=== PATIENT | male | born 1945 | race Caucasian/White ===

== ENCOUNTER 2016-07-27 19:24 | Inpatient (IN) ==
[2016-07-27] MEDS ORDERED: ACETAMINOPHEN 325 MG TABLET PO PRN (19:54)
[2016-07-27] MEDS ORDERED: ONDANSETRON 4 MG/2 ML VIAL IV PRN (19:54)
--- NOTE | 2016-07-27 19:54 | Emergency Department Note ---
Juan Oneil Brittany, am scribing for, and in the presence of, Yoanna Dejesus DO 19:51. IOleg Debra, DO, personally performed the services described in this documentation, ascribed by Tiffani Martinez in my presence, and it is both accurate and complete [id number] . Arrival - Arrival Chief Complaint: Non-Specific Stated Complaint: pnu ED Nursing Triage Note: transfer from [facility] for further oevalutaion of pnumonia. Mode of Arrival: Stretcher Limitations: No Limitations Source: Patient, RN Notes Reviewed - History of Present Illness HPI Narrative: Mr. Randhawa is a 71 y/o white male presenting to the ED by EMS from [facility] for further evaluation of Pneumonia. Patient reports that he presented to [facility] initially for complaints of shortness of breath which onset about 2 weeks ago. He had associated symptoms of cough, palpitations , vertigo, and lightheadedness, but denied any chest pain, diaphoresis, fever, or chills. He reports that he thought his symptoms were getting better until today when he became suddenly short of breath. Patient has a history of Pulmonary Hypertension and Sarcoidosis. Patient has no other complaint/pain. Onset (ago): week(s) (2) Consistency: constant Allergies/Adverse Reactions: Allergies Allergy/AdvReac Type Severity Reaction Status Date / Time Hydromorphone [From Dilaudid] Allergy ANAPHYLAXIS Verified 01/09/16 03:13 levofloxacin [From Levaquin] AdvReac Joint Pain Verified 01/09/16 03:13 Home Medications: Home Medications Medication Instructions Recorded Confirmed Type Azithromycin Tab [Zithromax Tab] 250 mg PO Q48H 11/16/15 01/09/16 History Cholecalciferol (Vitamin D3) 400 unit PO DAILY 11/16/15 01/09/16 History [Vitamin D3] Cyanocobalamin (Vitamin B-12) 1,000 mcg PO DAILY 11/16/15 01/09/16 History [Vitamin B-12] Dexlansoprazole [Dexilant] 60 mg PO DAILY 11/16/15 01/09/16 History Finasteride 5 mg PO DAILY 11/16/15 01/09/16 History Furosemide Tab [Lasix Tab] 20 mg PO BID DIURETIC PRN 11/16/15 01/09/16 History predniSONE TAB [PredniSONE] 10 mg PO Q48H 11/16/15 01/09/16 History Cyclobenzaprine [Flexeril] 10 mg PO TID #14 tablet 01/09/16 Rx HYDROcodone/ACETAMIN 7.5-325 1 tablet PO Q6H #14 tablet 01/09/16 Rx [[place] 7.5-325] Review of System - Review of System 12 point system: reviewed and no additional remarkable complaints except as stated - Review of System Constitutional: Absent: chills, fever Respiratory: Present: cough, respiratory distress Cardiovascular: Present: palpitations Neurological: Present: as per HPI, vertigo Medical,Surgical,& Family Hx - Medical History Neurology: No history of: Seizures Respiratory: History of: Pulmonary Hypertension Other: History of: Miscellaneous Medical Problems (sarcoidosis) - Social History Smoking Status: Never smoker Frequency of Alcohol Use: None Type of Drug Use: None Exam Vital Signs: Vital Signs Pulse Rate 122 H 07/27/16 19:37 Respiratory Rate 20 07/27/16 19:37 Blood Pressure 85/61 07/27/16 19:37 O2 Sat by Pulse Oximetry 98 07/27/16 19:37 - General General appearance: alert, in no apparent distress - Head Head exam: Present: atraumatic, normocephalic, normal inspection - Eye Eye exam: Present: normal appearance, PERRL, EOMI - ENT ENT exam: Present: normal exam, normal oropharynx - Neck Neck exam: Present: normal inspection, full ROM, trachea midline - Chest Chest inspection: Present: normal inspection, symmetric chest wall rise - Respiratory Respiratory exam: Present: rales (both lung saab bilaterally), wheezes (both lung saab bilaterally). Absent: normal lung sounds bilaterally - Cardiovascular Cardiovascular exam: Present: normal rhythm, tachycardia, normal heart sounds. Absent: regular rate - Abdominal Exam Abdominal exam: Present: soft, normal bowel sounds - Extremities Exam Extremities exam: Present: normal inspection - Back Exam Back exam: Present: normal inspection - Neurological Exam Neurological exam: Present: alert, oriented X3, CN II-XII intact. Absent: motor sensory deficit - Psychiatric Psychiatric exam: Present: normal affect, normal mood - Skin Skin exam: Present: warm, dry Course Course Narrative: spoke with Dr Martinez for Dr Farnsworth , who will admit pt. pt is stable at this time Results - Labs Lab Results: I have reviewed the patients labs Disposition Clinical Impression: Pneumonia Case discussed with: patient, patient's family Disposition: Still a Patient Condition: Stable Time of Disposition: 19:53
[2016-07-27] MEDS: ALBUTEROL/IPRATROPIUM 3 ML NEB RESP TX SCH ×2 (21:28→22:46)
[2016-07-27] MEDS: SODIUM CHLORIDE 0.9% 1,000 ML IV SCH (21:48)
[2016-07-27] MEDS: cefTRIAXone 1,000 MG in SODIUM CHLORIDE 0.9% 100 ML IV SCH (22:49)
[2016-07-27] MEDS: DOCUSATE SODIUM 100 MG CAPSULE PO SCH (22:52)
[2016-07-28 04:12] LABS: Basophils # 0.1 10*3/uL (0.0-0.2); Basophils % 0.2 % (0.0-0.8); Hematocrit 36.1 VOL% (42.0-52.0); Hemoglobin 12.5 GM/DL (14.0-18.0); Immature Granulocytes % 1.9 %; Immature Granulocytes Absolute 0.54 #; Lymphocytes # 0.5 10*3/uL (1.4-4.0); Lymphocytes % 1.7 % (21.2-54.2); Mean Corpuscular HGB Conc 34.6 GM/DL (32-36); Mean Corpuscular Hemoglobin 29 PG (27-34); Mean Corpuscular Volume 84.5 FL (87-102); Monocytes # 1.3 10*3/uL (0.11-0.8); Monocytes % 4.4 % (1.7-12.7); Neutrophils # 26.7 10*3/uL (1.4-7.4); Neutrophils % 91.8 % (38.7-73.9); Platelet Count 178 T/CUMM (130-400); Red Blood Count 4.27 MC/CUMM (3.8-5.5); Red Cell Distribution Width 13.8 % (9.3-17.3)
[2016-07-28 04:52] LABS: Anisocytosis Slight; Band Neutrophils 2 % (0-10); Lymphocytes 2 % (20-55); Microcytosis Slight; Platelet Estimate Normal; Segmented Neutrophils 93 % (50-85); Total Cells Counted 100
[2016-07-28] MEDS: SODIUM CHLORIDE 0.9% 1,000 ML IV SCH ×3 (05:50→20:58)
--- NOTE | 2016-07-28 07:26 | XRay Report ---
XR chest 2V Indication: Shortness of breath. Comparison: Chest x-ray 07/27/2016 Technique: PA and lateral chest x-ray was performed. Findings: Airspace opacities previously within the mid left lung have partially cleared. Diffuse parenchymal scarring is again demonstrated and a pleural-based density along the upper lateral left pleural surface remains present. Blunting the costophrenic angles is stable. Bilateral perihilar airspace opacification and interstitial stranding is again demonstrated. Partially calcified mediastinal and hilar lymph nodes appear stable. Heart size appears normal. Bones and soft tissues demonstrate no significant abnormalities. Impression: 1. Diffuse parenchymal scarring is again demonstrated with interval partial clearing of airspace opacities from the mid left lung parenchyma. Pleural-based density left upper chest is stable in size. 2. Partially calcified mediastinal and hilar lymph nodes are present suggesting prior granulomatous disease or sarcoid. 07/28/2016 7:21 AM PROCEDURE INTERPRETED AT [facility] DEPARTMENT OF RADIOLOGY Final Report Signed by: Dr. Yovani Rees
--- NOTE | 2016-07-28 07:39 | Family Practice History&Phys ---
Assessment and Plan (1) Sarcoidosis Status: Acute Assessment and plan: 07/28/2016: Patient receiving IV steroids at this time. Will defer to pulmonary as to whether to continue or a rapid taper Current Visit: Yes (2) Cervical spondylitis with radiculitis Status: Acute Assessment and plan: 08-12: Patient does see Dr. Oliveira for this and gets epidural injections. He is currently getting pain medicines Current Visit: Yes (3) Pneumonia Status: Acute Assessment and plan: 08-12: We do have him on antibiotics at this time. His white count was 29,000, unsure if this was related to steroids or current pulmonary infiltrate or combination Current Visit: Yes History of Present Illness Chief complaint: Pneumonia, severe bronchospasm, sarcoidosis history History of present illness: Mr. Randhawa is a 71 year old male A primary patient of Dr. Priscilla Farnsworth, was seen at [facility] in [place] after he he started having severe bronchospasms/coughing spells. 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 This is when the symptoms began and he could not stop coughing. At [place] it was noted that he had a infiltrate in his lungs and was sent down to [facility] for further evaluation and treatment for pneumonia. He states his oxygen sats were in the 70s and that his blood pressure was as low as 60-70. Was doing okay, prior to this episode. He denies any recent fever. As mentioned he does have a history of sarcoidosis which she has had for many years and has been seen in [place] [employer] for this by Dr. Teague (a cotton washer). Is scheduled to see Dr. Jose Manuel Farnsworth this month. At this time is stable. I did not see his chest x- ray from [place] but I did order one this morning here at [place]. His white count this morning was 29,000. He has been started on antibiotic and I am going to put him on steroids. We will get pulmonary to see him today and appreciate their consult and direction Home Medications Medication Instructions Recorded Confirmed Type Cholecalciferol (Vitamin D3) 400 unit PO DAILY 11/16/15 07/27/16 History [Vitamin D3] Cyanocobalamin (Vitamin B-12) 1,000 mcg PO DAILY 11/16/15 07/27/16 History [Vitamin B-12] Dexlansoprazole [Dexilant] 60 mg PO DAILY 11/16/15 07/27/16 History Finasteride 5 mg PO DAILY 11/16/15 07/27/16 History predniSONE TAB [PredniSONE] 10 mg PO Q48H 11/16/15 07/27/16 History Albuterol Neb [Proventil Neb] 2.5 mg RESP TX Q6H PRN 07/27/16 07/27/16 History Fluticasone/Salmeterol 500-50 1 puff INH BID 07/27/16 07/27/16 History [Advair 500-50] guaiFENesin [Mucinex] 600 mg PO BID 07/27/16 07/27/16 History Allergies Allergy/AdvReac Type Severity Reaction Status Date / Time Hydromorphone [From Dilaudid] Allergy ANAPHYLAXIS Verified 01/09/16 03:13 levofloxacin [From Levaquin] AdvReac Joint Pain Verified 01/09/16 03:13 12 point system: reviewed and no additional remarkable complaints except as stated (That mentioned in the history and physical, and he also has a history of chronic pain in the cervical spine and does receive epidural injections) Medical,Surgical,& Family Hx - Medical History Neurology: No history of: Seizures HEENT: History of: Ear Problem (gets stopped up) Endocrine: Comment Only: Thyroid Disorder (was told levels were low today and had ultrasound) Rheumatology: History of;: Rheumatoid Arthritis Respiratory: History of: Pulmonary Hypertension, Respiratory Problems ( sarcodosis, pseudomonas in bronchial washing, chest tubes from collapsed silvia) Genitourinary: History of: Prostate Problems (enlarged prostate) Gastrointestinal: History of: GERD, GI Problems (barrets disease) Musculoskeletal: History of: Back/Neck Problems, Musculoskeletal Problems ( takes epidurals for chronic neck pain) Other: History of: Cancer (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), Miscellaneous Medical Problems (sarcoidosis) - Surgical History Cardiac Surgeries: Sugical HX of: Cardiac Catheterization Abdominal Surgeries: Surgical HX of: Colonoscopy, EGD - Family History Family History: Reports;: Family Cancer (sister had breast and brain, mom had ovarian), Family Diabetes (father), Family Heart Disease (father) Denies;: Family Anesthesia Reaction, Family Hematology, Family Hypertension, Family Psychiatric Problems, Family Stroke - Social History Smoking Status: Never smoker Frequency of Alcohol Use: None Type of Drug Use: None Exam - Constitutional Vitals: Period Temp Pulse Resp BP Sys/De Paz Pulse Ox Last 24 Hr 97.3 F-98.2 F 92-122 18-26 85-115/56-69 93-100 Exam: Generally very pleasant gentleman. He has chronic issues as noted. Admits that he has a mild headache. Is very alert and oriented. Not having coughing spells at present. HEENT neck is supple, trachea is midline. He did have a thyroid ultrasound done yesterday. No respiratory stridor Cardiovascular rate is regular no gallop or rub is appreciated Lungs there are a few basilar rales and he also has some wheezing scattered but no respiratory distress Abdomen soft nondistended patient is somewhat small in stature in size and perhaps a little emaciated general Extremities no clubbing cyanosis or edema Neurologically fully intact. No cranial nerve deficits or lateralizing motor or sensory deficits Results - Labs CBC & BMP: 07/28/16 03:27
[2016-07-28] MEDS: ALBUTEROL/IPRATROPIUM 3 ML NEB RESP TX SCH ×3 (07:50→20:08)
--- NOTE | 2016-07-28 09:39 | Pulmonology Consult Note ---
Assessment and Plan (1) Pulmonary hypertension Status: Acute Assessment and plan: This is secondary to his sarcoid. It was treated with Adcirca but that was not helping him. That was discontinued. Cardiology at [facility] had him on that. Current Visit: Yes (2) Acute and chronic respiratory failure Status: Acute Assessment and plan: Severe hypoxemia which is improved with nasal oxygen. Need to check ABGs Current Visit: Yes (3) Pneumonia Status: Acute Assessment and plan: Has very thick yellow sputum. I suspect that this will be a gram-negative 1 so we will add Zosyn. Current Visit: Yes (4) Sarcoidosis Status: Acute Assessment and plan: Has had sarcoid over 30 years. Likely it is inactive at present but he is on low-dose prednisone 10 mg every other day. Agree with treating with higher dose of steroids during the exacerbation Current Visit: Yes (5) Cervical spondylitis with radiculitis Status: Acute Assessment and plan: He has had multiple injections and takes chronic pain medications. Current Visit: Yes History of Present Illness Chief complaint: Cough shortness of breath History of present illness: Mr. Randhawa is a 71 year old male who has a history of sarcoid for 30 years. He was followed by Dr. Farnsworth until about 3 years ago. He was having recurrent Pseudomonas infections. He was referred to [facility]. Found to have pulmonary hypertension secondary to his sarcoid. Was tried on some medication for that but it did not help so he was turned back over to the pulmonary doctors at [facility]. He is currently only on 10 mg every other day of prednisone. He is on Advair for COPD. He was a smoker until the mid 80s as well. He is on oxygen at home 2 L continuously. He developed increased cough congestion and apparently got a mucous plug yesterday went to the emergency room in [place]. Oxygen saturation was in the 70s and he was referred here. He has an elevated white count of 29,000. He is feeling better now that he has had medications and oxygen here. His oxygen saturation is come up into the 90s on 3 L nasal oxygen. Home Medications Medication Instructions Recorded Confirmed Type Cholecalciferol (Vitamin D3) 400 unit PO DAILY 11/16/15 07/27/16 History [Vitamin D3] Cyanocobalamin (Vitamin B-12) 1,000 mcg PO DAILY 11/16/15 07/27/16 History [Vitamin B-12] Dexlansoprazole [Dexilant] 60 mg PO DAILY 11/16/15 07/27/16 History Finasteride 5 mg PO DAILY 11/16/15 07/27/16 History predniSONE TAB [PredniSONE] 10 mg PO Q48H 11/16/15 07/27/16 History Albuterol Neb [Proventil Neb] 2.5 mg RESP TX Q6H PRN 07/27/16 07/27/16 History Fluticasone/Salmeterol 500-50 1 puff INH BID 07/27/16 07/27/16 History [Advair 500-50] guaiFENesin [Mucinex] 600 mg PO BID 07/27/16 07/27/16 History Allergies Allergy/AdvReac Type Severity Reaction Status Date / Time Hydromorphone [From Dilaudid] Allergy ANAPHYLAXIS Verified 01/09/16 03:13 levofloxacin [From Levaquin] AdvReac Joint Pain Verified 01/09/16 03:13 12 point system: reviewed and no additional remarkable complaints except as stated - Constitutional Constitutional: Present: malaise, weakness - Cardiovascular Cardiovascular: Present: dyspnea, dyspnea on exertion - Respiratory Respiratory: Present: cough, dyspnea, hemoptysis (He has had some blood- streaked sputum), dyspnea on exertion, wheezing, change in phlegm color - Gastrointestinal Gastrointestinal: Present: constipation - Musculoskeletal Musculoskeletal: Present: back pain (Has injections in his neck for cervical spondylosis) Exam (Pulmonay) H&P - Constitutional Vitals: Period Temp Pulse Resp BP Sys/De Paz Pulse Ox Last 24 Hr 97.3 F-98.2 F 92-122 18-26 85-115/56-69 93-100 Exam: Patient is alert and oriented. Vital signs are normal. Oxygen saturation 95% on 3 L. Pupils react to light. Throat is clear. Neck supple no bruits. Chest reveals some scattered musical rhonchi bilaterally. Heart normal rate rhythm no murmurs. Abdomen soft nontender no masses. Extremities no clubbing cyanosis edema. Calves nontender. Medical,Surgical,& Family Hx - Medical History Neurology: No history of: Seizures HEENT: History of: Ear Problem (gets stopped up) Endocrine: Comment Only: Thyroid Disorder (was told levels were low today and had ultrasound) Rheumatology: History of;: Rheumatoid Arthritis Respiratory: History of: Pulmonary Hypertension, Respiratory Problems ( sarcodosis, pseudomonas in bronchial washing, chest tubes from collapsed silvia) Genitourinary: History of: Prostate Problems (enlarged prostate) Gastrointestinal: History of: GERD, GI Problems (barrets disease) Musculoskeletal: History of: Back/Neck Problems, Musculoskeletal Problems ( takes epidurals for chronic neck pain) Other: History of: Cancer (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), Miscellaneous Medical Problems (sarcoidosis) - Surgical History Cardiac Surgeries: Sugical HX of: Cardiac Catheterization Abdominal Surgeries: Surgical HX of: Colonoscopy, EGD - Family History Family History: Reports;: Family Cancer (sister had breast and brain, mom had ovarian), Family Diabetes (father), Family Heart Disease (father) Denies;: Family Anesthesia Reaction, Family Hematology, Family Hypertension, Family Psychiatric Problems, Family Stroke - Social History Smoking Status: Never smoker Frequency of Alcohol Use: None Type of Drug Use: None Results - Labs CBC & BMP: 07/28/16 03:27 Lab Results: I have reviewed the past 24 hour labs - Diagnostic Findings Procedure: Chest x-ray: image reviewed by me (Chronic interstitial changes bilaterally with some hyperinflation. Really no significant change since x-ray of 2014 here.)
[2016-07-28] MEDS: ENOXAPARIN 30 MG/0.3 ML SYRINGE SUBCUT SCH (09:49)
[2016-07-28] MEDS: methylPREDNISolone SOD SUC 125 MG/2 ML VIAL IV SCH ×2 (09:49→18:46)
[2016-07-28] MEDS: DOCUSATE SODIUM 100 MG CAPSULE PO SCH ×2 (09:51→20:58)
[2016-07-28] MEDS: PANTOPRAZOLE 40 MG TABLET PO SCH (09:51)
[2016-07-28] MEDS: FINASTERIDE 5 MG TABLET PO SCH (09:54)
[2016-07-28] MEDS: ACETAMINOPHEN 500 MG TABLET PO SCH ×5 (10:18→20:57)
[2016-07-28] MEDS: FLUTICASONE/SALMETEROL 500-50 DISKUS 14 DOSE INH SCH ×2 (10:18→20:58)
[2016-07-28] MEDS: PIPERACILLIN/TAZOBACTAM 3,375 MG in SODIUM CHLORIDE 0.9% 100 ML IV SCH ×2 (13:29→18:45)
[2016-07-28] MEDS: DORNASE ALFA 2.5 MG/2.5 ML VIAL RESP TX SCH (20:08)
[2016-07-28] MEDS: cefTRIAXone 1,000 MG in SODIUM CHLORIDE 0.9% 100 ML IV SCH (20:57)
[2016-07-28] MEDS: METHOCARBAMOL 750 MG TABLET PO PRN (20:58)
[2016-07-29] MEDS ORDERED: METHOCARBAMOL 750 MG TABLET PO SCH
[2016-07-29] MEDS: ALBUTEROL/IPRATROPIUM 3 ML NEB RESP TX SCH ×4 (00:10→21:46)
[2016-07-29] MEDS: METHOCARBAMOL 750 MG TABLET PO PRN ×2 (06:17→09:37)
[2016-07-29] MEDS: PIPERACILLIN/TAZOBACTAM 3,375 MG in SODIUM CHLORIDE 0.9% 100 ML IV SCH ×2 (06:17→15:31)
[2016-07-29] MEDS: SODIUM CHLORIDE 0.9% 1,000 ML IV SCH (06:17)
[2016-07-29] MEDS: methylPREDNISolone SOD SUC 125 MG/2 ML VIAL IV SCH ×2 (06:17→18:10)
[2016-07-29] MEDS: ENOXAPARIN 30 MG/0.3 ML SYRINGE SUBCUT SCH (06:18)
[2016-07-29] MEDS: DORNASE ALFA 2.5 MG/2.5 ML VIAL RESP TX SCH ×2 (07:28→21:46)
[2016-07-29] MEDS ORDERED: ALBUTEROL/IPRATROPIUM 3 ML NEB RESP TX PRN (09:02)
[2016-07-29] MEDS: ACETAMINOPHEN 500 MG TABLET PO SCH ×4 (09:36→22:31)
[2016-07-29] MEDS: FINASTERIDE 5 MG TABLET PO SCH (09:37)
[2016-07-29] MEDS: DOCUSATE SODIUM 100 MG CAPSULE PO SCH ×2 (09:37→22:31)
[2016-07-29] MEDS: PANTOPRAZOLE 40 MG TABLET PO SCH (09:37)
[2016-07-29] MEDS: FLUTICASONE/SALMETEROL 500-50 DISKUS 14 DOSE INH SCH ×2 (09:37→21:43)
--- NOTE | 2016-07-29 10:26 | Pulmonology Progress Note ---
Pulmonary - PN: Subj Interval history: This is a 71-year-old white male patient who was seen along with his . I am seeing this patient for . This patient has sarcoidosis. He probably has pneumonia. He said thick tenacious sputum which is been hard to mobilize. He said some desaturation. In the past she was followed in the clinic but now is [facility] at [facility]. Dr. Jose Manuel Farnsworth will pick him up next week. This patient complains of pain in his lower anterior right chest. This is reproduced with pressure over the costochondral junctions in this area. Will treat this with topical Flector patches. On his old chest x-ray he has fluid in this area so it is possible this more to the pain in the musculoskeletal component. The patient is having trouble mobilizing his sputum. He is already on Pulmozyme and he is getting 9 duo nebs 4 times daily. I have increased this to 4 times daily and as needed and his is asked me to add Acapella which she calls "duck call Admit white blood cell count was 29,000. There are no positive cultures reported. Labs been reviewed. Medicines been reviewed Physical exam. Vital signs. See below. Psychiatric oriented 3 Face. Symmetrical. Lips and tongue are normal Neck. Symmetrical. No meningismus Lymphatics. No submandibular cervical supraclavicular or epitrochlear adenopathy Chest. Loose large airway congestion. Tender over the right lower anterior chest. Heart. No gallop Abdomen. Positive bowel sounds Lower extremities. No edema The remainder the physical exam is negative. Plan. 1. Continue present regimen 2. Add Flector patches 3. Add Acapella Exam (Progress Note) - Constitutional Vitals: Period Temp Pulse Resp BP Sys/De Paz Pulse Ox Last 24 Hr 96.6 F-98.3 F 97-115 18-24 116-139/69-77 90-99 Results - Labs CBC & BMP: 07/28/16 03:27
[2016-07-29 10:44] LABS: Hematocrit 35.1 VOL% (42.0-52.0); Hemoglobin 12.3 GM/DL (14.0-18.0); Immature Granulocytes % 1.1 %; Immature Granulocytes Absolute 0.26 #; Lymphocytes # 0.3 10*3/uL (1.4-4.0); Lymphocytes % 1.2 % (21.2-54.2); Mean Corpuscular Hemoglobin 29 PG (27-34); Mean Corpuscular Volume 83.2 FL (87-102); Mean Platelet Volume 9.8 FL (9.6-12.0); Monocytes # 0.9 10*3/uL (0.11-0.8); Neutrophils # 21.4 10*3/uL (1.4-7.4); Neutrophils % 93.7 % (38.7-73.9); Platelet Count 198 T/CUMM (130-400); Red Blood Count 4.22 MC/CUMM (3.8-5.5); Red Cell Distribution Width 13.7 % (9.3-17.3); White Blood Count 22.8 T/CUMM (4-12)
[2016-07-29] MEDS: DICLOFENAC 1.3% PATCH 5/PACK TRANSDERM SCH ×2 (10:47→22:32)
--- NOTE | 2016-07-29 11:19 | Internal Med Progress Note ---
Assessment and Plan (1) Pneumonia Status: Acute Assessment and plan: 71-year-old male admitted to acute care * Acute on chronic respiratory failure. He will be continued on oxygen. He is getting nebulizer treatment * Pneumonia. Patient is on antibiotics. Cultures are pending * Pulmonary hypertension. This is a major component of his shortness of breath * Abdominal pain. Patient is constipated. Will check KUB. Will also check liver functions and amylase and lipase * History of sarcoidosis. On chronic low-dose prednisone * Discussed with patient and his Current Visit: Yes (2) Abdominal pain Status: Acute Current Visit: Yes (3) Constipation Status: Acute Current Visit: Yes (4) Pulmonary hypertension Status: Acute Current Visit: Yes (5) Sarcoidosis Status: Acute Current Visit: Yes Internal Medicine - PN: Subj Interval history: Patient is not feeling better this morning. He feels more short of breath and is having abdominal pain. He has been constipated for at least 5 days. He is still coughing up phlegm. Exam (Progress Note) - Constitutional Vitals: Period Temp Pulse Resp BP Sys/De Paz Pulse Ox Last 24 Hr 96.6 F-98.3 F 97-115 18-24 116-139/69-77 90-99 Exam: Examination: GENERAL: NAD. HEENT: PERRLA. EOMI. oral candidiasis NECK: Neck is supple. CVS: Regular rate and rhythm. S1 and S2 are normal. RESPIRATORY: Decreased air entry overall with bilateral rhonchi. Tenderness in right lower chest wall ABDOMEN: Soft but tender. Bowel sounds are EXT: No edema. Peripheral pulses are present. J2EE CONSULTANT: Patient is awake, alert and oriented to time place and person. Cranial nerves II through XII are grossly intact. SKIN: Warm and dry. MSK: No obvious deformity. Results - Labs CBC & BMP: 07/29/16 10:39 Lab Results: I have reviewed the past 24 hour labs
[2016-07-29 11:23] LABS: Hypochromasia Slight; Osmolality,Calculated 274.5 MOS/KG (273-304); Ovalocytes Slight; Platelet Estimate Normal; Potassium 3.8 MMOL/L (3.5-5.1); Segmented Neutrophils 96 % (50-85); Total Cells Counted 100
[2016-07-29 11:24] LABS: Microcytosis Slight
[2016-07-29 11:33] LABS: Albumin 2.8 G/DL (3.4-5.0); Bilirubin,Direct 0.1 MG/DL (0.0-0.20); Bilirubin,Indirect 0.3 MG/DL (0.0-1.0); Bilirubin,Total 0.4 MG/DL (0.2-1.0); Total Protein 5.9 G/DL (6.4-8.3)
[2016-07-29] MEDS ORDERED: SODIUM CHLORIDE 0.9% 1,000 ML IV SCH (11:42)
[2016-07-29] MEDS: POLYETHYLENE GLYCOL POWDER 17 GM PACK PO SCH (13:30)
--- NOTE | 2016-07-29 14:30 | XRay Report ---
XR abdomen complete w decub Clinical Information: Abdominal Pain constipation 5 days Comparison: None Findings: Bowel gas pattern is nonspecific and within normal limits. No abnormally dilated small bowel loops are identified to suggest obstruction. There is no free air identified. Moderate fecal material is noted throughout colon, which is otherwise nondilated. No abnormal focal soft tissue masses or calcific densities are identified in the abdomen or pelvis. Lung bases demonstrate extensive interstitial thickening changes likely representing a degree of underlying pulmonary fibrosis. Blunting of the costophrenic angle small bilateral pleural effusions and basilar opacities are also suggested but not well imaged. Multiple calcified hilar nodes are also partially visualized. There is no acute osseous abnormality. No suspicious osseous lesions are identified. Impression: No acute radiographic abnormality in the abdomen. A moderate degree of fecal stasis/constipation is suspected. Probable extensive scarring and/or underlying interstitial fibrotic changes within the lungs with small-moderate pleural effusions and basilar atelectasis. PROCEDURE INTERPRETED AT [facility] DEPARTMENT OF RADIOLOGY Final Report Signed by: Jared Hyatt
[2016-07-29] MEDS ORDERED: FUROSEMIDE 20 MG/2 ML VIAL IV ONE (16:10)
[2016-07-29] MEDS ORDERED: SUCCINYLCHOLINE 200 MG/10 ML VIAL ONE (19:23)
[2016-07-29] MEDS ORDERED: ETOMIDATE 20 MG/10 ML VIAL IV ONE (19:23)
[2016-07-29] MEDS ORDERED: PROPOFOL 1,000 MG/100 ML BOTTLE IV ONE (19:42)
--- NOTE | 2016-07-29 19:46 | Internal Med Progress Note ---
Assessment and Plan (1) Pneumonia Status: Acute Assessment and plan: 71-year-old male admitted to acute care * Patient had acute respiratory failure. He was intubated and CPR was given. Patient regained pulse and is in the CCU. His blood pressure is stable. Will check EKG and cardiac enzymes * Patient with history of pulmonary hypertension secondary to sarcoid. He will be continued on steroid. * He will be continued on broad-spectrum antibiotics * Cardiology consulted to help with patient care * His venous Doppler studies are pending * Discussed with his . She understands that he is in critical condition. She wants everything to be done acutely but not to keep him on life support if there is no hope. Current Visit: Yes (2) Abdominal pain Status: Acute Current Visit: Yes (3) Constipation Status: Acute Current Visit: Yes (4) Pulmonary hypertension Status: Acute Current Visit: Yes (5) Sarcoidosis Status: Acute Current Visit: Yes Internal Medicine - PN: Subj Interval history: Patient had come back after her venous Doppler study and went to restroom. He quit breathing. DEON NOWAK was called and patient was intubated. He did receive CPR. Patient has been moved into CCU. Discussed with his who was present with him. She states that he was not comfortable and said that he could not breathe Exam (Progress Note) - Constitutional Vitals: Period Temp Pulse Resp BP Sys/De Paz Pulse Ox Last 24 Hr 96.6 F-98.2 F 102-116 20-32 126-142/66-81 88-99 Exam: Examination: GENERAL: Patient intubated HEENT: Pupils are reactive NECK: Neck is supple. CVS: S1 and S2 are normal. Tachycardic RESPIRATORY: Decreased air entry overall with bilateral rhonchi. ABDOMEN: Soft but tender. Bowel sounds are EXT: No edema. Peripheral pulses are present. WELDING OPERATOR: Patient intubated on the ventilator SKIN: Warm and dry. MSK: No obvious deformity. Results - Labs CBC & BMP: 07/29/16 10:39 07/29/16 10:39 Lab Results: I have reviewed the past 24 hour labs
[2016-07-29 20:14] LABS: Basophils % 0.1 % (0.0-0.8); Hematocrit 36.7 VOL% (42.0-52.0); Hemoglobin 12.4 GM/DL (14.0-18.0); Immature Granulocytes % 3.3 %; Immature Granulocytes Absolute 0.82 #; Lymphocytes # 0.8 10*3/uL (1.4-4.0); Mean Corpuscular HGB Conc 33.8 GM/DL (32-36); Mean Corpuscular Hemoglobin 29 PG (27-34); Mean Corpuscular Volume 86.2 FL (87-102); Mean Platelet Volume 9.7 FL (9.6-12.0); Monocytes # 2.1 10*3/uL (0.11-0.8); Monocytes % 8.2 % (1.7-12.7); Neutrophils # 21.3 10*3/uL (1.4-7.4); Neutrophils % 85.4 % (38.7-73.9); Platelet Count 247 T/CUMM (130-400); Red Blood Count 4.26 MC/CUMM (3.8-5.5); Red Cell Distribution Width 13.7 % (9.3-17.3)
[2016-07-29] MEDS: PROPOFOL 1,000 MG/100 ML BOTTLE IV SCH (20:27)
[2016-07-29 20:28] LABS: Calcium 7.8 MG/DL (8.5-10.1); Magnesium 2.3 MG/DL (1.8-2.4); Osmolality,Calculated 271.8 MOS/KG (273-304); Potassium 4.6 MMOL/L (3.5-5.1)
[2016-07-29 20:33] LABS: CKMB % 2.1 %
[2016-07-29 20:34] LABS: Troponin I Only 0.305 NG/ML (0.00-0.045)
[2016-07-29 20:38] LABS: Lymphocytes 1 % (20-55); Segmented Neutrophils 92 % (50-85); Total Cells Counted 100
[2016-07-29 20:39] LABS: Acanthocytes 1+; Ovalocytes Slight; Polychromasia Slight; Schistocytes Slight
[2016-07-29 21:24] LABS: ABG Base Excess -2.1 MMOL/L (-2.5-2.5); ABG HCO3 24.4 MMOL/L (20-26); ABG Oxygen Saturation 99.6 % (95-100); ABG PH 7.315 (7.35-7.45); ABG PO2 411.8 MM HG (80-95); ABG TCO2 25.9 MMOL/L (23-27)
--- NOTE | 2016-07-29 21:34 | XRay Report ---
Exam: XR chest 1V portable Indication: Respiratory failure, intubated Comparison study: 07/28/2016 chest radiograph Findings: Endotracheal tube is now noted in position with the tip terminating approximately 3 cm from the fannie. Extensive pulmonary interstitial prominence likely represent an underlying fibrotic changes and scarring appears similar to prior. There is no pneumothorax. Prominent basilar opacities and blunting of the costophrenic angles appear similar to prior likely representing pleural effusions and basilar infiltrates/atelectasis. Cardiac silhouette and mediastinal contours are partially obscured but appear grossly unchanged from prior. Multiple partially calcified mediastinal/hilar lymph nodes are noted. Impression: Endotracheal tube in position. Extensive pulmonary fibrotic changes and interstitial scarring changes appear essentially unchanged from prior. PROCEDURE INTERPRETED AT [facility] DEPARTMENT OF RADIOLOGY Final Report Signed by: Jared Hyatt
[2016-07-29 21:54] LABS: Apearance,Urine CLOUDY (Clear); Bilirubin,Urine Negative (Negative); Blood, Urine Large mg/dL (Negative); Glucose,Urine (UA) Negative (Negative); Granular Casts,Urine 41 /LPF (0-1); Ketones,Urine Negative (Negative); Nitrite,Urine Negative (Negative); Protein,Urine 100 MG/DL; RBC,Urine 455 /HPF (0-4); Squamous Epithelial Cell,Urine Occasional /HPF (0-10); Urine Color Yellow (Yellow); Urine Specific Gravity 1.016 (1.001-1.035); Urine Urobilinogen < 2.0 EU/DL (0.2-1.0); WBC,Urine 7 /HPF (0-6)
[2016-07-29] MEDS: NYSTATIN 500,000 UNIT/5 ML UDCUP SWISH/SWAL SCH (22:31)
[2016-07-29] MEDS: guaiFENesin 200 MG/10 ML UDCUP NG SCH (22:31)
[2016-07-29] MEDS: cefTRIAXone 1,000 MG in SODIUM CHLORIDE 0.9% 100 ML IV SCH (22:32)
[2016-07-30] MEDS: PIPERACILLIN/TAZOBACTAM 3,375 MG in SODIUM CHLORIDE 0.9% 100 ML IV SCH ×4 (00:05→23:04)
[2016-07-30] MEDS: ALBUTEROL/IPRATROPIUM 3 ML NEB RESP TX SCH ×4 (00:59→19:28)
[2016-07-30] MEDS: PROPOFOL 1,000 MG/100 ML BOTTLE IV SCH ×3 (02:52→20:44)
[2016-07-30 03:41] LABS: ABG Base Excess 2.4 MMOL/L (-2.5-2.5); ABG HCO3 26.5 MMOL/L (20-26); ABG Oxygen Saturation 99.7 % (95-100); ABG PCO2 35.8 MM HG (35-48); ABG PH 7.467 (7.35-7.45)
[2016-07-30 04:37] LABS: Basophils % 0.1 % (0.0-0.8); Hematocrit 32.3 VOL% (42.0-52.0); Hemoglobin 11.1 GM/DL (14.0-18.0); Immature Granulocytes % 0.9 %; Immature Granulocytes Absolute 0.13 #; Lymphocytes # 0.3 10*3/uL (1.4-4.0); Lymphocytes % 2.2 % (21.2-54.2); Mean Corpuscular HGB Conc 34.4 GM/DL (32-36); Mean Corpuscular Hemoglobin 29 PG (27-34); Mean Platelet Volume 10.5 FL (9.6-12.0); Monocytes # 1.3 10*3/uL (0.11-0.8); Monocytes % 8.8 % (1.7-12.7); Neutrophils # 12.6 10*3/uL (1.4-7.4); Platelet Count 174 T/CUMM (130-400); Red Blood Count 3.89 MC/CUMM (3.8-5.5); Red Cell Distribution Width 13.9 % (9.3-17.3); White Blood Count 14.3 T/CUMM (4-12)
[2016-07-30] MEDS: guaiFENesin 200 MG/10 ML UDCUP NG SCH ×4 (04:37→21:04)
[2016-07-30 05:05] LABS: Albumin 2.5 G/DL (3.4-5.0); Bilirubin,Total 0.8 MG/DL (0.2-1.0); Calcium 8.1 MG/DL (8.5-10.1); Osmolality,Calculated 272.5 MOS/KG (273-304); Total Protein 5.2 G/DL (6.4-8.3)
[2016-07-30 05:32] LABS: Lymphocytes 4 % (20-55); Platelet Estimate Normal; Segmented Neutrophils 89 % (50-85); Total Cells Counted 100
--- NOTE | 2016-07-30 05:48 | Ultrasound Report ---
Indication: Shortness of breath Duplex scan of the bilateral lower extremity veins Technique: Duplex scan of the bilateral lower extremity veins using B-mode/grayscale imaging and Doppler spectral analysis and color flow Findings: Major venous structures of the bilateral lower extremity demonstrate a normal course and caliber. There is no evidence of deep vein thrombosis. No abnormal intrinsic echogenic lesions are demonstrated in the scanned blood vessels. Veins demonstrate good compressibility with normal color flow study and spectral analysis. Impression: Unremarkable duplex imaging of the bilateral lower extremity veins. No evidence of DVT PROCEDURE INTERPRETED AT [facility] DEPARTMENT OF RADIOLOGY Final Report Signed by: Jared Hyatt
[2016-07-30] MEDS: methylPREDNISolone SOD SUC 125 MG/2 ML VIAL IV SCH ×2 (06:01→18:20)
[2016-07-30] MEDS: ENOXAPARIN 30 MG/0.3 ML SYRINGE SUBCUT SCH (06:05)
--- NOTE | 2016-07-30 07:24 | EKG Report ---
Please refer to the EKG image. Final interpretation is pending.
--- NOTE | 2016-07-30 08:25 | Internal Med Progress Note ---
Assessment and Plan (1) Pneumonia Status: Acute Assessment and plan: 71-year-old male admitted to acute care * Patient had acute respiratory failure. Probably secondary to under lying pulmonary fibrosis * Patient with history of pulmonary hypertension secondary to sarcoid. He will be continued on steroid. * He will be continued on broad-spectrum antibiotics * Cardiology consulted to help with patient care * His venous Doppler studies are pending * Discussed with his . Current Visit: Yes (2) Abdominal pain Status: Acute Current Visit: Yes (3) Constipation Status: Acute Current Visit: Yes (4) Pulmonary hypertension Status: Acute Current Visit: Yes (5) Sarcoidosis Status: Acute Current Visit: Yes Internal Medicine - PN: Subj Interval history: Patient appears to be comfortable on ventilator. No problems during the night. His is present bedside. Exam (Progress Note) - Constitutional Vitals: Period Temp Pulse Resp BP Sys/De Paz Pulse Ox Last 24 Hr 98.0 F-98.2 F 94-127 16-32 92-142/57-94 88-100 Exam: Examination: GENERAL: Patient intubated HEENT: Pupils are reactive NECK: Neck is supple. CVS: S1 and S2 are normal. Tachycardic RESPIRATORY: Decreased air entry overall with bilateral rhonchi. ABDOMEN: Soft but tender. Bowel sounds are EXT: No edema. Peripheral pulses are present. 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 Results - Labs CBC & BMP: 07/30/16 03:34 07/30/16 03:34 Lab Results: I have reviewed the past 24 hour labs
[2016-07-30] MEDS: DORNASE ALFA 2.5 MG/2.5 ML VIAL RESP TX SCH ×2 (08:48→19:28)
[2016-07-30] MEDS: NYSTATIN 500,000 UNIT/5 ML UDCUP SWISH/SWAL SCH ×4 (09:00→20:45)
[2016-07-30] MEDS: PANTOPRAZOLE 40 MG TABLET PO SCH (09:00)
[2016-07-30] MEDS: DOCUSATE SODIUM 100 MG CAPSULE PO SCH ×2 (09:01→20:43)
[2016-07-30] MEDS: ACETAMINOPHEN 500 MG TABLET PO SCH ×4 (09:01→20:18)
[2016-07-30] MEDS: FINASTERIDE 5 MG TABLET PO SCH (09:01)
[2016-07-30] MEDS: DICLOFENAC 1.3% PATCH 5/PACK TRANSDERM SCH ×2 (09:02→20:43)
[2016-07-30] MEDS: POLYETHYLENE GLYCOL POWDER 17 GM PACK PO SCH (09:02)
[2016-07-30] MEDS: FLUTICASONE/SALMETEROL 500-50 DISKUS 14 DOSE INH SCH ×2 (09:03→20:18)
[2016-07-30] MEDS: DESITIN 4OZ/NYSTATIN 15 GRAM MIXTURE PASTE TOP SCH ×2 (09:07→20:46)
--- NOTE | 2016-07-30 09:07 | Cardiology Consult Note ---
Assessment and Plan - Time spent with patient Time spent with patient: Greater than 30 minutes (Chart review, examination, and orders) (1) Acute and chronic respiratory failure Status: Acute Assessment and plan: Multifactorial supportive care. Current Visit: Yes (2) Pulmonary hypertension Status: Chronic Current Visit: Yes (3) Sarcoidosis Status: Chronic Current Visit: Yes (4) Sinus tachycardia Status: Acute Assessment and plan: This appears appropriate for his current clinical setting. No further recommendations to change that at this time. Current Visit: Yes History of Present Illness - Data of Consult Patient: new to practice Consult date: 07/30/16 Requesting Physician: Eder Sanabria Primary care physician: Priscilla Farnsworth - Consult Narrative Reason for consult: Tachycardia History of present illness: Mr. Randhawa is a 71 year old male with spondylosis and sarcoid who is admitted with a long process initially diagnosis pneumonia who developed respiratory distress on the floor yesterday was intubated received a dose of epinephrine had sinus tachycardia post procedure. I reviewed his ECGs I see no acute process he has a pulmonary disease type pattern with incomplete right bundle branch block and atrial abnormality. I saw the patient in the ICU earlier this morning intubated and sedated. He has had an echo performed but is not yet available or downloaded for me to interpret. His troponin is negligibly elevated most likely due to right ventricular strain and/or demand ischemia from the administration of epinephrine yesterday and acute decompensation from a respiratory status with respiratory acidosis with acidemia. I will continue to support the patient with medications as needed. Hopefully treating his underlying lung process with mechanical ventilation antibiotic steroids etc. as per pulmonary and Dr. Sanabria the patient's cardiac status will improve. Await the transthoracic echo in our reviewed as soon as available. I do not hear any significant valvular abnormality on his cardiac exam today. The patient is intubated and sedated. I reviewed his chart his chest x-ray his labs. He has no old studies in the PACS system and I do not see any documentation is ever seen a sprue knocker before. CC: Priscilla Farnsworth, DO - Home Medications and Allergies Home Medications: Home Medications Medication Instructions Recorded Confirmed Type Cholecalciferol (Vitamin D3) 400 unit PO DAILY 11/16/15 07/27/16 History [Vitamin D3] Cyanocobalamin (Vitamin B-12) 1,000 mcg PO DAILY 11/16/15 07/27/16 History [Vitamin B-12] Dexlansoprazole [Dexilant] 60 mg PO DAILY 11/16/15 07/27/16 History Finasteride 5 mg PO DAILY 11/16/15 07/27/16 History predniSONE TAB [PredniSONE] 10 mg PO Q48H 11/16/15 07/27/16 History Albuterol Neb [Proventil Neb] 2.5 mg RESP TX Q6H PRN 07/27/16 07/27/16 History Fluticasone/Salmeterol 500-50 1 puff INH BID 07/27/16 07/27/16 History [Advair 500-50] guaiFENesin [Mucinex] 600 mg PO BID 07/27/16 07/27/16 History Allergies/Adverse Reactions: Allergies Allergy/AdvReac Type Severity Reaction Status Date / Time Hydromorphone [From Dilaudid] Allergy ANAPHYLAXIS Verified 01/09/16 03:13 levofloxacin [From Levaquin] AdvReac Joint Pain Verified 01/09/16 03:13 ROS unobtainable: due to endotracheal tube Medical,Surgical,& Family Hx - Medical History Neurology: No history of: Seizures HEENT: History of: Ear Problem (gets stopped up) Endocrine: Comment Only: Thyroid Disorder (was told levels were low today and had ultrasound) Rheumatology: History of;: Rheumatoid Arthritis Respiratory: History of: Pulmonary Hypertension, Respiratory Problems ( sarcodosis, pseudomonas in bronchial washing, chest tubes from collapsed silvia) Genitourinary: History of: Prostate Problems (enlarged prostate) Gastrointestinal: History of: GERD, GI Problems (barrets disease) Musculoskeletal: History of: Back/Neck Problems, Musculoskeletal Problems ( takes epidurals for chronic neck pain) Other: History of: Cancer (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), Miscellaneous Medical Problems (sarcoidosis) - Surgical History Cardiac Surgeries: Sugical HX of: Cardiac Catheterization Abdominal Surgeries: Surgical HX of: Colonoscopy, EGD - Family History Family History: Reports;: Family Cancer (sister had breast and brain, mom had ovarian), Family Diabetes (father), Family Heart Disease (father) Denies;: Family Anesthesia Reaction, Family Hematology, Family Hypertension, Family Psychiatric Problems, Family Stroke - Social History Smoking Status: Never smoker Frequency of Alcohol Use: None Type of Drug Use: None Marital Status: Lives With:: Spouse Functional capacity: independent ambulation Physical Examination Vital Signs Pulse Resp BP Pulse Ox 122 H 20 85/61 98 07/27/16 19:37 07/27/16 19:37 07/27/16 19:37 07/27/16 19:37 General: Present: Other (He appears chronically ill. He is thin) Neck: Present: Other (I did not move his neck he has a history of significant cervical spondylosis and RA) Cardiac: Present: Reg Rate and Rhythm, S1/S2 (I hear tricuspid regurgitation with no left-sided murmurs are audible) Lungs: Present: Scattered Rhonchi Neuro: Present: Other (Sedated) Abdomen: Present: Active Bowel Sounds Skin: Present: Other (No surgical scars on his abdomen or chest are appreciated) Extremities: Present: No Edema Result/EKG - Labs CBC & BMP: 07/30/16 03:34 07/30/16 03:34 Labs: Laboratory Results - last 24 hr 07/29/16 07/29/16 07/29/16 10:39 10:39 10:39 WBC 22.8 H RBC 4.22 Hgb 12.3 L Hct 35.1 L MCV 83.2 L MCH 29 MCHC 35.0 RDW 13.7 Plt Count 198 MPV 9.8 Neut % (Auto) 93.7 H Lymph % (Auto) 1.2 L [place] % (Auto) 4.0 Eos % (Auto) 0.0 Baso % (Auto) 0.0 Neut # (Auto) 21.4 H Lymph # (Auto) 0.3 L [place] # (Auto) 0.9 H Eos # (Auto) 0.0 Baso # (Auto) 0.0 Total Counted 100 Immature Gran % 1.1 Nucleated RBC % 0.0 Immature Gran # 0.26 Segmented Neutrophils 96 H Lymphocytes Monocytes 4 Nucleated RBCs # 0.00 Platelet Estimate Normal Polychromasia Hypochromasia Slight Microcytosis Slight Ovalocytes Slight Acanthocytes (Spur) Schistocytes Morphology Comment ABG pH ABG pCO2 ABG pO2 ABG HCO3 ABG Total CO2 ABG O2 Saturation ABG Base Excess FiO2 Sodium 132 L Potassium 3.8 Chloride 99 Carbon Dioxide 25 Anion Gap 11.8 BUN 32 H Creatinine 0.70 GFR Calculation 88 BUN/Creatinine Ratio 45.00 H Glucose 166 H Calculated Osmolality 274.5 Calcium 8.0 L Magnesium Total Bilirubin 0.40 Direct Bilirubin 0.10 Indirect Bilirubin 0.3 AST 21 ALT 15 L Alkaline Phosphatase 60 Total Creatine Kinase CK-MB (CK-2) CK and CKMB Interp Troponin I B-Natriuretic Peptide Total Protein 5.9 L Albumin 2.8 L Globulin Albumin/Globulin Ratio Amylase 41 Lipase 104.0 Urine Color Urine Appearance Urine pH Ur Specific [place] Urine Protein Urine Glucose (UA) Urine Ketones Urine Blood Urine Nitrate Urine Bilirubin Urine Urobilinogen Urine Leukocytes Urine RBC Urine WBC Ur Squamous Epith Cells Granular Casts Ur Culture Indicated? 07/29/16 07/29/16 07/29/16 16:27 19:59 19:59 WBC RBC Hgb Hct MCV MCH MCHC RDW Plt Count MPV Neut % (Auto) Lymph % (Auto) [place] % (Auto) Eos % (Auto) Baso % (Auto) Neut # (Auto) Lymph # (Auto) [place] # (Auto) Eos # (Auto) Baso # (Auto) Total Counted Immature Gran % Nucleated RBC % Immature Gran # Segmented Neutrophils Lymphocytes Monocytes Nucleated RBCs # Platelet Estimate Polychromasia Hypochromasia Microcytosis Ovalocytes Acanthocytes (Spur) Schistocytes Morphology Comment ABG pH ABG pCO2 ABG pO2 ABG HCO3 ABG Total CO2 ABG O2 Saturation ABG Base Excess FiO2 Sodium 130 L Potassium 4.6 Chloride 96 L Carbon Dioxide 22 Anion Gap 16.6 H BUN 36 H Creatinine 0.90 GFR Calculation 79 BUN/Creatinine Ratio 40.00 H Glucose 167 H Calculated Osmolality 271.8 L Calcium 7.8 L Magnesium 2.3 Total Bilirubin Direct Bilirubin Indirect Bilirubin AST ALT Alkaline Phosphatase Total Creatine Kinase 318 H CK-MB (CK-2) 6.8 H CK and CKMB Interp 2.1 Troponin I 0.305 H B-Natriuretic Peptide 194 H Total Protein Albumin Globulin Albumin/Globulin Ratio Amylase Lipase Urine Color Urine Appearance Urine pH Ur Specific [place] Urine Protein Urine Glucose (UA) Urine Ketones Urine Blood Urine Nitrate Urine Bilirubin Urine Urobilinogen Urine Leukocytes Urine RBC Urine WBC Ur Squamous Epith Cells Granular Casts Ur Culture Indicated? 07/29/16 07/29/16 07/29/16 20:10 21:07 21:30 WBC 25.0 H RBC 4.26 Hgb 12.4 L Hct 36.7 L MCV 86.2 L MCH 29 MCHC 33.8 RDW 13.7 Plt Count 247 D MPV 9.7 Neut % (Auto) 85.4 H Lymph % (Auto) 3.0 L [place] % (Auto) 8.2 Eos % (Auto) 0.0 Baso % (Auto) 0.1 Neut # (Auto) 21.3 H Lymph # (Auto) 0.8 L [place] # (Auto) 2.1 H Eos # (Auto) 0.0 Baso # (Auto) 0.0 Total Counted 100 Immature Gran % 3.3 Nucleated RBC % 0.0 Immature Gran # 0.82 Segmented Neutrophils 92 H Lymphocytes 1 L Monocytes 7 Nucleated RBCs # 0.00 Platelet Estimate Polychromasia Slight Hypochromasia Microcytosis Ovalocytes Slight Acanthocytes (Spur) 1+ Schistocytes Slight Morphology Comment ABG pH 7.315 L ABG pCO2 49.0 H ABG pO2 411.8 H ABG HCO3 24.4 ABG Total CO2 25.9 ABG O2 Saturation 99.6 ABG Base Excess -2.1 FiO2 100.00 Sodium Potassium Chloride Carbon Dioxide Anion Gap BUN Creatinine GFR Calculation BUN/Creatinine Ratio Glucose Calculated Osmolality Calcium Magnesium Total Bilirubin Direct Bilirubin Indirect Bilirubin AST ALT Alkaline Phosphatase Total Creatine Kinase CK-MB (CK-2) CK and CKMB Interp Troponin I B-Natriuretic Peptide Total Protein Albumin Globulin Albumin/Globulin Ratio Amylase Lipase Urine Color Yellow Urine Appearance Cloudy Urine pH 5.0 Ur Specific [place] 1.016 Urine Protein 100 Urine Glucose (UA) Negative Urine Ketones Negative Urine Blood Large Urine Nitrate Negative Urine Bilirubin Negative Urine Urobilinogen < 2.0 H Urine Leukocytes Negative Urine RBC 455 Urine WBC 7 Ur Squamous Epith Cells Occasional Granular Casts 41 Ur Culture Indicated? Results to follow 07/30/16 07/30/16 07/30/16 03:34 03:34 03:35 WBC 14.3 H D RBC 3.89 Hgb 11.1 L Hct 32.3 L MCV 83.0 L MCH 29 MCHC 34.4 RDW 13.9 Plt Count 174 D MPV 10.5 Neut % (Auto) 88.0 H Lymph % (Auto) 2.2 L [place] % (Auto) 8.8 Eos % (Auto) 0.0 Baso % (Auto) 0.1 Neut # (Auto) 12.6 H Lymph # (Auto) 0.3 L [place] # (Auto) 1.3 H Eos # (Auto) 0.0 Baso # (Auto) 0.0 Total Counted 100 Immature Gran % 0.9 Nucleated RBC % 0.0 Immature Gran # 0.13 Segmented Neutrophils 89 H Lymphocytes 4 L Monocytes 7 Nucleated RBCs # 0.00 Platelet Estimate Normal Polychromasia Hypochromasia Microcytosis Ovalocytes Acanthocytes (Spur) Schistocytes Morphology Comment ABG pH 7.467 H ABG pCO2 35.8 ABG pO2 212.0 H ABG HCO3 26.5 H ABG Total CO2 23.0 ABG O2 Saturation 99.7 ABG Base Excess 2.4 FiO2 Sodium 132 L Potassium 4.0 Chloride 95 L Carbon Dioxide 27 Anion Gap 14.0 BUN 31 H Creatinine 0.70 GFR Calculation 88 BUN/Creatinine Ratio 44.00 H Glucose 129 H Calculated Osmolality 272.5 L Calcium 8.1 L Magnesium Total Bilirubin 0.80 Direct Bilirubin Indirect Bilirubin AST 105 H ALT 141 H Alkaline Phosphatase 77 Total Creatine Kinase CK-MB (CK-2) CK and CKMB Interp Troponin I B-Natriuretic Peptide Total Protein 5.2 L Albumin 2.5 L Globulin 2.7 Albumin/Globulin Ratio 0.9 L Amylase Lipase Urine Color Urine Appearance Urine pH Ur Specific [place] Urine Protein Urine Glucose (UA) Urine Ketones Urine Blood Urine Nitrate Urine Bilirubin Urine Urobilinogen Urine Leukocytes Urine RBC Urine WBC Ur Squamous Epith Cells Granular Casts Ur Culture Indicated? - EKG EKG results: interpreted by me (Pulmonary disease pattern as described in HPI)
--- NOTE | 2016-07-30 09:26 | XRay Report ---
Exam: XR chest 1V portable Indication: Intubated, respiratory failure Comparison study: 07/29/2016 radiograph Findings: Endotracheal tube is in similar positions. Of note, the retention balloon on the endotracheal tube appears potentially overinflated measuring up to 3.7 cm transaxial dimension, which is similar to prior. Esophagogastric tube is noted in place which travels below the [id number]. Cardiac silhouette appears somewhat comminuted and appears stable from prior. Multiple calcified hilar/basal lymph nodes appear unchanged. Extensive fibrotic/interstitial scarring changes throughout both lungs appear unchanged. Slight improved aeration is noted within the upper lungs bilaterally. There is no pneumothorax. Basilar opacities and blunting of costophrenic angles is also similar to prior. Impression: Overall, slight improved aeration with partial clearing of interstitial opacities in the upper lobes. Endotracheal tube retention balloon may be overinflated. Consider clinical assessment. PROCEDURE INTERPRETED AT [facility] DEPARTMENT OF RADIOLOGY Final Report Signed by: Jared Hyatt
--- NOTE | 2016-07-30 14:25 | Pulmonology Progress Note ---
Pulmonary - PN: Subj Interval history: This is a 71-year-old white male patient who was seen along with his . I am seeing this patient for . This patient has sarcoidosis. He probably has pneumonia. He said thick tenacious sputum which is been hard to mobilize. He said some desaturation. In the past she was followed in the clinic but now is followed at [facility]. Dr. Jose Manuel Farnsworth will pick him up next week. This patient complains of pain in his lower anterior right chest. This is reproduced with pressure over the costochondral junctions in this area. Will treat this with topical Flector patches. On his old chest x-ray he has fluid in this area so it is possible this more to the pain in the musculoskeletal component. The patient is having trouble mobilizing his sputum. He is already on Pulmozyme and he is getting duo nebs 4 times daily. I have increased this to 4 times daily and as needed and his is asked me to add Acapella which she calls "duck call" Admit white blood cell count was 29,000. There are no positive cultures reported. Labs been reviewed. Medicines been reviewed 07/30/2016. After saw the patient on 07/29/2016 a few hours later he experienced some shortness of breath he was given Lasix. He was sent downstairs for Doppler venograms of lower extremities when he came back there was a delay getting his oxygen on. His said he got up and went to the bathroom and then fell back on the bed and was not breathing any longer. He was resuscitated. He required intubation mechanical ventilation. His chest x-ray shows the heart to be top normal in size. He has dense scarring in the hilar areas did radiate superiorly at the involve both upper lungs. There is a cavity with no air-fluid level in the left upper lung and in the right upper lung. There are increased interstitial markings with scarring and retraction of mid lung saab. There is dense pleural scarring over the right lower lung field and this extends across the diaphragm. There is diaphragmatic scarring over the left diaphragm and there appeared to be traction bullae in the left lower lung. This all has the appearance of dense sarcoidosis. Endotracheal tube is in good position. ABGs on mechanical ventilation showed pH 7.467, PCO2 35.8, PO2 of 212 and a bicarb of 26.5. Sodium is 132, potassium is 4.0, creatinine is 0.7 with a BUN of 31. There is a mild level elevation of transaminases. Total protein and albumin albumin are low at 5.2 and 2.5 respectively. White count is dropped from 29,000 14,300 with 88 segs. H&H is 11.1/32.3 and platelet count is 174,000. There are no cultures reported. Patient is stable on mechanical ventilation will begin weaning protocol. This patient followed by Dr. Jose Manuel Farnsworth in the past. Several years ago he was began to be followed at [facility]. His says she recently made an appointment for him to see Dr. Farnsworth back in follow-up. was present today and I discussed the case with her. Doppler venograms of the lower extremities are negative for deep venous thrombophlebitis. Natruretic peptide is 194 Physical exam. Vital signs. See below. Psychiatric. Sedated Face. Symmetrical. Lips and tongue are normal Neck. Symmetrical. No meningismus Lymphatics. No submandibular cervical supraclavicular or epitrochlear adenopathy Chest. Loose large airway congestion. Heart. No gallop Abdomen. Positive bowel sounds Lower extremities. No edema The remainder the physical exam is negative. Plan. 07/29/2016. 1. Continue present regimen 2. Add Flector patches 3. Add Acapella 07/30/2016. 1. Dr. Jose Manuel Farnsworth will metal pickling equipment operator the case in the morning 2. Weaning protocol 3. Physical therapy protocol 4. Continue present medicines including steroids. Consider a larger dose of steroids. 5. Deep venous thrombophlebitis prevention prophylaxis. 6. Proton pump inhibitors as per protocol Exam (Progress Note) - Constitutional Vitals: Period Temp Pulse Resp BP Sys/De Paz Pulse Ox Last 24 Hr 97.7 F-98.2 F 84-127 16-32 92-142/57-94 88-100 Results - Labs CBC & BMP: 07/30/16 03:34 07/30/16 03:34
[2016-07-30] MEDS: cefTRIAXone 1,000 MG in SODIUM CHLORIDE 0.9% 100 ML IV SCH (21:03)
[2016-07-31] MEDS: ALBUTEROL/IPRATROPIUM 3 ML NEB RESP TX SCH ×4 (00:47→19:16)
[2016-07-31] MEDS: PROPOFOL 1,000 MG/100 ML BOTTLE IV SCH ×4 (02:47→20:36)
[2016-07-31 03:33] LABS: Allen Test Positive; Pt O2 Delivery Device Ventilator
[2016-07-31 03:35] LABS: ABG Base Excess 6.7 MMOL/L (-2.5-2.5); ABG HCO3 30.7 MMOL/L (20-26); ABG PCO2 41.7 MM HG (35-48); ABG PH 7.485 (7.35-7.45); ABG PO2 232.5 MM HG (80-95)
[2016-07-31] MEDS: guaiFENesin 200 MG/10 ML UDCUP NG SCH ×4 (05:01→21:53)
[2016-07-31 05:20] LABS: Hematocrit 36.5 VOL% (42.0-52.0); Hemoglobin 12.6 GM/DL (14.0-18.0); Immature Granulocytes % 0.8 %; Immature Granulocytes Absolute 0.06 #; Lymphocytes # 0.3 10*3/uL (1.4-4.0); Lymphocytes % 3.4 % (21.2-54.2); Mean Corpuscular HGB Conc 34.5 GM/DL (32-36); Mean Corpuscular Hemoglobin 29 PG (27-34); Mean Corpuscular Volume 83.3 FL (87-102); Mean Platelet Volume 9.8 FL (9.6-12.0); Monocytes # 0.6 10*3/uL (0.11-0.8); Monocytes % 7.1 % (1.7-12.7); Neutrophils % 88.7 % (38.7-73.9); Platelet Count 163 T/CUMM (130-400); Red Blood Count 4.38 MC/CUMM (3.8-5.5); Red Cell Distribution Width 13.6 % (9.3-17.3); White Blood Count 7.9 T/CUMM (4-12)
[2016-07-31 05:54] LABS: Band Neutrophils 1 % (0-10); Lymphocytes 1 % (20-55); Segmented Neutrophils 96 % (50-85); Total Cells Counted 100
[2016-07-31 05:58] LABS: Hypochromasia 1+
[2016-07-31 05:59] LABS: Microcytosis Slight
[2016-07-31 06:01] LABS: Calcium 8.2 MG/DL (8.5-10.1); Osmolality,Calculated 280.7 MOS/KG (273-304)
[2016-07-31] MEDS: PIPERACILLIN/TAZOBACTAM 3,375 MG in SODIUM CHLORIDE 0.9% 100 ML IV SCH ×3 (06:11→22:49)
[2016-07-31] MEDS: methylPREDNISolone SOD SUC 125 MG/2 ML VIAL IV SCH ×2 (06:11→18:30)
--- NOTE | 2016-07-31 06:35 | ECHO Report ---
Blake Randhawa Exam Date: 07/30/2016 14:08 Referring Physician: Technologist: Mabel Huffman RDCS Age: 71 Ht (in): 66 Wt (lb): 131 Gender: M Exam Location: [facility] Echo Indications: Acute and chronic respiratory failure, unspecified whether with hypoxia or hypercapnia, Primary pulmonary hypertension, Tachycardia, unspecified, Sarcoidosis BP: 122 / 77 HR: 85 Rhythm: Sinus Technical Quality: IMPRESSIONS Left ventricular ejection fraction is estimated at 55 %. There is grade I diastolic dysfunction. Normal left ventricular wall thickness. Tricuspid regurgitation velocities suggest a RVSP of 51 mmHg plus the right atrial pressure. MEASUREMENTS (Male / Female) Normal Values 2D ECHO LV Diastolic Diameter PLAX 2.8 cm 4.2 - 5.9 / 3.9 - 5.3 cm LV Systolic Diameter PLAX 2.2 cm LV Fractional Shortening PLAX 22.1 % IVS Diastolic Thickness 1.0 cm 0.6 - 1.0 / 0.6 - 0.9 cm LVPW Diastolic Thickness 1.0 cm 0.6 - 1.0 / 0.6 - 0.9 cm RV Internal Dim ED PLAX 2.1 cm Aortic Root Diameter 2.8 cm LA Systolic Diameter LX 1.9 cm 3.0 - 4.0 / 2.7 - 3.8 cm DOPPLER TR Peak Velocity 357.0 cm/s TR Peak Gradient 51.0 mmHg FINDINGS Left Ventricle Normal left ventricular cavity size. Normal left ventricular wall thickness. Left ventricular ejection fraction is estimated at 55 %. There is grade I diastolic dysfunction. Right Ventricle Mildly increased right ventricular size. Right Atrium The right atrium is mildly enlarged. Left Atrium The left atrium is normal in size. Mitral Valve Mildly thickened mitral valve. No mitral valve stenosis. No mitral valve regurgitation. Aortic Valve Mild aortic valve sclerosis without stenosis. No aortic valve regurgitation. Tricuspid Valve Morphologically normal tricuspid valve. Trace to mild tricuspid valve regurgitation. Tricuspid regurgitation velocities suggest a RVSP of 51 mmHg plus the right atrial pressure. Pulmonic Valve Morphologically normal pulmonic valve without significant stenosis. There is no pulmonic regurgitation. Pericardium Normal pericardium without effusion. Aorta Normal ascending aorta dimension. Yolande Freeman (Electronically Signed) Final Date: 31 July 2016 06:34
[2016-07-31] MEDS: DORNASE ALFA 2.5 MG/2.5 ML VIAL RESP TX SCH ×2 (07:16→19:21)
--- NOTE | 2016-07-31 07:48 | Pulmonology Progress Note ---
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 He also has secondary pulmonary hypertension. He has been on low-dose prednisone. Last week he had chest congestion and coughing and came in with some respiratory distress. Over the weekend he had to be intubated. He did have a very elevated white count and is being treated for pneumonia. He had more distress and had to be intubated. He is now stable on the ventilator. He is responding okay and his oxygenation has improved. His white count has come down nicely and there is nothing so far on culture. He has not been doing any weaning trials so far. Exam (Progress Note) - Constitutional Vitals: Period Temp Pulse Resp BP Sys/De Paz Pulse Ox Last 24 Hr 97.2 F-98 F 75-98 15-22 104-159/64-98 93-100 General appearance: no acute distress (The patient was comfortable on the ventilator.), under weight - Head Head exam: Present: normal inspection, normocephalic - Eye Eye exam: Present: EOMI. Absent: scleral icterus Pupils: Present: JUAN - ENT ENT exam: Present: other (ET tube is in good position) - Neck Neck exam: Present: normal inspection. Absent: lymphadenopathy, thyromegaly - Respiratory Respiratory exam: Present: decreased breath sounds, rhonchi (The patient has coarse breath sounds and minimal rhonchi.) - Cardiovascular Cardiovascular exam: Present: regular rate and rhythm. Absent: gallop, systolic murmur - GI/Abdominal GI/Abdominal exam: Present: normal bowel sounds, soft. Absent: organomegaly, tenderness - Extremities Exam Extremities exam: Absent: calf tenderness, edema - Neurological Exam Neurological exam: Present: other (The patient is sedated now but will respond okay.) - Skin Skin exam: Present: warm, dry Results - Labs CBC & BMP: 07/31/16 05:13 07/31/16 05:13 Labs: His PO2 is 232 with a PCO2 of 41 and pH of 7.48 - Diagnostic Findings Procedure: Chest x-ray: image reviewed by me, report reviewed by me (Chest x- ray shows extensive bilateral upper lobe scarring.) Assessment and Plan (1) Pneumonia Status: Acute Assessment and plan: The patient came in with some chest congestion and elevated white count is being treated for pneumonia. Clinically he is doing a little better. Current Visit: Yes (2) Sarcoidosis Status: Chronic Assessment and plan: Patient has a long history of sarcoidosis with pulmonary fibrosis. Current Visit: Yes (3) Pulmonary hypertension Status: Chronic Assessment and plan: The patient has secondary pulmonary hypertension related to his lung fibrosis. Current Visit: Yes (4) Acute and chronic respiratory failure Status: Acute Assessment and plan: The patient developed acute respiratory distress on top of his chronic lung problems. He was intubated over the weekend. His oxygenation is much better will try to wean quickly. Current Visit: Yes
--- NOTE | 2016-07-31 08:10 | XRay Report ---
History: Patient on ventilator Date: 07/31/2016 Study: Chest x-ray AP portable Comparison exam: 07/30/2016 The endotracheal and nasogastric tubes remain in place. The cardiomediastinal silhouette is unchanged. There is patchy and strandy parenchymal disease throughout both lungs, more so in the upper lung zones. There is pleural disease in the lower hemithoraces as before. Changes of bullous emphysema are present as before. Osseous structures are unchanged. Impression: No gross change from the previous study PROCEDURE INTERPRETED AT [facility] DEPARTMENT OF RADIOLOGY Final Report Signed by: Dr. Rissa Rubio
[2016-07-31] MEDS: NYSTATIN 500,000 UNIT/5 ML UDCUP SWISH/SWAL SCH ×4 (08:29→20:36)
[2016-07-31] MEDS: POLYETHYLENE GLYCOL POWDER 17 GM PACK PO SCH (08:29)
[2016-07-31] MEDS: FINASTERIDE 5 MG TABLET PO SCH (08:30)
[2016-07-31] MEDS: ENOXAPARIN 40 MG/0.4 ML SYRINGE SUBCUT SCH (08:30)
[2016-07-31] MEDS: DOCUSATE SODIUM 100 MG CAPSULE PO SCH ×2 (08:31→20:36)
[2016-07-31] MEDS: FLUTICASONE/SALMETEROL 500-50 DISKUS 14 DOSE INH SCH ×2 (08:31→20:35)
[2016-07-31] MEDS: PANTOPRAZOLE 40 MG TABLET PO SCH (08:31)
[2016-07-31] MEDS: DESITIN 4OZ/NYSTATIN 15 GRAM MIXTURE PASTE TOP SCH ×2 (08:31→20:37)
[2016-07-31] MEDS: DICLOFENAC 1.3% PATCH 5/PACK TRANSDERM SCH ×2 (08:32→21:17)
[2016-07-31] MEDS: ACETAMINOPHEN 500 MG TABLET PO SCH ×4 (08:45→20:38)
--- NOTE | 2016-07-31 09:54 | Cardiology Progress Note ---
Assessment and Plan (1) Acute and chronic respiratory failure Status: Acute Assessment and plan: See plan of care listed below. Current Visit: Yes (2) Pneumonia Status: Acute Assessment and plan: See plan of care listed below. Current Visit: Yes (3) Sinus tachycardia Status: Resolved Assessment and plan: See plan of care listed below. Current Visit: Yes (4) Pulmonary hypertension Status: Chronic Assessment and plan: See plan of care listed below. Current Visit: Yes (5) Sarcoidosis Status: Chronic Assessment and plan: See plan of care listed below. Current Visit: Yes (6) Hypertension Status: Acute Assessment and plan: See plan of care listed below. Current Visit: Yes Cardiology - PN: Subj Interval history: Staffing Account Manager: Dr. Freeman (new) SUMMARY: Mr. Randhawa is a 71 year old male with spondylosis and sarcoid who is admitted with a long process initially diagnosis pneumonia who developed respiratory distress on the floor and was intubated received a dose of epinephrine had sinus tachycardia post procedure. I reviewed his ECGs which was without acute process. He has a pulmonary disease type pattern with incomplete right bundle branch block and atrial abnormality. Cardiology was consulted to see patient for sinus tachycardia. Echocardiogram was performed which revealed left ventricular ejection fraction of 55%. Grade 1 diastolic dysfunction. Normal left ventricular wall thickness. Tricuspid regurgitation velocities suggest a RVSP of 51 mmHg. Patient remains sedated and ventilated in the cardiac care unit. Patient has never seen a setter off previously prior to this admission. July UPDATE - Patient was seen and examined in the cardiac care unit. Currently intubated and sedated. Currently, patient is in sinus rhythm with heart rates in the 80s and 90s. No overt arrhythmias or ectopy noted. Blood pressure is suboptimally controlled we will adjust his medications today. Labs have been reviewed. Assessment/plan: 1. SINUS TACHYCARDIA -resolved. Patient is currently in normal sinus rhythm heart rates in the 80s and 90s. Have added a beta-neli today as patient's blood pressure is suboptimally controlled. 2. ACUTE RESPIRATORY FAILURE - Management per pulmonary. Wean as tolerated. 3. PULMONARY HYPERTENSION - Continue current plan of care. 4. SARCOIDOSIS - Management per attending. 5. PNEUMONIA - Continue current plan of care with IV antibiotics and steroids. Management per attending. 6. HYPERTENSION - Blood pressure is suboptimally controlled. Will add beta- neli at this time and further adjust as needed throughout his hospital stay. Further plan and addendum to follow per Dr. Lea. Exam (Progress Note) - Constitutional Vitals: Period Temp Pulse Resp BP Sys/De Paz Pulse Ox Last 24 Hr 97.2 F-98 F 75-98 12-22 104-159/64-98 93-100 Exam: General: Appears comfortable on the ventilator. Sedated. HEENT: PERRL, normocephalic, atraumatic. Mucous membranes moist. No jaundice noted. Conjunctiva moist and clear, sclerae anicteric Neck: No JVD/HJR, no thyromegaly or lymphadenopathy noted. Cardiac: Regular rate and rhythm. Murmur auscultated consistent with tricuspid regurgitation. Lungs: Scattered rhonchi auscultated. Currently intubated on the ventilator. Abdomen: Soft, bowel sounds normoactive. Nontender and nondistended. Extremities: No clubbing, cyanosis noted. No edema noted. Upper extremity pulses 2+. Lower extremity pulses 2+. Capillary refill less than 3 seconds. Skin: No unusual lesions or rashes. No skin breakdown appreciated. Neuro: Unable to fully assess as patient is sedated on the ventilator. Result/EKG - Labs CBC & BMP: 07/31/16 05:13 07/31/16 05:13 Lab Results: I have reviewed the past 24 hour labs Labs: Laboratory Results - last 24 hr 07/31/16 07/31/16 07/31/16 03:13 05:13 05:13 WBC 7.9 D RBC 4.38 Hgb 12.6 L Hct 36.5 L MCV 83.3 L MCH 29 MCHC 34.5 RDW 13.6 Plt Count 163 MPV 9.8 Neut % (Auto) 88.7 H Lymph % (Auto) 3.4 L [place] % (Auto) 7.1 Eos % (Auto) 0.0 Baso % (Auto) 0.0 Neut # (Auto) 7.0 Lymph # (Auto) 0.3 L [place] # (Auto) 0.6 Eos # (Auto) 0.0 Baso # (Auto) 0.0 Total Counted 100 Immature Gran % 0.8 Nucleated RBC % 0.0 Immature Gran # 0.06 Segmented Neutrophils 96 H Band Neutrophils 1 Lymphocytes 1 L Monocytes 2 Nucleated RBCs # 0.00 Hypochromasia 1+ Microcytosis Slight Morphology Comment ABG pH 7.485 H ABG pCO2 41.7 ABG pO2 232.5 H ABG HCO3 30.7 H ABG Total CO2 32.0 H ABG O2 Saturation 99.0 ABG Base Excess 6.7 H FiO2 60.00 Sodium 138 Potassium 4.0 Chloride 101 Carbon Dioxide 29 Anion Gap 12.0 BUN 22 H Creatinine 0.60 L GFR Calculation 95 BUN/Creatinine Ratio 36.00 H Glucose 148 H Calculated Osmolality 280.7 Calcium 8.2 L
[2016-07-31] MEDS: CARVEDILOL 3.125 MG TABLET PO SCH ×2 (10:10→20:36)
--- NOTE | 2016-07-31 20:44 | Internal Med Progress Note ---
Assessment and Plan (1) Acute and chronic respiratory failure Status: Acute Current Visit: Yes Qualifiers: Respiratory failure complication: hypoxia Qualified Code(s): J96.21 - Acute and chronic respiratory failure with hypoxia (2) Pulmonary hypertension Status: Chronic Current Visit: Yes (3) Sarcoidosis Status: Chronic Current Visit: Yes Internal Medicine - PN: Subj Interval history: This is a 71 year old male with history of sarcoid lung disease, pulmonary fibrosis, severe pulmonary hypertension, home oxygen for hypoxia, hypotension, who presented to ER with acute coughing/bronchospasm and mucus plug. He has since gone into respiratory failure and had to be intubated. He had CPAP trial today for three hours. Likely will be difficult to wean him off ventilator. His lung disease has been treated in [place] over last few years. Exam (Progress Note) - Constitutional Vitals: Period Temp Pulse Resp BP Sys/De Paz Pulse Ox Last 24 Hr 97 F-98 F 68-94 10-21 101-160/64-93 93-100 General appearance: other (intubated and on light sedation) - Head Head exam: Present: normocephalic - Respiratory Respiratory exam: Present: clear to auscultation bilaterally - Cardiovascular Cardiovascular exam: Present: regular rate and rhythm - GI/Abdominal GI/Abdominal exam: Present: soft - Extremities Exam Extremities exam: Absent: edema - Skin Skin exam: Present: warm, dry Results - Labs CBC & BMP: 07/31/16 05:13 07/31/16 05:13 - EKG EKG shows: sinus rhythm - Diagnostic Findings Procedure: Chest x-ray: report reviewed by me
[2016-07-31] MEDS: cefTRIAXone 1,000 MG in SODIUM CHLORIDE 0.9% 100 ML IV SCH (21:53)
[2016-07-31] MEDS: INSULIN REGULAR 100 UNIT/ML SUBCUT SCH (23:47)
[2016-08-01] MEDS: ALBUTEROL/IPRATROPIUM 3 ML NEB RESP TX SCH ×5 (00:27→22:57)
[2016-08-01] MEDS: PROPOFOL 1,000 MG/100 ML BOTTLE IV SCH ×2 (01:58→19:23)
[2016-08-01 03:48] LABS: ABG Base Excess 6.9 MMOL/L (-2.5-2.5); ABG HCO3 30.7 MMOL/L (20-26); ABG Oxygen Saturation 98.6 % (95-100); ABG PCO2 40.5 MM HG (35-48); ABG PH 7.497 (7.35-7.45); ABG PO2 146.7 MM HG (80-95); ABG TCO2 31.9 MMOL/L (23-27); Allen Test Positive; Pt O2 Delivery Device Ventilator
[2016-08-01] MEDS: guaiFENesin 200 MG/10 ML UDCUP NG SCH ×4 (04:41→22:30)
[2016-08-01 05:12] LABS: Basophils % 0.1 % (0.0-0.8); Hematocrit 36.5 VOL% (42.0-52.0); Hemoglobin 12.6 GM/DL (14.0-18.0); Immature Granulocytes % 0.4 %; Immature Granulocytes Absolute 0.04 #; Lymphocytes # 0.3 10*3/uL (1.4-4.0); Lymphocytes % 2.6 % (21.2-54.2); Mean Corpuscular HGB Conc 34.5 GM/DL (32-36); Mean Corpuscular Hemoglobin 29 PG (27-34); Mean Corpuscular Volume 84.1 FL (87-102); Mean Platelet Volume 10.2 FL (9.6-12.0); Monocytes # 0.8 10*3/uL (0.11-0.8); Monocytes % 7.3 % (1.7-12.7); Neutrophils % 89.6 % (38.7-73.9); Platelet Count 188 T/CUMM (130-400); Red Blood Count 4.34 MC/CUMM (3.8-5.5); Red Cell Distribution Width 13.5 % (9.3-17.3); White Blood Count 11.2 T/CUMM (4-12)
[2016-08-01 05:39] LABS: Lymphocytes 2 % (20-55); Segmented Neutrophils 87 % (50-85); Total Cells Counted 100
[2016-08-01 05:40] LABS: Hypochromasia Slight; Microcytosis Slight; Platelet Estimate Adequate
[2016-08-01 05:48] LABS: Calcium 8.4 MG/DL (8.5-10.1); Magnesium 2.4 MG/DL (1.8-2.4); Osmolality,Calculated 287.3 MOS/KG (273-304); Potassium 4.1 MMOL/L (3.5-5.1)
[2016-08-01 05:51] LABS: Phosphorous 2.4 MG/DL (2.5-4.9); Prealbumin 22.7 MG/DL (20-40)
[2016-08-01] MEDS: INSULIN REGULAR 100 UNIT/ML SUBCUT SCH ×3 (06:15→18:29)
[2016-08-01] MEDS: methylPREDNISolone SOD SUC 125 MG/2 ML VIAL IV SCH ×2 (06:15→18:35)
[2016-08-01] MEDS: PIPERACILLIN/TAZOBACTAM 3,375 MG in SODIUM CHLORIDE 0.9% 100 ML IV SCH ×3 (06:16→22:28)
[2016-08-01] MEDS: ENOXAPARIN 40 MG/0.4 ML SYRINGE SUBCUT SCH (06:30)
--- NOTE | 2016-08-01 07:29 | XRay Report ---
XR chest 1V portable Indication: Ventilator Comparison: Chest x-ray dated July 31, 2016 Technique: Frontal views of the chest Findings: Endotracheal tube approximately 1.3 cm above the fannie. Cardiomediastinal silhouette appears grossly unchanged. Bilateral pleural-parenchymal abnormality appears similar to prior examination with opacification predominantly within the bilateral upper lobes and bilateral pleural scarlike opacities. Visualized osseous and surrounding soft tissue structures appear grossly unchanged. IMPRESSION: No significant interval change. Consider CT chest for further evaluation of significant pleural-parenchymal abnormality. PROCEDURE INTERPRETED AT [facility] DEPARTMENT OF RADIOLOGY Final Report Signed by: Dr Naren Hidalgo
--- NOTE | 2016-08-01 07:47 | Pulmonology Progress Note ---
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 He also has secondary pulmonary hypertension. He has been on low-dose prednisone. Last week he had chest congestion and coughing and came in with some respiratory distress. Over the weekend he had to be intubated. He did have a very elevated white count and is being treated for pneumonia. He had more distress and had to be intubated. He is now stable on the ventilator. He is responding okay and his oxygenation has improved. His white count has come down nicely and there is nothing so far on culture. He had a good day yesterday and did CPAP fairly well. His chest x-ray looks better and his oxygenation has improved. We will try to get him off the ventilator fairly quickly. Exam (Progress Note) - Constitutional Vitals: Period Temp Pulse Resp BP Sys/De Paz Pulse Ox Last 24 Hr 97 F-97.6 F 68-91 10-22 101-160/64-93 94-98 Exam: General appearance: no acute distress (The patient is responsive and looks comfortable.) - Head Head exam: Present: normal inspection, normocephalic - Eye Eye exam: Present: EOMI. Absent: scleral icterus Pupils: Present: JUAN - ENT ENT exam: Present: other (ET tube is in good position) - Neck Neck exam: Present: normal inspection. Absent: lymphadenopathy, thyromegaly - Respiratory Respiratory exam: Present: He has fair breath sounds bilaterally although there are little coarse. He has some minimal rhonchi. - Cardiovascular Cardiovascular exam: Present: regular rate and rhythm. Absent: gallop, systolic murmur - GI/Abdominal GI/Abdominal exam: Present: normal bowel sounds, soft. Absent: organomegaly, tenderness - Extremities Exam Extremities exam: Absent: calf tenderness, edema - Neurological Exam Neurological exam: Present: other (The patient is sedated now but will respond okay.) - Skin Skin exam: Present: warm, dry Results - Labs CBC & BMP: 08/01/16 04:36 08/01/16 04:36 Labs: The PO2 is 146 with a PCO2 of 40 and a pH of 7.49 - Diagnostic Findings Procedure: Chest x-ray: image reviewed by me, report reviewed by me (Chest x- ray shows bilateral upper lobe scarring. The infiltrates are better however) Assessment and Plan (1) Pneumonia Status: Acute Assessment and plan: The patient came in with some chest congestion and elevated white count is being treated for pneumonia. Clinically he is doing a little better. His chest x-ray looks much better than last week. His oxygenation has improved. Nothing is growing on culture so far. Current Visit: Yes (2) Sarcoidosis Status: Chronic Assessment and plan: Patient has a long history of sarcoidosis with pulmonary fibrosis. He is stable on steroids and antibiotics. Current Visit: Yes (3) Pulmonary hypertension Status: Chronic Assessment and plan: The patient has secondary pulmonary hypertension related to his lung fibrosis. Current Visit: Yes (4) Acute and chronic respiratory failure Status: Acute Assessment and plan: The patient developed acute respiratory distress on top of his chronic lung problems. He was intubated over the weekend. His oxygenation is much better and his chest x-ray looks better. We will try to extubate him today. Current Visit: Yes Qualifiers: Respiratory failure complication: hypoxia Qualified Code(s): J96.21 - Acute and chronic respiratory failure with hypoxia
--- NOTE | 2016-08-01 08:11 | Cardiology Progress Note ---
Addendum entered and electronically signed by Analia Hall NP 08/01/16 17:28 : After discussing with Dr. Lea, we will change patient's beta-neli from Coreg to atenolol as patient had minimal wheezing noted on exam. Original Note: Assessment and Plan (1) Acute and chronic respiratory failure Status: Acute Assessment and plan: See plan of care listed below. Current Visit: Yes Qualifiers: Respiratory failure complication: hypoxia Qualified Code(s): J96.21 - Acute and chronic respiratory failure with hypoxia (2) Pneumonia Status: Acute Assessment and plan: See plan of care listed below. Current Visit: Yes (3) Sinus tachycardia Status: Resolved Assessment and plan: See plan of care listed below. Current Visit: Yes (4) Pulmonary hypertension Status: Chronic Assessment and plan: See plan of care listed below. Current Visit: Yes (5) Sarcoidosis Status: Chronic Assessment and plan: See plan of care listed below. Current Visit: Yes (6) Hypertension Status: Acute Assessment and plan: See plan of care listed below. Current Visit: Yes Cardiology - PN: Subj Interval history: Unit Aide: Zamzam to cardiology Dr. Freeman (new) SUMMARY: Mr. Randhawa is a 71 year old male with spondylosis and sarcoid who is admitted with a long process initially diagnosis pneumonia who developed respiratory distress on the floor and was intubated received a dose of epinephrine had sinus tachycardia post procedure. I reviewed his ECGs which was without acute process. He has a pulmonary disease type pattern with incomplete right bundle branch block and atrial abnormality. Cardiology was consulted to see patient for sinus tachycardia. Echocardiogram was performed which revealed left ventricular ejection fraction of 55%. Grade 1 diastolic dysfunction. Normal left ventricular wall thickness. Tricuspid regurgitation velocities suggest a RVSP of 51 mmHg. Patient remains sedated and ventilated in the cardiac care unit. Patient has never seen a airport driver previously prior to this admission. July UPDATE - Patient was seen and examined in the cardiac care unit. Currently intubated and sedated. Nurse is at bedside and she reports that patient will wake up appropriately when sedation is held and is able to follow all commands. Currently, patient is in sinus rhythm with heart rates in the 70's and 80's. No overt arrhythmias or ectopy noted. Blood pressure is better controlled today after initiation of beta-neli yesterday. Labs have been reviewed. At this point, patient is stable from a cardiac standpoint. We will continue current plan of care. Assessment/plan: 1. SINUS TACHYCARDIA - Resolved. Patient is currently in normal sinus rhythm heart rates in the 70's and 80's. 2. ACUTE RESPIRATORY FAILURE - Management per pulmonary. Wean as tolerated. 3. PULMONARY HYPERTENSION - Continue current plan of care. 4. SARCOIDOSIS - Management per attending. 5. PNEUMONIA - Continue current plan of care with IV antibiotics and steroids. Management per attending. 6. HYPERTENSION - Blood pressure is better controlled today after initiation of beta-neli yesterday. Will continue current plan of care at this point and further adjust as needed throughout his hospital stay. Further plan and addendum to follow per Dr. Lea. Exam (Progress Note) - Constitutional Vitals: Period Temp Pulse Resp BP Sys/De Paz Pulse Ox Last 24 Hr 97 F-97.6 F 68-89 10-22 101-160/64-93 96-98 Exam: General: Appears comfortable on the ventilator. Sedated. HEENT: PERRL, normocephalic, atraumatic. Mucous membranes moist. No jaundice noted. Conjunctiva moist and clear, sclerae anicteric Neck: No JVD/HJR, no thyromegaly or lymphadenopathy noted. Cardiac: Regular rate and rhythm. Murmur auscultated consistent with tricuspid regurgitation. Lungs: Breath sounds better today. Only minimal rhonchi heard today. Currently intubated on the ventilator. Abdomen: Soft, bowel sounds normoactive. Nontender and nondistended. Extremities: No clubbing, cyanosis noted. No edema noted. Upper extremity pulses 2+. Lower extremity pulses 2+. Capillary refill less than 3 seconds. Skin: No unusual lesions or rashes. No skin breakdown appreciated. Neuro: Unable to fully assess as patient is sedated on the ventilator. Result/EKG - Labs CBC & BMP: 08/01/16 04:36 08/01/16 04:36 Lab Results: I have reviewed the past 24 hour labs Labs: Laboratory Results - last 24 hr 07/31/16 07/31/16 07/31/16 11:24 17:43 23:39 WBC RBC Hgb Hct MCV MCH MCHC RDW Plt Count MPV Neut % (Auto) Lymph % (Auto) [place] % (Auto) Eos % (Auto) Baso % (Auto) Neut # (Auto) Lymph # (Auto) [place] # (Auto) Eos # (Auto) Baso # (Auto) Total Counted Immature Gran % Nucleated RBC % Immature Gran # Segmented Neutrophils Lymphocytes Monocytes Nucleated RBCs # Platelet Estimate Hypochromasia Microcytosis ABG pH ABG pCO2 ABG pO2 ABG HCO3 ABG Total CO2 ABG O2 Saturation ABG Base Excess FiO2 Sodium Potassium Chloride Carbon Dioxide Anion Gap BUN Creatinine GFR Calculation BUN/Creatinine Ratio Glucose POC Glucose 142 H 166 H 162 H Calculated Osmolality Calcium Phosphorus Magnesium Prealbumin 08/01/16 08/01/16 08/01/16 03:40 04:36 04:36 WBC 11.2 D RBC 4.34 Hgb 12.6 L Hct 36.5 L MCV 84.1 L MCH 29 MCHC 34.5 RDW 13.5 Plt Count 188 MPV 10.2 Neut % (Auto) 89.6 H Lymph % (Auto) 2.6 L [place] % (Auto) 7.3 Eos % (Auto) 0.0 Baso % (Auto) 0.1 Neut # (Auto) 10.0 H Lymph # (Auto) 0.3 L [place] # (Auto) 0.8 Eos # (Auto) 0.0 Baso # (Auto) 0.0 Total Counted 100 Immature Gran % 0.4 Nucleated RBC % 0.0 Immature Gran # 0.04 Segmented Neutrophils 87 H Lymphocytes 2 L Monocytes 11 Nucleated RBCs # 0.00 Platelet Estimate Adequate Hypochromasia Slight Microcytosis Slight ABG pH 7.497 H ABG pCO2 40.5 ABG pO2 146.7 H ABG HCO3 30.7 H ABG Total CO2 31.9 H ABG O2 Saturation 98.6 ABG Base Excess 6.9 H FiO2 40.00 Sodium 141 Potassium 4.1 Chloride 103 Carbon Dioxide 29 Anion Gap 13.1 BUN 26 H Creatinine 0.50 L GFR Calculation 102 BUN/Creatinine Ratio 52.00 H Glucose 142 H POC Glucose Calculated Osmolality 287.3 Calcium 8.4 L Phosphorus Magnesium 2.4 Prealbumin 08/01/16 08/01/16 04:36 06:03 WBC RBC Hgb Hct MCV MCH MCHC RDW Plt Count MPV Neut % (Auto) Lymph % (Auto) [place] % (Auto) Eos % (Auto) Baso % (Auto) Neut # (Auto) Lymph # (Auto) [place] # (Auto) Eos # (Auto) Baso # (Auto) Total Counted Immature Gran % Nucleated RBC % Immature Gran # Segmented Neutrophils Lymphocytes Monocytes Nucleated RBCs # Platelet Estimate Hypochromasia Microcytosis ABG pH ABG pCO2 ABG pO2 ABG HCO3 ABG Total CO2 ABG O2 Saturation ABG Base Excess FiO2 Sodium Potassium Chloride Carbon Dioxide Anion Gap BUN Creatinine GFR Calculation BUN/Creatinine Ratio Glucose POC Glucose 187 H Calculated Osmolality Calcium Phosphorus 2.4 L Magnesium Prealbumin 22.7
[2016-08-01 08:25] LABS: ABG Base Excess 6.9 MMOL/L (-2.5-2.5); ABG HCO3 30.7 MMOL/L (20-26); ABG Oxygen Saturation 98.3 % (95-100); ABG PCO2 41.2 MM HG (35-48); ABG PH 7.484 (7.35-7.45)
[2016-08-01] MEDS: NYSTATIN 500,000 UNIT/5 ML UDCUP SWISH/SWAL SCH ×4 (08:50→20:20)
[2016-08-01] MEDS: DICLOFENAC 1.3% PATCH 5/PACK TRANSDERM SCH ×2 (08:51→20:20)
[2016-08-01] MEDS: ACETAMINOPHEN 500 MG TABLET PO SCH ×3 (08:51→13:00)
[2016-08-01] MEDS: PANTOPRAZOLE 40 MG TABLET PO SCH (08:52)
[2016-08-01] MEDS: POLYETHYLENE GLYCOL POWDER 17 GM PACK PO SCH (08:52)
[2016-08-01] MEDS: CARVEDILOL 3.125 MG TABLET PO SCH (08:52)
[2016-08-01] MEDS: FINASTERIDE 5 MG TABLET PO SCH (08:52)
[2016-08-01] MEDS: FLUTICASONE/SALMETEROL 500-50 DISKUS 14 DOSE INH SCH ×2 (08:52→20:46)
[2016-08-01] MEDS: DOCUSATE SODIUM 100 MG CAPSULE PO SCH ×2 (08:52→20:19)
[2016-08-01] MEDS: DESITIN 4OZ/NYSTATIN 15 GRAM MIXTURE PASTE TOP SCH ×2 (08:53→20:46)
[2016-08-01 13:15] LABS: Alanine Aminotransferase 86 U/L (16-61); Albumin 2.3 G/DL (3.4-5.0); Alkaline Phosphatase 60 U/L (45-117); Aspartate Amino Transferase 21 U/L (0-37); Bilirubin,Indirect 0.2 MG/DL (0.0-1.0); Bilirubin,Total < 0.39 MG/DL (0.2-1.0); Total Protein 5.2 G/DL (6.4-8.3)
[2016-08-01] MEDS ORDERED: ACETAMINOPHEN 500 MG TABLET PO PRN (14:17)
--- NOTE | 2016-08-01 18:21 | Internal Med Progress Note ---
Assessment and Plan (1) Acute and chronic respiratory failure Status: Acute Current Visit: Yes Qualifiers: Respiratory failure complication: hypoxia Qualified Code(s): J96.21 - Acute and chronic respiratory failure with hypoxia (2) Pulmonary hypertension Status: Chronic Current Visit: Yes (3) Sarcoidosis Status: Chronic Current Visit: Yes (4) Sinus tachycardia Status: Acute Current Visit: Yes Internal Medicine - PN: Subj Interval history: This is a 71 year old male with history of sarcoid lung disease, pulmonary fibrosis, severe pulmonary hypertension, home oxygen for hypoxia, hypotension, who presented to ER with acute coughing/bronchospasm and mucus plug. He has since gone into respiratory failure and had to be intubated. He had CPAP trial today for three hours. Likely will be difficult to wean him off ventilator. His lung disease has been treated in [place] over last few years. He is now extubated much sooner than expected and doing well. He will have swallow eval in the morning if needed. He is doing well with soft solids. NG tube pulled this morning. Oxygen sats are low 90s on high flow. Exam (Progress Note) - Constitutional Vitals: Period Temp Pulse Resp BP Sys/De Paz Pulse Ox Last 24 Hr 96.8 F-98.1 F 68-99 12-26 117-160/64-91 88-98 General appearance: no acute distress - Respiratory Respiratory exam: Present: prolonged expiratory phase, rhonchi - Cardiovascular Cardiovascular exam: Present: tachycardia - GI/Abdominal GI/Abdominal exam: Present: soft. Absent: tenderness - Extremities Exam Extremities exam: Absent: edema - Neurological Exam Neurological exam: Present: alert - Psychiatric Psychiatric exam: Present: normal mood - Skin Skin exam: Present: warm, dry Results - Labs CBC & BMP: 08/01/16 04:36 08/01/16 04:36
[2016-08-01] MEDS: ATENOLOL 25 MG TABLET PO SCH (20:21)
[2016-08-01] MEDS ORDERED: PHENOL 1.4% THROAT SPRAY 177 ML BOTTLE PO PRN (21:43)
[2016-08-01] MEDS ORDERED: ALBUTEROL/IPRATROPIUM 3 ML NEB RESP TX SCH (23:00)
[2016-08-01] MEDS: ALPRAZolam 0.5 MG TABLET PO PRN (23:21)
[2016-08-02] MEDS: INSULIN REGULAR 100 UNIT/ML SUBCUT SCH ×3 (00:43→12:50)
[2016-08-02] MEDS: ALBUTEROL/IPRATROPIUM 3 ML NEB RESP TX SCH ×5 (03:10→19:40)
[2016-08-02 03:34] LABS: ABG Base Excess 8.1 MMOL/L (-2.5-2.5); ABG HCO3 34.5 MMOL/L (20-26); ABG Oxygen Saturation 97.2 % (95-100); ABG PCO2 55.6 MM HG (35-48); ABG PH 7.411 (7.35-7.45); ABG PO2 99.3 MM HG (80-95); ABG TCO2 36.2 MMOL/L (23-27); Allen Test Positive; Pt O2 Delivery Device Venturi Mask
[2016-08-02] MEDS: guaiFENesin 200 MG/10 ML UDCUP NG SCH ×4 (03:54→22:27)
[2016-08-02 05:13] LABS: Basophils % 0.1 % (0.0-0.8); Hematocrit 38.1 VOL% (42.0-52.0); Hemoglobin 12.8 GM/DL (14.0-18.0); Immature Granulocytes % 0.5 %; Immature Granulocytes Absolute 0.06 #; Lymphocytes # 0.5 10*3/uL (1.4-4.0); Lymphocytes % 4.2 % (21.2-54.2); Mean Corpuscular HGB Conc 33.6 GM/DL (32-36); Mean Corpuscular Hemoglobin 29 PG (27-34); Mean Corpuscular Volume 85.8 FL (87-102); Mean Platelet Volume 10.1 FL (9.6-12.0); Monocytes # 0.8 10*3/uL (0.11-0.8); Monocytes % 7.6 % (1.7-12.7); Neutrophils # 9.6 10*3/uL (1.4-7.4); Neutrophils % 87.6 % (38.7-73.9); Platelet Count 191 T/CUMM (130-400); Red Blood Count 4.44 MC/CUMM (3.8-5.5); Red Cell Distribution Width 13.6 % (9.3-17.3)
[2016-08-02 05:38] LABS: Lymphocytes 3 % (20-55); Platelet Estimate Normal; Segmented Neutrophils 91 % (50-85); Total Cells Counted 100
[2016-08-02 05:52] LABS: Calcium 7.8 MG/DL (8.5-10.1); Magnesium 2.4 MG/DL (1.8-2.4); Osmolality,Calculated 288.3 MOS/KG (273-304); Potassium 4.5 MMOL/L (3.5-5.1)
[2016-08-02] MEDS: PIPERACILLIN/TAZOBACTAM 3,375 MG in SODIUM CHLORIDE 0.9% 100 ML IV SCH ×3 (06:32→22:27)
[2016-08-02] MEDS: methylPREDNISolone SOD SUC 125 MG/2 ML VIAL IV SCH (06:32)
[2016-08-02] MEDS: ENOXAPARIN 40 MG/0.4 ML SYRINGE SUBCUT SCH (06:32)
--- NOTE | 2016-08-02 07:38 | XRay Report ---
XR chest 1V portable Indication: Ventilator Comparison: Chest x-ray dated August 01, 2016 Technique: Single frontal view of the chest. Findings: Interval extubation. Suspect small right apical pneumothorax. Continued diffuse pleural-parenchymal abnormality. Consider CT chest for further evaluation. Visualized osseous and surrounding soft tissue structures appear grossly unchanged. IMPRESSION: As above. Critical Results: Findings discussed with nurse Daniela Min at time of dictation. PROCEDURE INTERPRETED AT [facility] DEPARTMENT OF RADIOLOGY Final Report Signed by: Dr Naren Hidalgo
--- NOTE | 2016-08-02 08:37 | Pulmonology Progress Note ---
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 He also has secondary pulmonary hypertension. He has been on low-dose prednisone. Last week he had chest congestion and coughing and came in with some respiratory distress. Over the weekend he had to be intubated. He did have a very elevated white count and is being treated for pneumonia. He had more distress and had to be intubated. He is now stable on the ventilator. He is responding okay and his oxygenation has improved. His white count has come down nicely and there is nothing so far on culture. Yesterday he was extubated and his breathing is doing okay. Last night he was very anxious and got some Xanax. He is coughing up a little sputum. It does look like he has a small right apex pneumothorax that is probably not causing any problems. He does seem to breathe comfortably this morning. Exam (Progress Note) - Constitutional Vitals: Period Temp Pulse Resp BP Sys/De Paz Pulse Ox Last 24 Hr 97.4 F-98.7 F 75-111 15-26 101-144/61-91 88-98 Exam: General appearance: no acute distress (The patient is alert and talking and comfortable.) - Head Head exam: Present: normal inspection, normocephalic - Eye Eye exam: Present: EOMI. Absent: scleral icterus Pupils: Present: JUAN - ENT ENT exam: Present: Unremarkable - Neck Neck exam: Present: normal inspection. Absent: lymphadenopathy, thyromegaly - Respiratory Respiratory exam: Present: He has fair breath sounds bilaterally although there are little coarse. Breath sounds are slightly diminished in the right apex. He still has some mild wheezing. - Cardiovascular Cardiovascular exam: Present: regular rate and rhythm. Absent: gallop, systolic murmur - GI/Abdominal GI/Abdominal exam: Present: normal bowel sounds, soft. Absent: organomegaly, tenderness - Extremities Exam Extremities exam: Absent: calf tenderness, edema, there is no signs of phlebitis. - Neurological Exam Neurological exam: Present: other he is moving his extremities and no focal deficits. - Skin Skin exam: Present: warm, dry Results - Labs CBC & BMP: 08/02/16 04:29 08/02/16 04:29 Labs: PO2 is 99 with a PCO2 of 55 and a pH of 7.41 - Diagnostic Findings Procedure: Chest x-ray: image reviewed by me, report reviewed by me (Chest x- ray is stable with extensive bilateral upper lobe infiltrates. There is a question of a small loculated pneumothorax in the right apex.) Assessment and Plan (1) Pneumonia Status: Acute Assessment and plan: The patient came in with some chest congestion and elevated white count is being treated for pneumonia. Clinically he is doing a little better. His chest x-ray looks close to baseline now. He does seem to be breathing comfortably at present. Current Visit: Yes (2) Sarcoidosis Status: Chronic Assessment and plan: Patient has a long history of sarcoidosis with pulmonary fibrosis. He is stable on steroids and antibiotics. Current Visit: Yes (3) Pulmonary hypertension Status: Chronic Assessment and plan: The patient has secondary pulmonary hypertension related to his lung fibrosis. Current Visit: Yes (4) Acute and chronic respiratory failure Status: Acute Assessment and plan: The patient developed acute respiratory distress on top of his chronic lung problems. He was intubated over the weekend. His oxygenation is much better and his chest x-ray looks better. Yesterday he was extubated and seems to be breathing okay. His ABGs are stable. We will continue with vigorous treatment. Current Visit: Yes Qualifiers: Respiratory failure complication: hypoxia Qualified Code(s): J96.21 - Acute and chronic respiratory failure with hypoxia
[2016-08-02] MEDS: FINASTERIDE 5 MG TABLET PO SCH (09:21)
[2016-08-02] MEDS: PANTOPRAZOLE 40 MG TABLET PO SCH (09:21)
[2016-08-02] MEDS: ATENOLOL 25 MG TABLET PO SCH ×2 (09:22→20:36)
[2016-08-02] MEDS: DESITIN 4OZ/NYSTATIN 15 GRAM MIXTURE PASTE TOP SCH ×2 (09:23→20:37)
[2016-08-02] MEDS: DICLOFENAC 1.3% PATCH 5/PACK TRANSDERM SCH ×2 (09:30→20:37)
[2016-08-02] MEDS: DOCUSATE SODIUM 100 MG CAPSULE PO SCH ×2 (09:30→20:38)
[2016-08-02] MEDS: FLUTICASONE/SALMETEROL 500-50 DISKUS 14 DOSE INH SCH ×2 (09:30→20:38)
[2016-08-02] MEDS: NYSTATIN 500,000 UNIT/5 ML UDCUP SWISH/SWAL SCH ×4 (09:30→20:36)
[2016-08-02] MEDS: POLYETHYLENE GLYCOL POWDER 17 GM PACK PO SCH (09:34)
--- NOTE | 2016-08-02 09:46 | Cardiology Progress Note ---
Assessment and Plan (1) Acute and chronic respiratory failure Status: Acute Assessment and plan: See plan of care listed below. Current Visit: Yes Qualifiers: Respiratory failure complication: hypoxia Qualified Code(s): J96.21 - Acute and chronic respiratory failure with hypoxia (2) Pneumonia Status: Acute Assessment and plan: See plan of care listed below. Current Visit: Yes (3) Sinus tachycardia Status: Acute Assessment and plan: See plan of care listed below. Current Visit: Yes (4) Pulmonary hypertension Status: Chronic Assessment and plan: See plan of care listed below. Current Visit: Yes (5) Sarcoidosis Status: Chronic Assessment and plan: See plan of care listed below. Current Visit: Yes (6) Hypertension Status: Acute Assessment and plan: See plan of care listed below. Current Visit: Yes Cardiology - PN: Subj Interval history: Environmental Planning Engineer: Zamzam to cardiology Dr. Freeman (new) SUMMARY: Mr. Randhawa is a 71 year old male with spondylosis and sarcoid who is admitted with a long process initially diagnosis pneumonia who developed respiratory distress on the floor and was intubated received a dose of epinephrine had sinus tachycardia post procedure. I reviewed his ECGs which was without acute process. He has a pulmonary disease type pattern with incomplete right bundle branch block and atrial abnormality. Cardiology was consulted to see patient for sinus tachycardia. Echocardiogram was performed which revealed left ventricular ejection fraction of 55%. Grade 1 diastolic dysfunction. Normal left ventricular wall thickness. Tricuspid regurgitation velocities suggest a RVSP of 51 mmHg. Patient remains sedated and ventilated in the cardiac care unit. Patient has never seen a chief investment officer previously prior to this admission. July UPDATE - Patient was seen and examined in the cardiac care unit. Patient was extubated yesterday. This morning, patient is in no acute respiratory distress on Ventimask. Currently, patient is in sinus rhythm with heart rates in the 90's. No overt arrhythmias or ectopy noted. Blood pressure is well controlled. Beta-neli was changed from Coreg to atenolol yesterday as patient was having wheezing. This morning, minimal wheezing is auscultated. Labs have been reviewed. At this point, patient is stable from a cardiac standpoint. We will continue current plan of care. Assessment/plan: 1. SINUS TACHYCARDIA - Resolved. Patient is currently in normal sinus rhythm heart rates in the 90's. Continue current plan of care with atenolol. Will increase patient's atenolol if needed. 2. ACUTE RESPIRATORY FAILURE - Resolved. Pulmonary is following. 3. PULMONARY HYPERTENSION - Continue current plan of care. 4. SARCOIDOSIS - Management per attending. 5. PNEUMONIA - Continue current plan of care with IV antibiotics and steroids. Management per attending. 6. HYPERTENSION -blood pressure is well controlled today. Will continue current plan of care with atenolol. Will further adjust as needed throughout his hospital stay. Further plan and addendum to follow per Dr. Lea. Exam (Progress Note) - Constitutional Vitals: Period Temp Pulse Resp BP Sys/De Paz Pulse Ox Last 24 Hr 97.4 F-98.7 F 75-111 16-26 101-142/61-91 88-98 Exam: General: Patient is awake and alert in no acute distress. Appears comfortable. HEENT: PERRL, normocephalic, atraumatic. Mucous membranes moist. No jaundice noted. Conjunctiva moist and clear, sclerae anicteric Neck: No JVD/HJR, no thyromegaly or lymphadenopathy noted. Cardiac: Regular rate and rhythm. Murmur auscultated consistent with tricuspid regurgitation. Lungs: Breath sounds better today. Only minimal rhonchi and wheezing heard today. Requiring oxygen Via Ventimask. Abdomen: Soft, bowel sounds normoactive. Nontender and nondistended. Extremities: No clubbing, cyanosis noted. No edema noted. Upper extremity pulses 2+. Lower extremity pulses 2+. Capillary refill less than 3 seconds. Skin: No unusual lesions or rashes. No skin breakdown appreciated. Neuro: Awake, alert and oriented 3. Moves all extremities well without hemiparesis or paralysis. No essential tremor is appreciated. Result/EKG - Labs CBC & BMP: 08/02/16 04:29 08/02/16 04:29 Lab Results: I have reviewed the past 24 hour labs Labs: Laboratory Results - last 24 hr 08/01/16 08/01/16 08/01/16 04:35 11:20 18:28 WBC RBC Hgb Hct MCV MCH MCHC RDW Plt Count MPV Neut % (Auto) Lymph % (Auto) [place] % (Auto) Eos % (Auto) Baso % (Auto) Neut # (Auto) Lymph # (Auto) [place] # (Auto) Eos # (Auto) Baso # (Auto) Total Counted Immature Gran % Nucleated RBC % Immature Gran # Segmented Neutrophils Lymphocytes Monocytes Nucleated RBCs # Platelet Estimate ABG pH ABG pCO2 ABG pO2 ABG HCO3 ABG Total CO2 ABG O2 Saturation ABG Base Excess FiO2 Sodium Potassium Chloride Carbon Dioxide Anion Gap BUN Creatinine GFR Calculation BUN/Creatinine Ratio Glucose POC Glucose 112 H 127 H Calculated Osmolality Calcium Magnesium Total Bilirubin < 0.39 Direct Bilirubin 0.20 Indirect Bilirubin 0.2 AST 21 ALT 86 H Alkaline Phosphatase 60 Total Protein 5.2 L Albumin 2.3 L 08/02/16 08/02/16 08/02/16 00:21 03:25 04:29 WBC RBC Hgb Hct MCV MCH MCHC RDW Plt Count MPV Neut % (Auto) Lymph % (Auto) [place] % (Auto) Eos % (Auto) Baso % (Auto) Neut # (Auto) Lymph # (Auto) [place] # (Auto) Eos # (Auto) Baso # (Auto) Total Counted Immature Gran % Nucleated RBC % Immature Gran # Segmented Neutrophils Lymphocytes Monocytes Nucleated RBCs # Platelet Estimate ABG pH 7.411 ABG pCO2 55.6 H ABG pO2 99.3 H ABG HCO3 34.5 H ABG Total CO2 36.2 H ABG O2 Saturation 97.2 ABG Base Excess 8.1 H FiO2 50.00 Sodium 141 Potassium 4.5 Chloride 104 Carbon Dioxide 33 H Anion Gap 8.5 BUN 30 H Creatinine 0.50 L GFR Calculation 102 BUN/Creatinine Ratio 60.00 H Glucose 126 H POC Glucose 144 H Calculated Osmolality 288.3 Calcium 7.8 L Magnesium 2.4 Total Bilirubin Direct Bilirubin Indirect Bilirubin AST ALT Alkaline Phosphatase Total Protein Albumin 08/02/16 08/02/16 04:29 06:10 WBC 11.0 RBC 4.44 Hgb 12.8 L Hct 38.1 L MCV 85.8 L MCH 29 MCHC 33.6 RDW 13.6 Plt Count 191 MPV 10.1 Neut % (Auto) 87.6 H Lymph % (Auto) 4.2 L [place] % (Auto) 7.6 Eos % (Auto) 0.0 Baso % (Auto) 0.1 Neut # (Auto) 9.6 H Lymph # (Auto) 0.5 L [place] # (Auto) 0.8 Eos # (Auto) 0.0 Baso # (Auto) 0.0 Total Counted 100 Immature Gran % 0.5 Nucleated RBC % 0.0 Immature Gran # 0.06 Segmented Neutrophils 91 H Lymphocytes 3 L Monocytes 6 Nucleated RBCs # 0.00 Platelet Estimate Normal ABG pH ABG pCO2 ABG pO2 ABG HCO3 ABG Total CO2 ABG O2 Saturation ABG Base Excess FiO2 Sodium Potassium Chloride Carbon Dioxide Anion Gap BUN Creatinine GFR Calculation BUN/Creatinine Ratio Glucose POC Glucose 109 H Calculated Osmolality Calcium Magnesium Total Bilirubin Direct Bilirubin Indirect Bilirubin AST ALT Alkaline Phosphatase Total Protein Albumin
[2016-08-02] MEDS: ALPRAZolam 0.5 MG TABLET PO PRN (13:30)
[2016-08-02] MEDS: methylPREDNISolone SOD SUC 40 MG/1 ML VIAL IV SCH ×2 (13:32→22:27)
--- NOTE | 2016-08-02 18:35 | Internal Med Progress Note ---
Assessment and Plan (1) Acute and chronic respiratory failure Status: Acute Current Visit: Yes Qualifiers: Respiratory failure complication: hypoxia Qualified Code(s): J96.21 - Acute and chronic respiratory failure with hypoxia (2) Pulmonary hypertension Status: Chronic Current Visit: Yes (3) Sarcoidosis Status: Chronic Current Visit: Yes (4) Sinus tachycardia Status: Acute Current Visit: Yes (5) Anemia Status: Chronic Current Visit: Yes Qualifiers: Anemia type: iron deficiency Iron deficiency anemia type: inadequate dietary iron intake Qualified Code(s): D50.8 - Other iron deficiency anemias (6) Pneumonia Status: Acute Current Visit: Yes Internal Medicine - PN: Subj Interval history: This is a 71 year old male with history of sarcoid lung disease, pulmonary fibrosis, severe pulmonary hypertension, home oxygen for hypoxia, hypotension, who presented to ER with acute coughing/bronchospasm and mucus plug. He has since gone into respiratory failure and had to be intubated. He had CPAP trial today for three hours. Likely will be difficult to wean him off ventilator. His lung disease has been treated in [place] over last few years. He is now extubated much sooner than expected and doing well. He will have swallow eval in the morning if needed. He is doing well with soft solids. NG tube pulled this morning. Oxygen sats are low 90s on high flow. Doing better and sitting up to eat while on rounds. Discussed case with brother who is visiting from [facility]. He can be moved out of CCU within a day or two. Exam (Progress Note) - Constitutional Vitals: Period Temp Pulse Resp BP Sys/De Paz Pulse Ox Last 24 Hr 97.4 F-99.0 F 75-108 16-25 101-160/55-85 92-98 General appearance: no acute distress - Respiratory Respiratory exam: Present: rhonchi (scattered and diffuse anterior aspect; lung bases much clearer today) - Cardiovascular Cardiovascular exam: Present: tachycardia - GI/Abdominal GI/Abdominal exam: Present: soft. Absent: tenderness - Extremities Exam Extremities exam: Absent: edema - Neurological Exam Neurological exam: Present: alert, oriented X3, CN II-XII intact - Psychiatric Psychiatric exam: Present: normal mood - Skin Skin exam: Present: warm, dry Results - Labs CBC & BMP: 08/03/16 05:24 08/03/16 05:24
[2016-08-03] MEDS: ALBUTEROL/IPRATROPIUM 3 ML NEB RESP TX SCH ×7 (00:25→23:58)
[2016-08-03] MEDS: guaiFENesin 200 MG/10 ML UDCUP NG SCH ×4 (03:52→22:23)
[2016-08-03 05:52] LABS: Basophils % 0.1 % (0.0-0.8); Hematocrit 36.9 VOL% (42.0-52.0); Hemoglobin 12.5 GM/DL (14.0-18.0); Immature Granulocytes Absolute 0.11 #; Lymphocytes # 0.4 10*3/uL (1.4-4.0); Lymphocytes % 3.8 % (21.2-54.2); Mean Corpuscular HGB Conc 33.9 GM/DL (32-36); Mean Corpuscular Hemoglobin 29 PG (27-34); Mean Corpuscular Volume 86.2 FL (87-102); Mean Platelet Volume 9.9 FL (9.6-12.0); Monocytes # 0.7 10*3/uL (0.11-0.8); Monocytes % 5.7 % (1.7-12.7); Neutrophils # 10.2 10*3/uL (1.4-7.4); Neutrophils % 89.4 % (38.7-73.9); Platelet Count 173 T/CUMM (130-400); Red Blood Count 4.28 MC/CUMM (3.8-5.5); Red Cell Distribution Width 13.4 % (9.3-17.3); White Blood Count 11.4 T/CUMM (4-12)
[2016-08-03 06:14] LABS: Hypochromasia Slight; Lymphocytes 3 % (20-55); Segmented Neutrophils 95 % (50-85); Total Cells Counted 100
[2016-08-03 06:25] LABS: Calcium 8.5 MG/DL (8.5-10.1); Magnesium 2.2 MG/DL (1.8-2.4); Osmolality,Calculated 288.1 MOS/KG (273-304); Potassium 4.3 MMOL/L (3.5-5.1)
[2016-08-03] MEDS: ENOXAPARIN 40 MG/0.4 ML SYRINGE SUBCUT SCH (06:34)
[2016-08-03] MEDS: methylPREDNISolone SOD SUC 40 MG/1 ML VIAL IV SCH ×3 (06:35→22:24)
--- NOTE | 2016-08-03 08:24 | Pulmonology Progress Note ---
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 He also has secondary pulmonary hypertension. He has been on low-dose prednisone. Last week he had chest congestion and coughing and came in with some respiratory distress. Over the weekend he had to be intubated. He did have a very elevated white count and is being treated for pneumonia. He had more distress and had to be intubated. He is now stable on the ventilator. He is responding okay and his oxygenation has improved. His white count has come down nicely and there is nothing so far on culture. He came off the ventilator okay and is doing fairly well. He is very weak and cannot do much activity yet. He says his breathing is doing okay but he still having some cough and congestion. His chest x-ray is stable. There is no definite increase pneumothorax at all. He is not sleeping that well. He can move to a regular room today. Exam (Progress Note) - Constitutional Vitals: Period Temp Pulse Resp BP Sys/De Paz Pulse Ox Last 24 Hr 97.6 F-99.0 F 84-99 13-26 107-160/55-90 92-98 Exam: General appearance: no acute distress (The patient is alert and talking and comfortable.) - Head Head exam: Present: normal inspection, normocephalic - Eye Eye exam: Present: EOMI. Absent: scleral icterus Pupils: Present: JUAN - ENT ENT exam: Present: Unremarkable - Neck Neck exam: Present: normal inspection. Absent: lymphadenopathy, thyromegaly - Respiratory Respiratory exam: Present: He has fair breath sounds bilaterally although they are little coarse. He has some rhonchi present but wheezing is better. - Cardiovascular Cardiovascular exam: Present: regular rate and rhythm. Absent: gallop, systolic murmur - GI/Abdominal GI/Abdominal exam: Present: normal bowel sounds, soft. Absent: organomegaly, tenderness - Extremities Exam Extremities exam: Absent: calf tenderness, edema, there is no signs of phlebitis. - Neurological Exam Neurological exam: Present: other he is moving his extremities and no focal deficits. - Skin Skin exam: Present: warm, dry Results - Labs CBC & BMP: 08/03/16 05:24 08/03/16 05:24 - Diagnostic Findings Procedure: Chest x-ray: image reviewed by me, report reviewed by me (Chest x- ray shows extensive bilateral upper lobe disease that is stable. There is no increased pneumothorax.) Assessment and Plan (1) Pneumonia Status: Acute Assessment and plan: The patient came in with some chest congestion and elevated white count is being treated for pneumonia. Clinically he is doing a little better. Overall his pneumonia is better. Current Visit: Yes (2) Sarcoidosis Status: Chronic Assessment and plan: Patient has a long history of sarcoidosis with pulmonary fibrosis. He is stable on steroids and antibiotics. Current Visit: Yes (3) Pulmonary hypertension Status: Chronic Assessment and plan: The patient has secondary pulmonary hypertension related to his lung fibrosis. Current Visit: Yes (4) Acute and chronic respiratory failure Status: Acute Assessment and plan: The patient developed acute respiratory distress on top of his chronic lung problems. He was intubated over the weekend. His oxygenation is much better and his chest x-ray looks better. He is stable off the ventilator. He still has a little cough and congestion. He feels like his breathing is doing better. He can probably move to a regular room now. Current Visit: Yes Qualifiers: Respiratory failure complication: hypoxia Qualified Code(s): J96.21 - Acute and chronic respiratory failure with hypoxia
--- NOTE | 2016-08-03 08:35 | XRay Report ---
Exam: XR chest 1V portable Indication: Pulmonary fibrosis, shortness of breath, right apical pneumothorax Comparison study: 08/02/2016 Findings: Diffuse interstitial opacities and partially calcified perihilar nodes are unchanged from prior most compatible with interstitial fibrosis changes and evidence of prior granulomatous disease. Similar basilar pleural thickening and scalloping is also unchanged with small to moderate bilateral pleural effusions. The previously noted right apical pneumothorax is less apparent on the current study and may be resolved but is not well visualized. This bears watching on subsequent studies. Osseous structures appear stable from prior. Impression: Previously noted right apical pneumothorax appears resolved on the current study but is also not well visualized due to overlapping structures and diffuse fibrotic parenchymal changes. Continued assessment and follow-up studies for stability is recommended. Otherwise, no significant change. PROCEDURE INTERPRETED AT [facility] DEPARTMENT OF RADIOLOGY Final Report Signed by: Jared Hyatt
[2016-08-03] MEDS: PIPERACILLIN/TAZOBACTAM 3,375 MG in SODIUM CHLORIDE 0.9% 100 ML IV SCH ×3 (09:00→22:29)
[2016-08-03] MEDS: NYSTATIN 500,000 UNIT/5 ML UDCUP SWISH/SWAL SCH ×4 (09:08→21:01)
[2016-08-03] MEDS: FINASTERIDE 5 MG TABLET PO SCH (09:09)
[2016-08-03] MEDS: ATENOLOL 25 MG TABLET PO SCH ×3 (09:09→21:01)
[2016-08-03] MEDS: DOCUSATE SODIUM 100 MG CAPSULE PO SCH ×3 (09:09→21:04)
[2016-08-03] MEDS: FLUTICASONE/SALMETEROL 500-50 DISKUS 14 DOSE INH SCH ×2 (09:09→21:02)
[2016-08-03] MEDS: PANTOPRAZOLE 40 MG TABLET PO SCH (09:09)
[2016-08-03] MEDS: POLYETHYLENE GLYCOL POWDER 17 GM PACK PO SCH (09:10)
[2016-08-03] MEDS: DESITIN 4OZ/NYSTATIN 15 GRAM MIXTURE PASTE TOP SCH ×2 (09:10→21:03)
--- NOTE | 2016-08-03 09:23 | Cardiology Progress Note ---
Assessment and Plan (1) Acute and chronic respiratory failure Status: Resolved Assessment and plan: See plan of care listed below. Current Visit: Yes Qualifiers: Respiratory failure complication: hypoxia Qualified Code(s): J96.21 - Acute and chronic respiratory failure with hypoxia (2) Pneumonia Status: Acute Assessment and plan: See plan of care listed below. Current Visit: Yes (3) Sinus tachycardia Status: Resolved Assessment and plan: See plan of care listed below. Current Visit: Yes (4) Pulmonary hypertension Status: Chronic Assessment and plan: See plan of care listed below. Current Visit: Yes (5) Sarcoidosis Status: Chronic Assessment and plan: See plan of care listed below. Current Visit: Yes (6) Hypertension Status: Acute Assessment and plan: See plan of care listed below. 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 Freeman (new) SUMMARY: Mr. Randhawa is a 71 year old male with spondylosis and sarcoid who is admitted with a long process initially diagnosis pneumonia who developed respiratory distress on the floor and was intubated received a dose of epinephrine had sinus tachycardia post procedure. I reviewed his ECGs which was without acute process. He has a pulmonary disease type pattern with incomplete right bundle branch block and atrial abnormality. Cardiology was consulted to see patient for sinus tachycardia. Echocardiogram was performed which revealed left ventricular ejection fraction of 55%. Grade 1 diastolic dysfunction. Normal left ventricular wall thickness. Tricuspid regurgitation velocities suggest a RVSP of 51 mmHg. Patient remains sedated and ventilated in the cardiac care unit. Patient has never seen a floor molder previously prior to this admission. July UPDATE - Patient was seen and examined in the cardiac care unit. Patient has been extubated, currently on oxygen via nasal cannula. Patient is without acute respiratory distress. Patient is sitting up in bed eating breakfast, family at bedside. He did well overnight and is without complaints this morning. Currently, patient is in sinus rhythm with heart rates ranging from 90s-100s. No overt arrhythmias or ectopy noted. Blood pressure is well controlled. Beta-neli was changed from Coreg to atenolol yesterday as patient was having wheezing. This morning, minimal wheezing is auscultated. Labs have been reviewed. At this point, patient is stable from a cardiac standpoint. We will continue current plan of care. Assessment/plan: 1. SINUS TACHYCARDIA - Telemetry was reviewed this morning, patient's heart rate ranging from 90s-110. At this time, I will increase patient's atenolol as patient's blood pressure is also mildly high, 152/90 this morning. 2. ACUTE RESPIRATORY FAILURE - Resolved. Pulmonary is following. 3. PULMONARY HYPERTENSION - Continue current plan of care. 4. SARCOIDOSIS - Management per attending. 5. PNEUMONIA - Continue current plan of care with IV antibiotics and steroids. Management per attending. 6. HYPERTENSION - Blood pressure is mildly high this morning, 152/90. I have increased patient's atenolol dose. Will make further adjustments as needed. Further plan and addendum to follow per Dr. Lea. Exam (Progress Note) - Constitutional Vitals: Period Temp Pulse Resp BP Sys/De Paz Pulse Ox Last 24 Hr 97.6 F-99.0 F 84-99 13-26 107-160/55-90 92-98 Exam: General: Patient is awake and alert in no acute distress. Appears comfortable. HEENT: PERRL, normocephalic, atraumatic. Mucous membranes moist. No jaundice noted. Conjunctiva moist and clear, sclerae anicteric Neck: No JVD/HJR, no thyromegaly or lymphadenopathy noted. Cardiac: Regular rate and rhythm. Murmur auscultated consistent with tricuspid regurgitation. Lungs: Breath sounds continue to improve daily. Only minimal rhonchi auscultated, without wheezing. Requiring oxygen Via nasal cannula. Abdomen: Soft, bowel sounds normoactive. Nontender and nondistended. Extremities: No clubbing, cyanosis noted. No edema noted. Upper extremity pulses 2+. Lower extremity pulses 2+. Capillary refill less than 3 seconds. Skin: No unusual lesions or rashes. No skin breakdown appreciated. Neuro: Awake, alert and oriented 3. Moves all extremities well without hemiparesis or paralysis. No essential tremor is appreciated. Result/EKG - Labs CBC & BMP: 08/03/16 05:24 08/03/16 05:24 Lab Results: I have reviewed the past 24 hour labs Labs: Laboratory Results - last 24 hr 08/03/16 08/03/16 05:24 05:24 WBC 11.4 RBC 4.28 Hgb 12.5 L Hct 36.9 L MCV 86.2 L MCH 29 MCHC 33.9 RDW 13.4 Plt Count 173 MPV 9.9 Neut % (Auto) 89.4 H Lymph % (Auto) 3.8 L [place] % (Auto) 5.7 Eos % (Auto) 0.0 Baso % (Auto) 0.1 Neut # (Auto) 10.2 H Lymph # (Auto) 0.4 L [place] # (Auto) 0.7 Eos # (Auto) 0.0 Baso # (Auto) 0.0 Total Counted 100 Immature Gran % 1.0 Nucleated RBC % 0.0 Immature Gran # 0.11 Segmented Neutrophils 95 H Lymphocytes 3 L Monocytes 2 Nucleated RBCs # 0.00 Hypochromasia Slight Morphology Comment Sodium 142 Potassium 4.3 Chloride 102 Carbon Dioxide 31 Anion Gap 13.3 BUN 23 H Creatinine 0.50 L GFR Calculation 102 BUN/Creatinine Ratio 46.00 H Glucose 143 H Calculated Osmolality 288.1 Calcium 8.5 Magnesium 2.2
[2016-08-03] MEDS: DICLOFENAC 1.3% PATCH 5/PACK TRANSDERM SCH ×2 (10:51→21:01)
[2016-08-03] MEDS: INSULIN REGULAR 100 UNIT/ML SUBCUT SCH (17:56)
--- NOTE | 2016-08-03 21:13 | Internal Med Progress Note ---
Assessment and Plan (1) Acute and chronic respiratory failure Status: Resolved Current Visit: Yes Qualifiers: Respiratory failure complication: hypoxia Qualified Code(s): J96.21 - Acute and chronic respiratory failure with hypoxia (2) Pulmonary hypertension Status: Chronic Current Visit: Yes (3) Sarcoidosis Status: Chronic Current Visit: Yes (4) Sinus tachycardia Status: Resolved Current Visit: Yes (5) Anemia Status: Chronic Current Visit: Yes Qualifiers: Anemia type: iron deficiency Iron deficiency anemia type: inadequate dietary iron intake Qualified Code(s): D50.8 - Other iron deficiency anemias (6) Pneumonia Status: Acute Current Visit: Yes Internal Medicine - PN: Subj Interval history: This is a 71 year old male with history of sarcoid lung disease, pulmonary fibrosis, severe pulmonary hypertension, home oxygen for hypoxia, hypotension, who presented to ER with acute coughing/bronchospasm and mucus plug. He has since gone into respiratory failure and had to be intubated. He had CPAP trial today for three hours. Likely will be difficult to wean him off ventilator. His lung disease has been treated in [place] over last few years. He is now extubated much sooner than expected and doing well. He will have swallow eval in the morning if needed. He is doing well with soft solids. NG tube pulled this morning. Oxygen sats are low 90s on high flow. Doing better and sitting up to eat while on rounds. Discussed case with brother who is visiting from [facility]. He can be moved out of CCU within a day or two. He has been moved to [facility] floor and is fatigued today, but overall better. Pneumothorax improved on x-ray. Exam (Progress Note) - Constitutional Vitals: Period Temp Pulse Resp BP Sys/De Paz Pulse Ox Last 24 Hr 97.6 F-98.2 F 83-100 12-24 103-152/71-91 88-98 General appearance: no acute distress, other (fatigued) - Respiratory Respiratory exam: Present: rhonchi (scattered) - Cardiovascular Cardiovascular exam: Present: regular rate and rhythm - GI/Abdominal GI/Abdominal exam: Present: soft. Absent: tenderness - Extremities Exam Extremities exam: Absent: edema - Neurological Exam Neurological exam: Present: alert - Psychiatric Psychiatric exam: Present: normal mood - Skin Skin exam: Present: warm, dry Results - Labs CBC & BMP: 08/03/16 05:24 08/03/16 05:24 - Diagnostic Findings Procedure: Chest x-ray: image reviewed by me, report reviewed by me
[2016-08-04] MEDS: ALBUTEROL/IPRATROPIUM 3 ML NEB RESP TX SCH ×6 (04:06→23:10)
[2016-08-04] MEDS: guaiFENesin 200 MG/10 ML UDCUP NG SCH ×5 (04:48→21:33)
[2016-08-04 06:03] LABS: Basophils % 0.1 % (0.0-0.8); Hematocrit 37.1 VOL% (42.0-52.0); Hemoglobin 12.3 GM/DL (14.0-18.0); Immature Granulocytes % 1.4 %; Immature Granulocytes Absolute 0.16 #; Lymphocytes # 0.5 10*3/uL (1.4-4.0); Lymphocytes % 4.6 % (21.2-54.2); Mean Corpuscular HGB Conc 33.2 GM/DL (32-36); Mean Corpuscular Hemoglobin 28 PG (27-34); Mean Corpuscular Volume 84.7 FL (87-102); Mean Platelet Volume 10.5 FL (9.6-12.0); Monocytes # 0.6 10*3/uL (0.11-0.8); Monocytes % 5.2 % (1.7-12.7); Neutrophils # 10.1 10*3/uL (1.4-7.4); Neutrophils % 88.7 % (38.7-73.9); Platelet Count 213 T/CUMM (130-400); Red Blood Count 4.38 MC/CUMM (3.8-5.5); Red Cell Distribution Width 13.5 % (9.3-17.3); White Blood Count 11.4 T/CUMM (4-12)
[2016-08-04] MEDS: methylPREDNISolone SOD SUC 40 MG/1 ML VIAL IV SCH ×3 (06:21→21:33)
[2016-08-04] MEDS: PIPERACILLIN/TAZOBACTAM 3,375 MG in SODIUM CHLORIDE 0.9% 100 ML IV SCH ×3 (06:27→22:49)
[2016-08-04 06:33] LABS: Calcium 8.2 MG/DL (8.5-10.1); Magnesium 2.3 MG/DL (1.8-2.4); Osmolality,Calculated 279.7 MOS/KG (273-304); Potassium 4.5 MMOL/L (3.5-5.1)
[2016-08-04 06:39] LABS: Hypochromasia 1+; Lymphocytes 1 % (20-55); Microcytosis Slight; Platelet Estimate Normal; Segmented Neutrophils 95 % (50-85); Total Cells Counted 100
--- NOTE | 2016-08-04 08:12 | XRay Report ---
XR chest 1V portable Indication: Right apical pneumothorax Comparison: Chest x-ray dated August 03, 2016 at 3:26 AM Technique: Single frontal view of the chest. Findings: The cardiomediastinal silhouette is stable in configuration. Diffuse bilateral pleural-parenchymal abnormality appears similar to prior examination. Much of this is likely due to fibrosis. No definite pneumothorax. Granulomatous change again noted. Visualized osseous and surrounding soft tissue structures appear grossly unchanged. IMPRESSION: No significant interval change. PROCEDURE INTERPRETED AT [facility] DEPARTMENT OF RADIOLOGY Final Report Signed by: Dr Naren Hidalgo
--- NOTE | 2016-08-04 08:29 | Pulmonology Progress Note ---
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 He also has secondary pulmonary hypertension. He has been on low-dose prednisone. Last week he had chest congestion and coughing and came in with some respiratory distress. Over the weekend he had to be intubated. He did have a very elevated white count and is being treated for pneumonia. He had more distress and had to be intubated. He did well on the ventilator and was extubated. He feels like his breathing is doing better now. He moved to a regular room yesterday and had a fairly good night. He is still very weak but is sitting up and eating fairly well. He will probably start physical therapy today. His cough and congestion are better. Overall he is feeling better. Exam (Progress Note) - Constitutional Vitals: Period Temp Pulse Resp BP Sys/De Paz Pulse Ox Last 24 Hr 97.6 F-98.7 F 79-100 16-23 103-147/70-91 88-99 Exam: General appearance: no acute distress (The patient is alert and talking and comfortable. He is sitting up and eating breakfast this morning.) - Head Head exam: Present: normal inspection, normocephalic - Eye Eye exam: Present: EOMI. Absent: scleral icterus Pupils: Present: JUAN - ENT ENT exam: Present: Unremarkable - Neck Neck exam: Present: normal inspection. Absent: lymphadenopathy, thyromegaly - Respiratory Respiratory exam: Present: He has fair breath sounds bilaterally although they are little coarse. He is not having any wheezing now is moving air okay. - Cardiovascular Cardiovascular exam: Present: regular rate and rhythm. Absent: gallop, systolic murmur - GI/Abdominal GI/Abdominal exam: Present: normal bowel sounds, soft. Absent: organomegaly, tenderness - Extremities Exam Extremities exam: Absent: calf tenderness, edema, there is no signs of phlebitis. - Neurological Exam Neurological exam: Present: He is moving around a little better although he is still weak. - Skin Skin exam: Present: warm, dry Results - Labs CBC & BMP: 08/04/16 04:53 08/04/16 04:53 - Diagnostic Findings Procedure: Chest x-ray: image reviewed by me, report reviewed by me (Chest x- ray shows bilateral upper lobe disease. The x-ray is fairly stable.) Assessment and Plan (1) Pneumonia Status: Acute Assessment and plan: The patient came in with some chest congestion and elevated white count is being treated for pneumonia. Clinically he is doing a little better. Overall his pneumonia is better. He will continue with antibiotics a little longer. Current Visit: Yes (2) Sarcoidosis Status: Chronic Assessment and plan: Patient has a long history of sarcoidosis with pulmonary fibrosis. He is stable on steroids and antibiotics. Current Visit: Yes (3) Pulmonary hypertension Status: Chronic Assessment and plan: The patient has secondary pulmonary hypertension related to his lung fibrosis. Current Visit: Yes (4) Acute and chronic respiratory failure Status: Resolved Assessment and plan: The patient developed acute respiratory distress on top of his chronic lung problems. He was intubated over the weekend. His oxygenation is much better and his chest x-ray looks better. He is stable off the ventilator. He is starting to move around a little better and feels like his breathing is better. He is still very weak and slow moving. He still has a little trouble clearing his secretions. His chest x-ray is stable. He will continue with steroids and respiratory therapy. Current Visit: Yes Qualifiers: Respiratory failure complication: hypoxia Qualified Code(s): J96.21 - Acute and chronic respiratory failure with hypoxia
[2016-08-04] MEDS: ENOXAPARIN 40 MG/0.4 ML SYRINGE SUBCUT SCH (09:05)
[2016-08-04] MEDS: DOCUSATE SODIUM 100 MG CAPSULE PO SCH ×2 (09:06→21:33)
[2016-08-04] MEDS: ATENOLOL 25 MG TABLET PO SCH ×2 (09:06→21:33)
[2016-08-04] MEDS: PANTOPRAZOLE 40 MG TABLET PO SCH (09:06)
[2016-08-04] MEDS: FLUTICASONE/SALMETEROL 500-50 DISKUS 14 DOSE INH SCH ×2 (09:06→21:33)
[2016-08-04] MEDS: NYSTATIN 500,000 UNIT/5 ML UDCUP SWISH/SWAL SCH ×4 (09:06→21:33)
[2016-08-04] MEDS: DESITIN 4OZ/NYSTATIN 15 GRAM MIXTURE PASTE TOP SCH ×2 (09:07→21:34)
[2016-08-04] MEDS: DICLOFENAC 1.3% PATCH 5/PACK TRANSDERM SCH ×2 (09:07→21:34)
[2016-08-04] MEDS: POLYETHYLENE GLYCOL POWDER 17 GM PACK PO SCH (09:08)
[2016-08-04] MEDS: FINASTERIDE 5 MG TABLET PO SCH (09:09)
--- NOTE | 2016-08-04 14:45 | Internal Med Progress Note ---
Assessment and Plan (1) Acute and chronic respiratory failure Status: Resolved Current Visit: Yes Qualifiers: Respiratory failure complication: hypoxia Qualified Code(s): J96.21 - Acute and chronic respiratory failure with hypoxia (2) Pulmonary hypertension Status: Chronic Current Visit: Yes (3) Sarcoidosis Status: Chronic Current Visit: Yes (4) Sinus tachycardia Status: Resolved Current Visit: Yes (5) Anemia Status: Chronic Current Visit: Yes Qualifiers: Anemia type: iron deficiency Iron deficiency anemia type: inadequate dietary iron intake Qualified Code(s): D50.8 - Other iron deficiency anemias (6) Pneumonia Status: Acute Current Visit: Yes Internal Medicine - PN: Subj Interval history: This is a 71 year old male with history of sarcoid lung disease, pulmonary fibrosis, severe pulmonary hypertension, home oxygen for hypoxia, hypotension, who presented to ER with acute coughing/bronchospasm and mucus plug. He has since gone into respiratory failure and had to be intubated. He had CPAP trial today for three hours. Likely will be difficult to wean him off ventilator. His lung disease has been treated in [place] over last few years. He is now extubated much sooner than expected and doing well. He will have swallow eval in the morning if needed. He is doing well with soft solids. NG tube pulled this morning. Oxygen sats are low 90s on high flow. Doing better and sitting up to eat while on rounds. Discussed case with brother who is visiting from [facility]. He can be moved out of CCU within a day or two. He has been moved to [facility] floor and is fatigued today, but overall better. Pneumothorax improved on x-ray. Still having breathing issues and rhonchi on exam. Continuing treatment. Exam (Progress Note) - Constitutional Vitals: Period Temp Pulse Resp BP Sys/De Paz Pulse Ox Last 24 Hr 97.6 F-98.7 F 77-95 18-22 114-147/70-86 96-100 General appearance: no acute distress - Respiratory Respiratory exam: Present: prolonged expiratory phase, rhonchi - Cardiovascular Cardiovascular exam: Present: regular rate and rhythm - GI/Abdominal GI/Abdominal exam: Present: soft. Absent: tenderness - Extremities Exam Extremities exam: Absent: edema - Neurological Exam Neurological exam: Present: alert - Psychiatric Psychiatric exam: Present: normal mood - Skin Skin exam: Present: warm Results - Labs CBC & BMP: 08/04/16 04:53 08/04/16 04:53
--- NOTE | 2016-08-04 16:35 | Cardiology Progress Note ---
Assessment and Plan (1) Acute and chronic respiratory failure Status: Resolved Assessment and plan: See plan of care listed below. Current Visit: Yes Qualifiers: Respiratory failure complication: hypoxia Qualified Code(s): J96.21 - Acute and chronic respiratory failure with hypoxia (2) Pneumonia Status: Acute Assessment and plan: See plan of care listed below. Current Visit: Yes (3) Sinus tachycardia Status: Resolved Assessment and plan: See plan of care listed below. Current Visit: Yes (4) Pulmonary hypertension Status: Chronic Assessment and plan: See plan of care listed below. Current Visit: Yes (5) Sarcoidosis Status: Chronic Assessment and plan: See plan of care listed below. Current Visit: Yes (6) Hypertension Status: Acute Assessment and plan: See plan of care listed below. Current Visit: Yes Cardiology - PN: Subj Interval history: Quality Liaison: Zamzam to cardiology Dr. Freeman (new) SUMMARY: Mr. Randhawa is a 71 year old male with spondylosis and sarcoid who is admitted with a long process initially diagnosis pneumonia who developed respiratory distress on the floor and was intubated received a dose of epinephrine had sinus tachycardia post procedure. I reviewed his ECGs which was without acute process. He has a pulmonary disease type pattern with incomplete right bundle branch block and atrial abnormality. Cardiology was consulted to see patient for sinus tachycardia. Echocardiogram was performed which revealed left ventricular ejection fraction of 55%. Grade 1 diastolic dysfunction. Normal left ventricular wall thickness. Tricuspid regurgitation velocities suggest a RVSP of 51 mmHg. Patient remains sedated and ventilated in the cardiac care unit. Patient has never seen a project leader previously prior to this admission. July UPDATE - Patient was seen and examined 5E. Patient is sitting up in bed in no acute distress, currently requiring oxygen via nasal cannula. He did well overnight and is without complaints this morning. He reports that he is overall feeling much better. He complains of weakness and have minimal cough. PT has been consulted. Currently, patient is in sinus rhythm with heart rates ranging from 70-80's. No overt arrhythmias or ectopy noted. Blood pressure is well controlled. Labs have been reviewed. At this point, patient is stable from a cardiac standpoint. We will continue current plan of care. Assessment/plan: 1. SINUS TACHYCARDIA - Telemetry was reviewed this morning, patient's heart rate ranging from 70-80's. Continue current plan of care with atenolol. 2. ACUTE RESPIRATORY FAILURE - Resolved. Pulmonary is following. 3. PULMONARY HYPERTENSION - Continue current plan of care. 4. SARCOIDOSIS - Management per attending. 5. PNEUMONIA - Continue current plan of care with IV antibiotics and steroids. Management per attending. 6. HYPERTENSION - Well controlled. Continue current plan of care. Further plan and addendum to follow per Dr. Lea. Exam (Progress Note) - Constitutional Vitals: Period Temp Pulse Resp BP Sys/De Paz Pulse Ox Last 24 Hr 97.9 F-98.7 F 77-95 18-22 114-147/70-86 96-100 Exam: General: Patient is awake and alert in no acute distress. Appears comfortable. HEENT: PERRL, normocephalic, atraumatic. Mucous membranes moist. No jaundice noted. Conjunctiva moist and clear, sclerae anicteric Neck: No JVD/HJR, no thyromegaly or lymphadenopathy noted. Cardiac: Regular rate and rhythm. Murmur auscultated consistent with tricuspid regurgitation. Lungs: Breath sounds continue to improve daily. Only minimal rhonchi auscultated, without wheezing. Requiring oxygen Via nasal cannula. Abdomen: Soft, bowel sounds normoactive. Nontender and nondistended. Extremities: No clubbing, cyanosis noted. No edema noted. Upper extremity pulses 2+. Lower extremity pulses 2+. Capillary refill less than 3 seconds. Skin: No unusual lesions or rashes. No skin breakdown appreciated. Neuro: Awake, alert and oriented 3. Moves all extremities well without hemiparesis or paralysis. No essential tremor is appreciated. Result/EKG - Labs CBC & BMP: 08/04/16 04:53 08/04/16 04:53 Lab Results: I have reviewed the past 24 hour labs Labs: Laboratory Results - last 24 hr 08/04/16 08/04/16 04:53 04:53 WBC 11.4 RBC 4.38 Hgb 12.3 L Hct 37.1 L MCV 84.7 L MCH 28 MCHC 33.2 RDW 13.5 Plt Count 213 D MPV 10.5 Neut % (Auto) 88.7 H Lymph % (Auto) 4.6 L [place] % (Auto) 5.2 Eos % (Auto) 0.0 Baso % (Auto) 0.1 Neut # (Auto) 10.1 H Lymph # (Auto) 0.5 L [place] # (Auto) 0.6 Eos # (Auto) 0.0 Baso # (Auto) 0.0 Total Counted 100 Immature Gran % 1.4 Nucleated RBC % 0.0 Immature Gran # 0.16 Segmented Neutrophils 95 H Lymphocytes 1 L Monocytes 4 Nucleated RBCs # 0.00 Platelet Estimate Normal Hypochromasia 1+ Microcytosis Slight Morphology Comment Sodium 138 Potassium 4.5 Chloride 100 Carbon Dioxide 32 Anion Gap 10.5 BUN 21 H Creatinine 0.60 L GFR Calculation 93 BUN/Creatinine Ratio 35.00 H Glucose 142 H Calculated Osmolality 279.7 Calcium 8.2 L Magnesium 2.3
[2016-08-05] MEDS: ALBUTEROL/IPRATROPIUM 3 ML NEB RESP TX SCH ×6 (02:39→23:36)
[2016-08-05] MEDS: guaiFENesin 200 MG/10 ML UDCUP NG SCH ×4 (03:33→21:23)
[2016-08-05 03:50] LABS: Basophils % 0.1 % (0.0-0.8); Hematocrit 37.2 VOL% (42.0-52.0); Hemoglobin 12.6 GM/DL (14.0-18.0); Immature Granulocytes % 1.4 %; Immature Granulocytes Absolute 0.15 #; Lymphocytes # 0.4 10*3/uL (1.4-4.0); Lymphocytes % 3.4 % (21.2-54.2); Mean Corpuscular HGB Conc 33.9 GM/DL (32-36); Mean Corpuscular Hemoglobin 29 PG (27-34); Mean Corpuscular Volume 84.5 FL (87-102); Mean Platelet Volume 9.9 FL (9.6-12.0); Monocytes # 0.6 10*3/uL (0.11-0.8); Monocytes % 5.1 % (1.7-12.7); Neutrophils # 9.8 10*3/uL (1.4-7.4); Platelet Count 221 T/CUMM (130-400); Red Cell Distribution Width 13.5 % (9.3-17.3); White Blood Count 10.9 T/CUMM (4-12)
[2016-08-05 04:19] LABS: Calcium 8.2 MG/DL (8.5-10.1); Magnesium 2.2 MG/DL (1.8-2.4); Osmolality,Calculated 278.8 MOS/KG (273-304); Potassium 4.1 MMOL/L (3.5-5.1)
[2016-08-05 06:01] LABS: Lymphocytes 2 % (20-55); Myelocytes 1 %; Segmented Neutrophils 95 % (50-85)
[2016-08-05 06:02] LABS: Platelet Estimate Normal; Total Cells Counted 100
[2016-08-05] MEDS: methylPREDNISolone SOD SUC 40 MG/1 ML VIAL IV SCH ×3 (06:23→21:22)
[2016-08-05] MEDS: PIPERACILLIN/TAZOBACTAM 3,375 MG in SODIUM CHLORIDE 0.9% 100 ML IV SCH ×3 (06:23→23:39)
[2016-08-05] MEDS: BUDESONIDE 0.5 MG/2 ML NEB RESP TX SCH ×2 (07:09→19:09)
[2016-08-05] MEDS: DOCUSATE SODIUM 100 MG CAPSULE PO SCH ×2 (08:29→21:23)
[2016-08-05] MEDS: PANTOPRAZOLE 40 MG TABLET PO SCH (08:29)
[2016-08-05] MEDS: ENOXAPARIN 40 MG/0.4 ML SYRINGE SUBCUT SCH (08:29)
[2016-08-05] MEDS: NYSTATIN 500,000 UNIT/5 ML UDCUP SWISH/SWAL SCH ×4 (08:29→21:24)
[2016-08-05] MEDS: FINASTERIDE 5 MG TABLET PO SCH (08:30)
[2016-08-05] MEDS: DICLOFENAC 1.3% PATCH 5/PACK TRANSDERM SCH ×2 (08:30→21:25)
[2016-08-05] MEDS: POLYETHYLENE GLYCOL POWDER 17 GM PACK PO SCH (08:30)
[2016-08-05] MEDS: ATENOLOL 25 MG TABLET PO SCH (08:30)
[2016-08-05] MEDS: DESITIN 4OZ/NYSTATIN 15 GRAM MIXTURE PASTE TOP SCH ×2 (08:30→21:24)
--- NOTE | 2016-08-05 10:54 | Pulmonology Progress Note ---
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 He has a superimposed pneumonia. He has been mechanically ventilated. He is still requiring a Ventimask to adequately oxygenate. He is weak but is starting with physical therapy. No new complaints. Exam (Progress Note) - Constitutional Vitals: Period Temp Pulse Resp BP Sys/De Paz Pulse Ox Last 24 Hr 97.7 F-98.6 F 68-100 18-25 112-122/65-79 94-100 Exam: Patient sitting up in bed with Ventimask on. He is alert and oriented. Vital signs normal. Pupils react to light. Throat is clear. Neck supple no bruits. Chest he has some expiratory rhonchi bilaterally. He is not tight. Heart normal rate and rhythm no murmurs. Abdomen soft nontender no masses. Extremities no clubbing cyanosis or edema. Calves nontender. Results - Labs CBC & BMP: 08/05/16 02:55 08/05/16 02:55 Lab Results: I have reviewed the past 24 hour labs Assessment and Plan (1) Pulmonary hypertension Status: Chronic Assessment and plan: This is secondary to his sarcoid. It was treated with Adcirca but that was not helping him. That was discontinued. Cardiology at [facility] had him on that. 08/05/2016 the pulmonary hypertension is secondary to his postinflammatory pulmonary fibrosis. Current Visit: Yes (2) Acute and chronic respiratory failure Status: Resolved Assessment and plan: Severe hypoxemia which is improved with nasal oxygen. Need to check ABGs. 08/05/2016 requiring Ventimask. Current Visit: Yes Qualifiers: Respiratory failure complication: hypoxia Qualified Code(s): J96.21 - Acute and chronic respiratory failure with hypoxia (3) Pneumonia Status: Acute Assessment and plan: Has very thick yellow sputum. I suspect that this will be a gram-negative 1 so we will add Zosyn. 08/05/16 continuing antibiotics. Current Visit: Yes (4) Sarcoidosis Status: Chronic Assessment and plan: Has had sarcoid over 30 years. Likely it is inactive at present but he is on low-dose prednisone 10 mg every other day. Agree with treating with higher dose of steroids during the exacerbation 08/05/2016 has post inflammatory fibrosis related to the sarcoid. Current Visit: Yes (5) Cervical spondylitis with radiculitis Status: Acute Assessment and plan: He has had multiple injections and takes chronic pain medications. Current Visit: Yes
--- NOTE | 2016-08-05 13:47 | Cardiology Progress Note ---
Assessment and Plan (1) Sinus tachycardia Status: Resolved Assessment and plan: Heart rate is much better. Blood pressure is borderline low Will reduce the atenolol to 25 mg daily We will reassess response to this change in therapy Current Visit: Yes (2) Hypertension Status: Acute Current Visit: Yes (3) Pneumonia Status: Acute Current Visit: Yes (4) Pulmonary hypertension Status: Chronic Current Visit: Yes (5) Sarcoidosis Status: Chronic Current Visit: Yes (6) Acute and chronic respiratory failure Status: Resolved Current Visit: Yes Qualifiers: Respiratory failure complication: hypoxia Qualified Code(s): J96.21 - Acute and chronic respiratory failure with hypoxia Cardiology - PN: Subj Interval history: No chest pain. Less short of breath. Exam (Progress Note) - Constitutional Vitals: Period Temp Pulse Resp BP Sys/De Paz Pulse Ox Last 24 Hr 97.7 F-98.5 F 68-100 18-25 107-122/63-79 94-99 Exam: HEENT: Pupils equal, reactive to light and accommodation Neck: NoJVD or bruit Lungs clear to auscultation Heart: Regular rhythm rate with normal S1 and S2. Apical S4 Abdomen: No hepatosplenomegaly Spine/extremities: No clubbing, cyanosis, or edema Neuro: Nonfocal Psych: No depression or anxiety Result/EKG - Labs CBC & BMP: 08/05/16 02:55 08/05/16 02:55 Labs: Laboratory Results - last 24 hr 08/05/16 08/05/16 02:55 02:55 WBC 10.9 RBC 4.40 Hgb 12.6 L Hct 37.2 L MCV 84.5 L MCH 29 MCHC 33.9 RDW 13.5 Plt Count 221 MPV 9.9 Neut % (Auto) 90.0 H Lymph % (Auto) 3.4 L [place] % (Auto) 5.1 Eos % (Auto) 0.0 Baso % (Auto) 0.1 Neut # (Auto) 9.8 H Lymph # (Auto) 0.4 L [place] # (Auto) 0.6 Eos # (Auto) 0.0 Baso # (Auto) 0.0 Total Counted 100 Immature Gran % 1.4 Nucleated RBC % 0.0 Immature Gran # 0.15 Segmented Neutrophils 95 H Lymphocytes 2 L Monocytes 2 Myelocytes 1 Nucleated RBCs # 0.00 Platelet Estimate Normal Sodium 137 Potassium 4.1 Chloride 99 Carbon Dioxide 30 Anion Gap 12.1 BUN 22 H Creatinine 0.60 L GFR Calculation 93 BUN/Creatinine Ratio 36.00 H Glucose 159 H Calculated Osmolality 278.8 Calcium 8.2 L Magnesium 2.2
--- NOTE | 2016-08-05 17:12 | Family Practice Progress Note ---
Family Practice - PN: Subj Interval history: Patient states that he generally feels better. Sitting up in bed has Ventimask in place. Patient has severe pulmonary fibrosis. Reviewed chart and labs. No new problems identified. Patient has occasional rhonchi in bases bilaterally. Exam is otherwise stable. We will continue present treatment plan Exam (Progress Note) - Constitutional Vitals: Period Temp Pulse Resp BP Sys/De Paz Pulse Ox Last 24 Hr 97.7 F-98.5 F 68-100 18-25 107-125/63-79 94-100 Results - Labs CBC & BMP: 08/05/16 02:55 08/05/16 02:55
[2016-08-06] MEDS: ALBUTEROL/IPRATROPIUM 3 ML NEB RESP TX SCH ×5 (03:17→18:54)
[2016-08-06] MEDS: guaiFENesin 200 MG/10 ML UDCUP NG SCH ×4 (03:37→22:18)
[2016-08-06 04:24] LABS: Basophils % 0.1 % (0.0-0.8); Hematocrit 36.9 VOL% (42.0-52.0); Hemoglobin 12.5 GM/DL (14.0-18.0); Immature Granulocytes % 1.1 %; Immature Granulocytes Absolute 0.11 #; Lymphocytes # 0.3 10*3/uL (1.4-4.0); Lymphocytes % 2.7 % (21.2-54.2); Mean Corpuscular HGB Conc 33.9 GM/DL (32-36); Mean Corpuscular Hemoglobin 29 PG (27-34); Monocytes # 0.5 10*3/uL (0.11-0.8); Monocytes % 5.3 % (1.7-12.7); Neutrophils # 9.1 10*3/uL (1.4-7.4); Neutrophils % 90.8 % (38.7-73.9); Platelet Count 213 T/CUMM (130-400); Red Blood Count 4.34 MC/CUMM (3.8-5.5); Red Cell Distribution Width 13.6 % (9.3-17.3)
[2016-08-06 04:55] LABS: Calcium 8.6 MG/DL (8.5-10.1); Magnesium 2.1 MG/DL (1.8-2.4); Osmolality,Calculated 282.5 MOS/KG (273-304)
[2016-08-06] MEDS: methylPREDNISolone SOD SUC 40 MG/1 ML VIAL IV SCH ×3 (05:16→22:09)
[2016-08-06 06:11] LABS: Lymphocytes 9 % (20-55); Myelocytes 1 %; Platelet Estimate Normal; Segmented Neutrophils 87 % (50-85); Total Cells Counted 100
[2016-08-06] MEDS: PIPERACILLIN/TAZOBACTAM 3,375 MG in SODIUM CHLORIDE 0.9% 100 ML IV SCH ×3 (06:13→22:09)
[2016-08-06] MEDS: BUDESONIDE 0.5 MG/2 ML NEB RESP TX SCH ×2 (07:04→18:58)
[2016-08-06] MEDS: ENOXAPARIN 40 MG/0.4 ML SYRINGE SUBCUT SCH (08:58)
[2016-08-06] MEDS: NYSTATIN 500,000 UNIT/5 ML UDCUP SWISH/SWAL SCH ×4 (08:58→20:50)
[2016-08-06] MEDS: FINASTERIDE 5 MG TABLET PO SCH (08:58)
[2016-08-06] MEDS: DOCUSATE SODIUM 100 MG CAPSULE PO SCH ×2 (08:58→20:50)
[2016-08-06] MEDS: PANTOPRAZOLE 40 MG TABLET PO SCH (08:58)
--- NOTE | 2016-08-06 08:59 | Pulmonology Progress Note ---
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 He has a superimposed pneumonia. He has been mechanically ventilated. He is still requiring a Ventimask to adequately oxygenate. He is weak but is starting with physical therapy. No new complaints. 08/06/2016 patient gets a little dizzy when he stands up. Still short of breath despite his oxygen saturation being in the high 90s on Ventimask. Exam (Progress Note) - Constitutional Vitals: Period Temp Pulse Resp BP Sys/De Paz Pulse Ox Last 24 Hr 97.8 F-98.1 F 77-94 16-20 107-146/63-80 98-100 Exam: Patient sitting up in bed with Ventimask on. He is alert and oriented. Vital signs normal. Pupils react to light. Throat is clear. Neck supple no bruits. Chest he has some expiratory rhonchi bilaterally. He is not tight. Heart normal rate and rhythm no murmurs. Abdomen soft nontender no masses. Extremities no clubbing cyanosis or edema. Calves nontender. Little change from yesterday. Results - Labs CBC & BMP: 08/06/16 02:23 08/06/16 02:23 Lab Results: I have reviewed the past 24 hour labs Assessment and Plan (1) Pulmonary hypertension Status: Chronic Assessment and plan: This is secondary to his sarcoid. It was treated with Adcirca but that was not helping him. That was discontinued. Cardiology at [facility] had him on that. 08/05/2016 the pulmonary hypertension is secondary to his postinflammatory pulmonary fibrosis. 08/06/2016 this of course as to his dyspnea on exertion. Current Visit: Yes (2) Acute and chronic respiratory failure Status: Resolved Assessment and plan: Severe hypoxemia which is improved with nasal oxygen. Need to check ABGs. 08/05/2016 requiring Ventimask. 08/06/2016 still on Ventimask may be able to reduce to nasal oxygen. Current Visit: Yes Qualifiers: Respiratory failure complication: hypoxia Qualified Code(s): J96.21 - Acute and chronic respiratory failure with hypoxia (3) Pneumonia Status: Acute Assessment and plan: Has very thick yellow sputum. I suspect that this will be a gram-negative 1 so we will add Zosyn. 08/05/16 continuing antibiotics. 08/06/2016 continuing empiric antibiotics. No positive cultures. Current Visit: Yes (4) Sarcoidosis Status: Chronic Assessment and plan: Has had sarcoid over 30 years. Likely it is inactive at present but he is on low-dose prednisone 10 mg every other day. Agree with treating with higher dose of steroids during the exacerbation 08/05/2016 has post inflammatory fibrosis related to the sarcoid. Current Visit: Yes (5) Cervical spondylitis with radiculitis Status: Acute Assessment and plan: He has had multiple injections and takes chronic pain medications. Current Visit: Yes
[2016-08-06] MEDS: DICLOFENAC 1.3% PATCH 5/PACK TRANSDERM SCH (09:00)
[2016-08-06] MEDS ORDERED: ATENOLOL 25 MG TABLET PO SCH (09:00)
[2016-08-06] MEDS: POLYETHYLENE GLYCOL POWDER 17 GM PACK PO SCH (09:00)
[2016-08-06] MEDS: DESITIN 4OZ/NYSTATIN 15 GRAM MIXTURE PASTE TOP SCH ×2 (09:01→20:50)
[2016-08-06] MEDS ORDERED: MECLIZINE 25 MG TABLET PO PRN (10:04)
[2016-08-06] MEDS: guaiFENesin/DM ER 600-30 MG TABLET PO SCH ×2 (10:42→20:50)
--- NOTE | 2016-08-06 14:20 | Family Practice Progress Note ---
Family Practice - PN: Subj Interval history: Patient states that he continues to improve. States she becomes weak with ambulation but that would be expected. Still requiring Ventimask. No new problems identified. A.m. labs are stable. Lung saab are clear to auscultation. Will continue present treatment plan Exam (Progress Note) - Constitutional Vitals: Period Temp Pulse Resp BP Sys/De Paz Pulse Ox Last 24 Hr 97.4 F-99.0 F 77-94 16-20 121-146/65-80 98-100 Results - Labs CBC & BMP: 08/06/16 02:23 08/06/16 02:23
--- NOTE | 2016-08-06 17:48 | Cardiology Progress Note ---
Assessment and Plan (1) Sinus tachycardia Status: Resolved Assessment and plan: Heart rate is much better. Blood pressure is borderline low Will reduce the atenolol to 25 mg daily We will reassess response to this change in therapy 08/06/16 His dizziness may the be in her ear or some orthostasis We will hold atenolol as his heart rate is better and his blood pressure is better. Maybe he would be better with a slightly higher blood pressure, less than 130 mmHg We will give a trial of meclizine 25 mg p.o. 3 times daily for 3 doses then as needed Current Visit: Yes (2) Hypertension Status: Acute Current Visit: Yes (3) Pneumonia Status: Acute Current Visit: Yes (4) Pulmonary hypertension Status: Chronic Current Visit: Yes (5) Sarcoidosis Status: Chronic Current Visit: Yes (6) Acute and chronic respiratory failure Status: Resolved Current Visit: Yes Qualifiers: Respiratory failure complication: hypoxia Qualified Code(s): J96.21 - Acute and chronic respiratory failure with hypoxia (7) Dizziness Status: Acute Current Visit: Yes Cardiology - PN: Subj Interval history: No chest pain. Less shortness of breath. He states he has dizziness when he turns around and sits to eat. He says it is like the room is spinning. He has tried meclizine in the past and seen Dr. Mak for this problem. He states Dr. Mak states he does not have an ENT problem. Exam (Progress Note) - Constitutional Vitals: Period Temp Pulse Resp BP Sys/De Paz Pulse Ox Last 24 Hr 97.4 F-99.3 F 79-94 15-20 110-146/65-80 96-100 Exam: HEENT: Pupils equal, reactive to light and accommodation Neck: NoJVD or bruit Lungs clear to auscultation Heart: Regular rhythm rate with normal S1 and S2. Apical S4 Abdomen: No hepatosplenomegaly Spine/extremities: No clubbing, cyanosis, or edema Neuro: Nonfocal Psych: No depression or anxiety Result/EKG - Labs CBC & BMP: 08/06/16 02:23 08/06/16 02:23 Lab Results: I have reviewed the past 24 hour labs Labs: Laboratory Results - last 24 hr 08/06/16 08/06/16 02:23 02:23 WBC 10.0 RBC 4.34 Hgb 12.5 L Hct 36.9 L MCV 85.0 L MCH 29 MCHC 33.9 RDW 13.6 Plt Count 213 MPV 10.0 Neut % (Auto) 90.8 H Lymph % (Auto) 2.7 L [place] % (Auto) 5.3 Eos % (Auto) 0.0 Baso % (Auto) 0.1 Neut # (Auto) 9.1 H Lymph # (Auto) 0.3 L [place] # (Auto) 0.5 Eos # (Auto) 0.0 Baso # (Auto) 0.0 Total Counted 100 Immature Gran % 1.1 Nucleated RBC % 0.0 Immature Gran # 0.11 Segmented Neutrophils 87 H Lymphocytes 9 L Monocytes 3 Myelocytes 1 Nucleated RBCs # 0.00 Platelet Estimate Normal Sickle Cells Sports Physiotherapist Sodium 139 Potassium 4.0 Chloride 101 Carbon Dioxide 29 Anion Gap 13.0 BUN 21 H Creatinine 0.50 L GFR Calculation 101 BUN/Creatinine Ratio 42.00 H Glucose 159 H Calculated Osmolality 282.5 Calcium 8.6 Magnesium 2.1
[2016-08-07] MEDS: ALBUTEROL/IPRATROPIUM 3 ML NEB RESP TX SCH ×7 (00:16→23:40)
[2016-08-07] MEDS: DICLOFENAC 1.3% PATCH 5/PACK TRANSDERM SCH ×3 (04:33→20:30)
[2016-08-07] MEDS: guaiFENesin 200 MG/10 ML UDCUP NG SCH ×4 (04:34→23:12)
[2016-08-07] MEDS: methylPREDNISolone SOD SUC 40 MG/1 ML VIAL IV SCH ×3 (06:12→20:34)
[2016-08-07] MEDS: PIPERACILLIN/TAZOBACTAM 3,375 MG in SODIUM CHLORIDE 0.9% 100 ML IV SCH (06:12)
[2016-08-07 06:20] LABS: Hematocrit 35.3 VOL% (42.0-52.0); Immature Granulocytes Absolute 0.11 #; Lymphocytes # 0.4 10*3/uL (1.4-4.0); Lymphocytes % 3.4 % (21.2-54.2); Mean Corpuscular Hemoglobin 29 PG (27-34); Mean Corpuscular Volume 84.4 FL (87-102); Mean Platelet Volume 9.6 FL (9.6-12.0); Monocytes # 0.9 10*3/uL (0.11-0.8); Monocytes % 8.4 % (1.7-12.7); Neutrophils # 9.4 10*3/uL (1.4-7.4); Neutrophils % 87.2 % (38.7-73.9); Platelet Count 212 T/CUMM (130-400); Red Blood Count 4.18 MC/CUMM (3.8-5.5); Red Cell Distribution Width 13.8 % (9.3-17.3); White Blood Count 10.8 T/CUMM (4-12)
[2016-08-07 06:41] LABS: Osmolality,Calculated 276.8 MOS/KG (273-304)
[2016-08-07 07:13] LABS: Hypochromasia 1+; Lymphocytes 3 % (20-55); Microcytosis Slight; Ovalocytes Slight; Platelet Estimate Adequate; Segmented Neutrophils 91 % (50-85); Total Cells Counted 100
[2016-08-07] MEDS: BUDESONIDE 0.5 MG/2 ML NEB RESP TX SCH ×2 (07:40→19:49)
[2016-08-07] MEDS: ENOXAPARIN 40 MG/0.4 ML SYRINGE SUBCUT SCH (08:34)
[2016-08-07] MEDS: DOCUSATE SODIUM 100 MG CAPSULE PO SCH ×2 (08:35→20:29)
[2016-08-07] MEDS: PANTOPRAZOLE 40 MG TABLET PO SCH (08:35)
[2016-08-07] MEDS: guaiFENesin/DM ER 600-30 MG TABLET PO SCH ×2 (08:35→20:29)
[2016-08-07] MEDS: FINASTERIDE 5 MG TABLET PO SCH (08:35)
[2016-08-07] MEDS: NYSTATIN 500,000 UNIT/5 ML UDCUP SWISH/SWAL SCH ×5 (08:35→20:30)
[2016-08-07] MEDS: POLYETHYLENE GLYCOL POWDER 17 GM PACK PO SCH (08:35)
[2016-08-07] MEDS: DESITIN 4OZ/NYSTATIN 15 GRAM MIXTURE PASTE TOP SCH ×2 (08:39→20:31)
--- NOTE | 2016-08-07 08:39 | Pulmonology Progress Note ---
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 He also has secondary pulmonary hypertension. He has been on low-dose prednisone. Last week he had chest congestion and coughing and came in with some respiratory distress. Over the weekend he had to be intubated. He did have a very elevated white count and is being treated for pneumonia. He had more distress and had to be intubated. He did well on the ventilator and was extubated. He feels like his breathing is doing better now. He had a fairly good weekend and is breathing better. He still has some thick secretions in the morning time that is hard to clear. He is ambulating some and having some loose stools. He has completed 10 days of Zosyn. Overall he looks like he is close to his baseline. Exam (Progress Note) - Constitutional Vitals: Period Temp Pulse Resp BP Sys/De Paz Pulse Ox Last 24 Hr 97.4 F-99.3 F 60-109 15-20 109-130/58-72 95-100 Exam: General appearance: no acute distress (The patient is alert and talking and comfortable. He is sitting up and eating breakfast this morning. He is not in any distress now.) - Head Head exam: Present: normal inspection, normocephalic - Eye Eye exam: Present: EOMI. Absent: scleral icterus Pupils: Present: JUAN - ENT ENT exam: Present: Unremarkable, I do not see any definite thrush. - Neck Neck exam: Present: normal inspection. Absent: lymphadenopathy, thyromegaly - Respiratory Respiratory exam: Present: He has fair breath sounds bilaterally although they are little coarse. He does not have any wheezing and is moving air well. - Cardiovascular Cardiovascular exam: Present: regular rate and rhythm. Absent: gallop, systolic murmur - GI/Abdominal GI/Abdominal exam: Present: normal bowel sounds, soft. Absent: organomegaly, tenderness - Extremities Exam Extremities exam: Absent: calf tenderness, edema, there is no signs of phlebitis. - Neurological Exam Neurological exam: Present: He is moving around a little better although he is still weak. - Skin Skin exam: Present: warm, dry Results - Labs CBC & BMP: 08/07/16 05:28 08/07/16 05:28 Assessment and Plan (1) Pneumonia Status: Acute Assessment and plan: The patient came in with some chest congestion and elevated white count is being treated for pneumonia. Clinically he is doing a little better. He does not have anything on culture. He has completed 10 days of Zosyn. We will stop his IV antibiotics for now. Current Visit: Yes (2) Sarcoidosis Status: Chronic Assessment and plan: Patient has a long history of sarcoidosis with pulmonary fibrosis. He is stable on steroids and antibiotics. Will cut back on his steroids as he is doing much better. Current Visit: Yes (3) Pulmonary hypertension Status: Chronic Assessment and plan: The patient has secondary pulmonary hypertension related to his lung fibrosis. Current Visit: Yes (4) Acute and chronic respiratory failure Status: Resolved Assessment and plan: The patient developed acute respiratory distress on top of his chronic lung problems. He was intubated over the weekend. His oxygenation is much better and his chest x-ray looks better. He is stable off the ventilator. He continues to improve each day and shortness of breath is much better. He still has some trouble with secretions and will try SSKI. Otherwise we will continue with respiratory therapy. Current Visit: Yes Qualifiers: Respiratory failure complication: hypoxia Qualified Code(s): J96.21 - Acute and chronic respiratory failure with hypoxia
[2016-08-07] MEDS: POTASSIUM IODIDE ORAL SOLN 1,000 MG/ML BOTTLE PO SCH ×5 (08:40→20:34)
--- NOTE | 2016-08-07 14:32 | Cardiology Progress Note ---
Assessment and Plan (1) Sinus tachycardia Status: Resolved Assessment and plan: This has resolved. I think this was secondary to his acute illness when he was admitted. We need to carry out no further treatment this regard. Current Visit: Yes (2) Hypertension Status: Chronic Assessment and plan: Blood pressures are stable. Current Visit: Yes (3) Pulmonary hypertension Status: Chronic Assessment and plan: This is a chronic issue followed by pulmonary medicine. Current Visit: Yes (4) Acute and chronic respiratory failure Status: Resolved Assessment and plan: This is improving. Current Visit: Yes Qualifiers: Respiratory failure complication: hypoxia Qualified Code(s): J96.21 - Acute and chronic respiratory failure with hypoxia Cardiology - PN: Subj Interval history: Mr. Guhtrie is doing well and now on a MedSurg floor. He is not on any beta- blockers or other cardiac medication at this time. He just received a DuoNeb therapy and his heart rate stayed in the mid to low 90s during this. His O2 saturations are satisfactory. He has had no angina symptoms or prior cardiac disease. Our plans will be to sign off at this time. Please call us if we can be any further assistance. Exam (Progress Note) - Constitutional Vitals: Period Temp Pulse Resp BP Sys/De Paz Pulse Ox Last 24 Hr 97.4 F-99.3 F 60-109 15-20 109-121/58-72 95-100 Exam: General appearance: thin, no acute distress HEENT exam: normal inspection, atraumatic Neck exam: normal inspection no JVD. No carotid bruit. Trachea is in midline Respiratory/lungs exam: Bilateral expiratory wheezing and increased expiratory phase he though is in no acute respiratory distress. Cardiovascular exam: regular rate and rhythm, no murmur or gallop or rub. No precordial lift. Chest wall exam: nontender GI/Abdominal exam: normal bowel sounds, soft, nontender, no abdominal bruits or pulsatile masses. Extremeties/musculoskeletal: normal inspection without edema or cyanosis. Neurological exam: alert, oriented X3, no focal deficits Psychiatric exam: normal affect, normal mood. Cognitive function is grossly normal. Skin exam: normal color, warm Result/EKG - Labs CBC & BMP: 08/07/16 05:28 08/07/16 05:28 Lab Results: I have reviewed the past 24 hour labs Labs: Laboratory Results - last 24 hr 08/07/16 08/07/16 05:28 05:28 WBC 10.8 RBC 4.18 Hgb 12.0 L Hct 35.3 L MCV 84.4 L MCH 29 MCHC 34.0 RDW 13.8 Plt Count 212 MPV 9.6 Neut % (Auto) 87.2 H Lymph % (Auto) 3.4 L [place] % (Auto) 8.4 Eos % (Auto) 0.0 Baso % (Auto) 0.0 Neut # (Auto) 9.4 H Lymph # (Auto) 0.4 L [place] # (Auto) 0.9 H Eos # (Auto) 0.0 Baso # (Auto) 0.0 Total Counted 100 Immature Gran % 1.0 Nucleated RBC % 0.0 Immature Gran # 0.11 Segmented Neutrophils 91 H Lymphocytes 3 L Monocytes 6 Nucleated RBCs # 0.00 Platelet Estimate Adequate Hypochromasia 1+ Microcytosis Slight Ovalocytes Slight Morphology Comment Sodium 137 Potassium 4.0 Chloride 101 Carbon Dioxide 28 Anion Gap 12.0 BUN 16 Creatinine 0.50 L GFR Calculation 99 BUN/Creatinine Ratio 32.00 H Glucose 146 H Calculated Osmolality 276.8 Calcium 8.0 L Magnesium 2.0
--- NOTE | 2016-08-07 20:04 | Internal Med Progress Note ---
Assessment and Plan (1) Acute and chronic respiratory failure Status: Resolved Current Visit: Yes Qualifiers: Respiratory failure complication: hypoxia Qualified Code(s): J96.21 - Acute and chronic respiratory failure with hypoxia (2) Pulmonary hypertension Status: Chronic Current Visit: Yes (3) Sarcoidosis Status: Chronic Current Visit: Yes (4) Sinus tachycardia Status: Resolved Current Visit: Yes (5) Anemia Status: Chronic Current Visit: Yes Qualifiers: Anemia type: iron deficiency Iron deficiency anemia type: inadequate dietary iron intake Qualified Code(s): D50.8 - Other iron deficiency anemias (6) Pneumonia Status: Acute Current Visit: Yes Internal Medicine - PN: Subj Interval history: This is a 71 year old male with history of sarcoid lung disease, pulmonary fibrosis, severe pulmonary hypertension, home oxygen for hypoxia, hypotension, who presented to ER with acute coughing/bronchospasm and mucus plug. He has since gone into respiratory failure and had to be intubated. He had CPAP trial today for three hours. Likely will be difficult to wean him off ventilator. His lung disease has been treated in [place] over last few years. He is now extubated much sooner than expected and doing well. He will have swallow eval in the morning if needed. He is doing well with soft solids. NG tube pulled this morning. Oxygen sats are low 90s on high flow. Doing better and sitting up to eat while on rounds. Discussed case with brother who is visiting from [facility]. He can be moved out of CCU within a day or two. He has been moved to med surg floor and is fatigued today, but overall better. Pneumothorax improved on x-ray. Still having breathing issues and rhonchi on exam. Continuing treatment. August 07, he is breathing better and rhonchi resolved with current treatment. Nebulized meds have helped. Will discharge to home tomorrow to [facility]. Exam (Progress Note) - Constitutional Vitals: Period Temp Pulse Resp BP Sys/De Paz Pulse Ox Last 24 Hr 98 F-98.9 F 90-109 17-20 109-121/58-72 95-99 Exam: General appearance: no acute distress - Respiratory Respiratory exam: Present: clear to auscultation - Cardiovascular Cardiovascular exam: Present: regular rate and rhythm - GI/Abdominal GI/Abdominal exam: Present: soft. Absent: tenderness - Extremities Exam Extremities exam: Absent: edema - Neurological Exam Neurological exam: Present: alert - Psychiatric Psychiatric exam: Present: normal mood - Skin Skin exam: Present: warm Results - Labs CBC & BMP: 08/07/16 05:28 08/07/16 05:28
--- NOTE | 2016-08-07 21:31 | Discharge Summary ---
<Priscilla Farnsworth - Last Filed: 08/08/16 00:36> Hospital Course - Hospital Course Hospital Course: This is a 71 year old male with history of sarcoid lung disease, pulmonary fibrosis, severe pulmonary hypertension, home oxygen for hypoxia, hypotension, who presented to ER with acute coughing/bronchospasm and mucus plug. He has since gone into respiratory failure and had to be intubated. His lung disease has been treated in [place] over last few years. He has responded favorably to breathing treatments and corticosteroid. He will be discharged to Home Health for PT/OT. Diagnosis - Discharge Diagnosis (1) Acute and chronic respiratory failure Status: Chronic (2) Pulmonary hypertension Status: Chronic (3) Sarcoidosis Status: Chronic (4) Sinus tachycardia Status: Resolved (5) Anemia Status: Chronic (6) Pneumonia Status: Resolved Specialty Discharge - Follow Up or Referrals Follow up with: Priscilla Farnsworth DO [Primary Care Provider] - Damian Farnsworth MD [Physician] - Discharge Plan - Discharge Data Disposition: Home Health Service Condition at Discharge: Stable Discharge Diet: regular diet Activity: as per physical therapy, increase activity as tolerated, wear oxygen at all times - Discharge Medications New Albuterol/Ipratropium Neb [Duoneb] 3 ml RESP TX RT Q4H #120 ALPRAZolam [Xanax] 0.5 mg PO TID PRN #60 tablet PRN Reason: Anxiety Budesonide Neb [Pulmicort Respules] 0.5 mg RESP TX RT BID #60 Cefuroxime Tab [Ceftin] 250 mg PO BID #14 tablet Docusate Sodium Cap [Colace Cap] 100 mg PO BID capsule Ferrous Sulfate Tab [Feosol Original Tab] 325 mg PO DAILY tablet guaiFENesin/DM ER 600-30 [Mucinex Dm 600-30 MG] 1 tablet PO BID tablet Meclizine [Antivert] 25 mg PO TID PRN #60 tablet PRN Reason: Dizziness Methocarbamol Tab [Robaxin Tab] 750 mg PO Q6HR PRN #60 tablet PRN Reason: Muscle Spasm Phenol 1.4% Throat [place] [Chloraseptic [place]] 5 spray PO Q2H PRN bottle PRN Reason: Sore Throat Polyethylene Glycol Powder [Miralax] 17 gm PO DAILY Diclofenac 1% Gel [Voltaren 1% Gel] 1 applic TOP TID #100 gm guaiFENesin LIQUID [Robitussin] 10 ml NG Q6H Potassium Iodide Oral Soln [Sski] 600 mg PO TID bottle Continue Cyanocobalamin (Vitamin B-12) [Vitamin B-12] 1,000 mcg PO DAILY Finasteride 5 mg PO DAILY predniSONE TAB [PredniSONE] 10 mg PO Q48H Dexlansoprazole [Dexilant] 60 mg PO DAILY Cholecalciferol (Vitamin D3) [Vitamin D3] 400 unit PO DAILY guaiFENesin [Mucinex] 600 mg PO BID Albuterol Neb [Proventil Neb] 2.5 mg RESP TX Q6H PRN PRN Reason: Shortness Of Breath/Wheezing Discontinued Fluticasone/Salmeterol 500-50 [Advair 500-50] 1 puff INH BID - Follow Up or Referral Follow Up: Priscilla Farnsworth DO [Primary Care Provider] - Damian Farnsworth MD [Physician] - - Forms/Instructions Instructions: Cefuroxime (By mouth), Alprazolam (By mouth), Albuterol (By breathing), Budesonide (By breathing) Additional Discharge Instructions: Follow up with Dr. Chay Farnsworth within 2 weeks in clinic. Follow up with Dr. Damian Farnsworth within 4 weeks in clinic. Exam - Constitutional Vitals: Period Temp Pulse Resp BP Sys/De Paz Pulse Ox Last 24 Hr 97.3 F-98.8 F 80-103 16-20 97-121/55-78 90-100 Exam: General appearance: no acute distress - Respiratory Respiratory exam: Present: clear to auscultation - Cardiovascular Cardiovascular exam: Present: regular rate and rhythm - GI/Abdominal GI/Abdominal exam: Present: soft. Absent: tenderness - Extremities Exam Extremities exam: Absent: edema - Neurological Exam Neurological exam: Present: alert - Psychiatric Psychiatric exam: Present: normal mood - Skin Skin exam: Present: warm Discharge Results Labs on day of discharge: Labs from last 24 hours 08/08/16 04:03 Sodium 139 Potassium 3.7 Chloride 101 Carbon Dioxide 30 Anion Gap 11.7 BUN 17 Creatinine 0.40 L GFR Calculation 109 BUN/Creatinine Ratio 42.00 H Glucose 125 H Calculated Osmolality 279.5 Calcium 8.2 L Total Bilirubin 0.80 AST 8 ALT 30 Alkaline Phosphatase 65 Total Protein 4.9 L Albumin 2.5 L Globulin 2.4 Albumin/Globulin Ratio 1.0 L DS: Provider Date of admission: 07/27/16 19:54 Primary care physician: Priscilla Farnsworth DO Attending physician on admission: Priscilla Farnsworth DO Consults: 07/27/16 19:54 Consult to Case Mgmt/Social Srvs [CONS] Routine Reason for Case Mgmt/Social Srvs: Discharge Planning 07/27/16 21:21 Consult to Pastoral Services [CONS] Routine Comment: Pastoral Screen: Request Medical Supervisor Visit 07/28/16 06:00 Consult to Physician [CONS] Routine Comment: pneumonia sarcoidosis Consulting Provider: Damian Farnsworth Person Notified: KADEEM Date Notified: 07/28/16 Time Notified: 09:19 07/29/16 19:42 Consult to Physician [CONS] Routine Comment: Tachycardia after respiratory arrest Consulting Provider: Cardiology - [facility] Person Notified: MD toney 07/30/16 08:30 Consult to Dietitian [CONS] Routine Reason for Dietitian: TF-Initiate/Manage 08/01/16 19:29 Consult to Physical Therapy [CONS] Routine Reason for Physical Therapy: Evaluate and Treat Discharging clinician: Priscilla Farnsworth DO Expected date of discharge: 08/08/16 <Damian Farnsworth - Last Filed: 08/08/16 08:54> Diagnosis - Discharge Diagnosis (1) Pneumonia Status: Resolved (2) Sarcoidosis Status: Chronic (3) Pulmonary hypertension Status: Chronic (4) Acute and chronic respiratory failure Status: Chronic
[2016-08-08] MEDS: ALBUTEROL/IPRATROPIUM 3 ML NEB RESP TX SCH ×2 (03:12→07:42)
[2016-08-08 05:13] LABS: Albumin 2.5 G/DL (3.4-5.0); Bilirubin,Total 0.8 MG/DL (0.2-1.0); Calcium 8.2 MG/DL (8.5-10.1); Osmolality,Calculated 279.5 MOS/KG (273-304); Potassium 3.7 MMOL/L (3.5-5.1); Total Protein 4.9 G/DL (6.4-8.3)
[2016-08-08] MEDS: guaiFENesin 200 MG/10 ML UDCUP NG SCH ×2 (06:10→09:47)
[2016-08-08] MEDS: ENOXAPARIN 40 MG/0.4 ML SYRINGE SUBCUT SCH (06:51)
[2016-08-08] MEDS: BUDESONIDE 0.5 MG/2 ML NEB RESP TX SCH (07:48)
[2016-08-08 08:19] VITALS: BP 102/60
[2016-08-08] MEDS: methylPREDNISolone SOD SUC 40 MG/1 ML VIAL IV SCH (08:42)
[2016-08-08] MEDS: POLYETHYLENE GLYCOL POWDER 17 GM PACK PO SCH (08:43)
[2016-08-08] MEDS: DOCUSATE SODIUM 100 MG CAPSULE PO SCH (08:44)
[2016-08-08] MEDS: DESITIN 4OZ/NYSTATIN 15 GRAM MIXTURE PASTE TOP SCH (08:44)
[2016-08-08] MEDS: PANTOPRAZOLE 40 MG TABLET PO SCH (08:44)
[2016-08-08] MEDS: guaiFENesin/DM ER 600-30 MG TABLET PO SCH (08:44)
[2016-08-08] MEDS: DICLOFENAC 1.3% PATCH 5/PACK TRANSDERM SCH (08:44)
[2016-08-08] MEDS: FINASTERIDE 5 MG TABLET PO SCH (08:44)
[2016-08-08] MEDS: NYSTATIN 500,000 UNIT/5 ML UDCUP SWISH/SWAL SCH (08:44)
[2016-08-08] MEDS: POTASSIUM IODIDE ORAL SOLN 1,000 MG/ML BOTTLE PO SCH (08:46)
--- NOTE | 2016-08-08 08:53 | Pulmonology Progress Note ---
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 He also has secondary pulmonary hypertension. He has been on low-dose prednisone. Last week he had chest congestion and coughing and came in with some respiratory distress. Over the weekend he had to be intubated. He did have a very elevated white count and is being treated for pneumonia. He had more distress and had to be intubated. He did well on the ventilator and was extubated. He feels like his breathing is doing better now. He had a fairly good weekend and is breathing better. Last night he did well and said he slept better. He is walking around a little more and having less shortness of breath. His cough is better. He does want to go home today. Exam (Progress Note) - Constitutional Vitals: Period Temp Pulse Resp BP Sys/De Paz Pulse Ox Last 24 Hr 97.3 F-98.8 F 80-103 16-20 97-121/55-78 90-100 Exam: General appearance: no acute distress (The patient is alert and talking and comfortable. He is eating well and looks comfortable.) - Head Head exam: Present: normal inspection, normocephalic - Eye Eye exam: Present: EOMI. Absent: scleral icterus Pupils: Present: JUAN - ENT ENT exam: Present: Unremarkable, I do not see any definite thrush. - Neck Neck exam: Present: normal inspection. Absent: lymphadenopathy, thyromegaly - Respiratory Respiratory exam: Present: He has good breath sounds bilaterally without any definite rales or wheezing now. Breath sounds are coarse in the upper lobes. - Cardiovascular Cardiovascular exam: Present: regular rate and rhythm. Absent: gallop, systolic murmur - GI/Abdominal GI/Abdominal exam: Present: normal bowel sounds, soft. Absent: organomegaly, tenderness - Extremities Exam Extremities exam: Absent: calf tenderness, edema, there is no signs of phlebitis. - Neurological Exam Neurological exam: Present: He is moving around a little better although he is still weak. - Skin Skin exam: Present: warm, dry Results - Labs CBC & BMP: 08/07/16 05:28 08/08/16 04:03 Assessment and Plan (1) Pneumonia Status: Resolved Assessment and plan: The patient came in with some chest congestion and elevated white count is being treated for pneumonia. Clinically he is doing a little better. He does not have anything on culture. He has completed 10 days of Zosyn. We will stop his IV antibiotics for now. Clinically he is much improved and wants to go home. Current Visit: Yes (2) Sarcoidosis Status: Chronic Assessment and plan: Patient has a long history of sarcoidosis with pulmonary fibrosis. He is stable on steroids and antibiotics. Will cut back on his steroids as he is doing much better. He does have home oxygen. Current Visit: Yes (3) Pulmonary hypertension Status: Chronic Assessment and plan: The patient has secondary pulmonary hypertension related to his lung fibrosis. Current Visit: Yes (4) Acute and chronic respiratory failure Status: Chronic Assessment and plan: The patient developed acute respiratory distress on top of his chronic lung problems. He was intubated over the weekend. His oxygenation is much better and his chest x-ray looks better. He is stable off the ventilator. He continues to improve each day and shortness of breath is much better. He still has some trouble with secretions and will try SSKI. He says he is breathing better and wants to go home. Current Visit: Yes Qualifiers: Respiratory failure complication: hypoxia Qualified Code(s): J96.21 - Acute and chronic respiratory failure with hypoxia Specialty Discharge - Follow Up or Referrals Follow up with: Priscilla Farnsworth DO [Primary Care Provider] - Damian Farnsworth MD [Physician] -
[2016-08-08] MEDS ORDERED: predniSONE 20 MG TABLET PO SCH (09:00)
[2016-08-08] MEDS ORDERED: FERROUS SULFATE 325 MG TABLET PO SCH (09:00)
== END 2016-08-08 11:01 | disposition home health service (06) | DRG 208 ==
LOC: EDUNIT# → EDBD → N.ED 19:24 → N.EDINP 19:54 → N.2E 21:00 → N.CC 07-29 19:22 → N.5E 08-03 15:34
PROVIDERS: ADMIT Internal Medicine; ATTEND Internal Medicine

== ENCOUNTER 2017-05-11 12:06 | Inpatient (IN) ==
[2017-05-11 12:58] LABS: Basophils # 0.1 10*3/uL (0.0-0.2); Basophils % 0.8 % (0.0-0.8); Eosinophils % 10.8 % (0.00-10.9); Hematocrit 39.5 VOL% (42.0-52.0); Hemoglobin 13.4 GM/DL (14.0-18.0); Immature Granulocytes % 0.3 %; Immature Granulocytes Absolute 0.03 #; Lymphocytes # 1.4 10*3/uL (1.4-4.0); Lymphocytes % 14.8 % (21.2-54.2); Mean Corpuscular HGB Conc 33.9 GM/DL (32-36); Mean Corpuscular Hemoglobin 30 PG (27-34); Mean Corpuscular Volume 89.2 FL (87-102); Mean Platelet Volume 9.7 FL (9.6-12.0); Monocytes # 0.7 10*3/uL (0.11-0.8); Monocytes % 7.2 % (1.7-12.7); Neutrophils # 6.3 10*3/uL (1.4-7.4); Neutrophils % 66.1 % (38.7-73.9); Platelet Count 209 T/CUMM (130-400); Red Blood Count 4.43 MC/CUMM (3.8-5.5); Red Cell Distribution Width 13.2 % (9.3-17.3); White Blood Count 9.5 T/CUMM (4-12)
[2017-05-11 13:17] LABS: Albumin 3.4 G/DL (3.4-5.0); Bilirubin,Total 0.5 MG/DL (0.2-1.0); Calcium 8.9 MG/DL (8.5-10.1); Osmolality,Calculated 279.7 MOS/KG (273-304); Potassium 4.2 MMOL/L (3.5-5.1); Total Protein 6.8 G/DL (6.4-8.3)
[2017-05-11 13:19] LABS: Lactic Acid 1.1 MMOL/L (0.4-2.0)
[2017-05-11] MEDS ORDERED: metroNIDAZOLE INJ 500 MG in PREMIX 1 EACH IV STA (15:14)
[2017-05-11] MEDS ORDERED: cefTRIAXone 1,000 MG in SODIUM CHLORIDE 0.9% 100 ML IV STA (15:14)
[2017-05-11] MEDS ORDERED: cefTRIAXone 1,000 MG VIAL ONE (15:22)
[2017-05-11] MEDS ORDERED: metroNIDAZOLE 500 MG/100 ML PREMIX IV ONE (15:23)
[2017-05-11] MEDS ORDERED: ACETAMINOPHEN 325 MG TABLET PO PRN (15:37)
[2017-05-11] MEDS: SODIUM CHLORIDE 0.45% 1,000 ML IV SCH (17:00)
[2017-05-11] MEDS: ENOXAPARIN 40 MG/0.4 ML SYRINGE SUBCUT SCH (17:34)
[2017-05-11] MEDS: DOCUSATE SODIUM 100 MG CAPSULE PO SCH (20:47)
[2017-05-11] MEDS: ALBUTEROL/IPRATROPIUM 3 ML NEB RESP TX SCH (22:56)
[2017-05-11] MEDS: FORMOTEROL 20 MCG/2 ML NEB RESP TX SCH (22:56)
[2017-05-11] MEDS: metroNIDAZOLE INJ 500 MG in PREMIX 1 EACH IV SCH (23:22)
[2017-05-12] MEDS: ALBUTEROL/IPRATROPIUM 3 ML NEB RESP TX SCH ×5 (03:30→21:14)
[2017-05-12 06:47] LABS: Basophils # 0.1 10*3/uL (0.0-0.2); Basophils % 0.8 % (0.0-0.8); Eosinophils # 0.7 10*3/uL (0.0-0.87); Eosinophils % 8.8 % (0.00-10.9); Hematocrit 33.2 VOL% (42.0-52.0); Hemoglobin 11.5 GM/DL (14.0-18.0); Immature Granulocytes % 0.5 %; Immature Granulocytes Absolute 0.04 #; Lymphocytes # 1.5 10*3/uL (1.4-4.0); Lymphocytes % 18.4 % (21.2-54.2); Mean Corpuscular HGB Conc 34.6 GM/DL (32-36); Mean Corpuscular Hemoglobin 30 PG (27-34); Mean Corpuscular Volume 86.9 FL (87-102); Mean Platelet Volume 9.8 FL (9.6-12.0); Monocytes # 1.1 10*3/uL (0.11-0.8); Monocytes % 13.3 % (1.7-12.7); Neutrophils # 4.6 10*3/uL (1.4-7.4); Neutrophils % 58.2 % (38.7-73.9); Platelet Count 181 T/CUMM (130-400); Red Blood Count 3.82 MC/CUMM (3.8-5.5); Red Cell Distribution Width 13.2 % (9.3-17.3); White Blood Count 7.9 T/CUMM (4-12)
[2017-05-12 07:12] LABS: Alanine Aminotransferase 13 U/L (16-61); Alkaline Phosphatase 62 U/L (45-117); Aspartate Amino Transferase 12 U/L (0-37); Bilirubin,Total < 0.39 MG/DL (0.2-1.0); Blood Urea Nitrogen 20 MG/DL (7-18); Calcium 8.2 MG/DL (8.5-10.1); Glucose 93 MG/DL (74-106); Osmolality,Calculated 277.7 MOS/KG (273-304); Potassium 3.4 MMOL/L (3.5-5.1); Sodium 138 MMOL/L (136-145); Total Protein 5.8 G/DL (6.4-8.3)
[2017-05-12] MEDS: ONDANSETRON 4 MG/2 ML VIAL IV PRN ×3 (07:20→23:26)
[2017-05-12] MEDS: FLUTICASONE 50 MCG NASAL SPRAY 16 GM BOTTLE BOTH NARES SCH ×3 (07:21→20:49)
[2017-05-12] MEDS: POLYETHYLENE GLYCOL POWDER 17 GM PACK PO SCH (07:25)
[2017-05-12] MEDS: DOCUSATE SODIUM 100 MG CAPSULE PO SCH ×2 (07:25→20:48)
[2017-05-12] MEDS: MIDODRINE 5 MG TABLET PO SCH (07:25)
[2017-05-12] MEDS: FEXOFENADINE 60 MG TABLET PO SCH (07:25)
[2017-05-12] MEDS: ASPIRIN EC 81 MG TABLET PO SCH (07:25)
[2017-05-12] MEDS: PANTOPRAZOLE 40 MG TABLET PO SCH (07:25)
[2017-05-12] MEDS: FORMOTEROL 20 MCG/2 ML NEB RESP TX SCH ×2 (07:55→21:14)
[2017-05-12] MEDS: BUDESONIDE 0.5 MG/2 ML NEB RESP TX SCH ×2 (07:55→21:15)
[2017-05-12] MEDS: metroNIDAZOLE INJ 500 MG in PREMIX 1 EACH IV SCH ×2 (09:30→16:03)
[2017-05-12] MEDS: SODIUM CHLORIDE 0.45% 1,000 ML IV SCH (09:32)
[2017-05-12] MEDS: ENOXAPARIN 40 MG/0.4 ML SYRINGE SUBCUT SCH (16:03)
[2017-05-12] MEDS: cefTRIAXone 1,000 MG in SYRINGE 1 EACH IV SCH (17:37)
[2017-05-12] MEDS: methylPREDNISolone SOD SUC 40 MG/1 ML VIAL IV SCH (23:25)
[2017-05-12] MEDS: KETOROLAC 15 MG/1 ML VIAL IV SCH (23:27)
[2017-05-13] MEDS: metroNIDAZOLE INJ 500 MG in PREMIX 1 EACH IV SCH ×3 (00:34→16:17)
[2017-05-13] MEDS: SODIUM CHLORIDE 0.45% 1,000 ML IV SCH ×3 (00:44→16:20)
[2017-05-13] MEDS: ALBUTEROL/IPRATROPIUM 3 ML NEB RESP TX SCH ×7 (01:36→23:26)
[2017-05-13] MEDS: KETOROLAC 15 MG/1 ML VIAL IV SCH ×3 (05:41→18:05)
[2017-05-13 06:18] LABS: Basophils % 0.2 % (0.0-0.8); Hematocrit 30.8 VOL% (42.0-52.0); Hemoglobin 10.9 GM/DL (14.0-18.0); Immature Granulocytes % 0.6 %; Immature Granulocytes Absolute 0.03 #; Lymphocytes # 0.4 10*3/uL (1.4-4.0); Mean Corpuscular HGB Conc 35.4 GM/DL (32-36); Mean Corpuscular Hemoglobin 30 PG (27-34); Mean Corpuscular Volume 85.8 FL (87-102); Mean Platelet Volume 9.8 FL (9.6-12.0); Monocytes # 0.2 10*3/uL (0.11-0.8); Monocytes % 3.8 % (1.7-12.7); Neutrophils # 4.6 10*3/uL (1.4-7.4); Neutrophils % 87.4 % (38.7-73.9); Platelet Count 165 T/CUMM (130-400); Red Blood Count 3.59 MC/CUMM (3.8-5.5); White Blood Count 5.3 T/CUMM (4-12)
[2017-05-13 06:45] LABS: Calcium 7.9 MG/DL (8.5-10.1); Osmolality,Calculated 267.7 MOS/KG (273-304); Potassium 3.5 MMOL/L (3.5-5.1)
[2017-05-13] MEDS: BUDESONIDE 0.5 MG/2 ML NEB RESP TX SCH ×2 (07:56→23:25)
[2017-05-13] MEDS: FORMOTEROL 20 MCG/2 ML NEB RESP TX SCH ×2 (07:56→23:25)
[2017-05-13] MEDS: MIDODRINE 5 MG TABLET PO SCH (08:44)
[2017-05-13] MEDS: FEXOFENADINE 60 MG TABLET PO SCH (08:44)
[2017-05-13] MEDS: DOCUSATE SODIUM 100 MG CAPSULE PO SCH ×2 (08:44→20:32)
[2017-05-13] MEDS: ASPIRIN EC 81 MG TABLET PO SCH (08:44)
[2017-05-13] MEDS: PANTOPRAZOLE 40 MG TABLET PO SCH (08:44)
[2017-05-13] MEDS: ONDANSETRON 4 MG/2 ML VIAL IV PRN (08:48)
[2017-05-13] MEDS: FLUTICASONE 50 MCG NASAL SPRAY 16 GM BOTTLE BOTH NARES SCH ×2 (08:50→20:34)
[2017-05-13] MEDS: POLYETHYLENE GLYCOL POWDER 17 GM PACK PO SCH (08:50)
[2017-05-13] MEDS ORDERED: predniSONE 10 MG TABLET PO SCH (09:00)
[2017-05-13] MEDS: methylPREDNISolone SOD SUC 40 MG/1 ML VIAL IV SCH ×2 (13:22→23:31)
[2017-05-13] MEDS: cefTRIAXone 1,000 MG in SYRINGE 1 EACH IV SCH (16:13)
[2017-05-13] MEDS: ENOXAPARIN 40 MG/0.4 ML SYRINGE SUBCUT SCH (16:14)
[2017-05-13] MEDS ORDERED: BISACODYL 10 MG SUPP RECTAL PRN (21:40)
[2017-05-13] MEDS ORDERED: FUROSEMIDE 20 MG/2 ML VIAL IV ONE (22:11)
[2017-05-13] MEDS ORDERED: METOPROLOL TARTRATE 25 MG TABLET PO ONE (23:00)
[2017-05-13] MEDS ORDERED: POTASSIUM CHLORIDE 20 MEQ TABLET PO ONE (23:00)
[2017-05-14] MEDS: KETOROLAC 15 MG/1 ML VIAL IV SCH ×4 (00:02→17:23)
[2017-05-14] MEDS: metroNIDAZOLE INJ 500 MG in PREMIX 1 EACH IV SCH ×3 (00:16→16:40)
[2017-05-14] MEDS: SODIUM CHLORIDE 0.45% 1,000 ML IV SCH (00:20)
[2017-05-14] MEDS: ALBUTEROL/IPRATROPIUM 3 ML NEB RESP TX SCH ×6 (03:13→23:41)
[2017-05-14 05:55] LABS: Basophils % 0.1 % (0.0-0.8); Hematocrit 31.7 VOL% (42.0-52.0); Hemoglobin 11.1 GM/DL (14.0-18.0); Immature Granulocytes % 0.4 %; Immature Granulocytes Absolute 0.03 #; Lymphocytes # 0.5 10*3/uL (1.4-4.0); Lymphocytes % 7.2 % (21.2-54.2); Mean Corpuscular Hemoglobin 30 PG (27-34); Mean Corpuscular Volume 86.1 FL (87-102); Monocytes # 0.3 10*3/uL (0.11-0.8); Monocytes % 3.9 % (1.7-12.7); Neutrophils # 6.1 10*3/uL (1.4-7.4); Neutrophils % 88.4 % (38.7-73.9); Platelet Count 170 T/CUMM (130-400); Red Blood Count 3.68 MC/CUMM (3.8-5.5); Red Cell Distribution Width 12.8 % (9.3-17.3); White Blood Count 6.9 T/CUMM (4-12)
[2017-05-14 06:23] LABS: Albumin 2.7 G/DL (3.4-5.0); Bilirubin,Total 0.7 MG/DL (0.2-1.0); Calcium 7.7 MG/DL (8.5-10.1); Osmolality,Calculated 258.2 MOS/KG (273-304); Total Protein 5.3 G/DL (6.4-8.3)
[2017-05-14] MEDS: BUDESONIDE 0.5 MG/2 ML NEB RESP TX SCH ×2 (07:21→20:24)
[2017-05-14] MEDS: FORMOTEROL 20 MCG/2 ML NEB RESP TX SCH ×2 (07:21→20:24)
[2017-05-14] MEDS ORDERED: DEXTROSE 50% 25 GM/50 ML VIAL IV PRN (09:00)
[2017-05-14] MEDS ORDERED: GLUCAGON 1 MG VIAL IM PRN (09:00)
[2017-05-14] MEDS: ONDANSETRON 4 MG/2 ML VIAL IV PRN ×2 (09:51→21:51)
[2017-05-14] MEDS ORDERED: FUROSEMIDE 20 MG/2 ML VIAL IV ONE ×2 (09:59→18:44)
[2017-05-14] MEDS: SODIUM CHLORIDE 0.9% 1,000 ML IV SCH ×2 (10:45→21:43)
[2017-05-14] MEDS ORDERED: PANTOPRAZOLE 40 MG TABLET PO SCH (10:45)
[2017-05-14] MEDS: FLUTICASONE 50 MCG NASAL SPRAY 16 GM BOTTLE BOTH NARES SCH ×2 (11:50→21:44)
[2017-05-14] MEDS: methylPREDNISolone SOD SUC 40 MG/1 ML VIAL IV SCH (11:50)
[2017-05-14] MEDS: POTASSIUM CHLORIDE 20 MEQ TABLET PO SCH (11:52)
[2017-05-14] MEDS: ASPIRIN EC 81 MG TABLET PO SCH (11:52)
[2017-05-14] MEDS: MIDODRINE 5 MG TABLET PO SCH (11:52)
[2017-05-14] MEDS: POLYETHYLENE GLYCOL POWDER 17 GM PACK PO SCH (11:52)
[2017-05-14] MEDS: DOCUSATE SODIUM 100 MG CAPSULE PO SCH ×2 (11:52→21:43)
[2017-05-14] MEDS: METOPROLOL TARTRATE 25 MG TABLET PO SCH ×2 (11:52→21:43)
[2017-05-14] MEDS: FEXOFENADINE 60 MG TABLET PO SCH (11:53)
[2017-05-14] MEDS: PANTOPRAZOLE 40 MG TABLET PO SCH (13:07)
[2017-05-14] MEDS: FAT EMULSION 20% 250 ML IV SCH (15:04)
[2017-05-14 16:08] LABS: Apearance,Urine CLEAR (Clear); Bilirubin,Urine Negative (Negative); Blood, Urine Negative (Negative); Glucose,Urine (UA) Negative (Negative); Ketones,Urine 5 mg/dL (Negative); Mucus,Urine Occasional /LPF (Occasional); Nitrite,Urine Negative (Negative); Protein,Urine Negative; Urine Color Straw (Yellow); Urine Specific Gravity 1.006 (1.001-1.035); Urine Urobilinogen < 2.0 EU/DL (0.2-1.0); WBC,Urine <1 /HPF (0-6)
[2017-05-14] MEDS: cefTRIAXone 1,000 MG in SYRINGE 1 EACH IV SCH (16:40)
[2017-05-14] MEDS ORDERED: DEXTROSE 10% 1,000 ML IV PRN (17:00)
[2017-05-14] MEDS ORDERED: TRACE ELEMENTS (5) 1 ML, MULTIVITAMIN INJ 10 ML in AMINO ACIDS/DEXT/LYTE 4.25-15% 2,000 ML IV SCH (17:00)
[2017-05-14] MEDS: INSULIN REGULAR 100 UNIT/ML SUBCUT SCH ×2 (17:27→18:24)
[2017-05-15] MEDS: INSULIN REGULAR 100 UNIT/ML SUBCUT SCH ×4 (00:04→17:29)
[2017-05-15] MEDS: methylPREDNISolone SOD SUC 40 MG/1 ML VIAL IV SCH ×4 (00:04→23:51)
[2017-05-15] MEDS: KETOROLAC 15 MG/1 ML VIAL IV SCH ×5 (00:22→23:51)
[2017-05-15] MEDS: metroNIDAZOLE INJ 250 MG in IV BAG 1 EACH IV SCH ×6 (00:23→23:52)
[2017-05-15] MEDS: ALBUTEROL/IPRATROPIUM 3 ML NEB RESP TX SCH ×6 (03:02→23:10)
[2017-05-15] MEDS: SODIUM CHLORIDE 0.9% 1,000 ML IV SCH (06:30)
[2017-05-15 07:10] LABS: Calcium 8.2 MG/DL (8.5-10.1); Osmolality,Calculated 259.4 MOS/KG (273-304); Potassium 4.2 MMOL/L (3.5-5.1); Prealbumin 19.1 MG/DL (20-40)
[2017-05-15] MEDS: FORMOTEROL 20 MCG/2 ML NEB RESP TX SCH ×2 (07:37→19:19)
[2017-05-15] MEDS: BUDESONIDE 0.5 MG/2 ML NEB RESP TX SCH ×2 (07:37→19:19)
[2017-05-15] MEDS: DOCUSATE SODIUM 100 MG CAPSULE PO SCH ×2 (08:26→22:01)
[2017-05-15] MEDS: METOPROLOL TARTRATE 25 MG TABLET PO SCH ×2 (08:27→22:01)
[2017-05-15] MEDS: POTASSIUM CHLORIDE 20 MEQ TABLET PO SCH (08:28)
[2017-05-15] MEDS: ASPIRIN EC 81 MG TABLET PO SCH (08:28)
[2017-05-15] MEDS: MIDODRINE 5 MG TABLET PO SCH (08:28)
[2017-05-15] MEDS: FEXOFENADINE 60 MG TABLET PO SCH (08:28)
[2017-05-15] MEDS: BISACODYL 10 MG SUPP RECTAL SCH ×2 (08:28→22:04)
[2017-05-15] MEDS: DEXILANT 60 MG PO SCH (08:31)
[2017-05-15] MEDS: FLUTICASONE 50 MCG NASAL SPRAY 16 GM BOTTLE BOTH NARES SCH ×2 (08:32→22:01)
[2017-05-15] MEDS: POLYETHYLENE GLYCOL POWDER 17 GM PACK PO SCH (08:34)
[2017-05-15] MEDS ORDERED: FUROSEMIDE 20 MG/2 ML VIAL IV SCH ×2 (09:00)
[2017-05-15] MEDS ORDERED: FUROSEMIDE 20 MG/2 ML VIAL IV ONE (09:03)
[2017-05-15 10:03] LABS: Bilirubin,Total 0.5 MG/DL (0.2-1.0); Calcium 7.9 MG/DL (8.5-10.1); Osmolality,Calculated 254.8 MOS/KG (273-304); Potassium 4.7 MMOL/L (3.5-5.1)
[2017-05-15] MEDS: LIDOCAINE 5% PATCH TRANSDERM SCH (11:12)
[2017-05-15] MEDS: cefTRIAXone 1,000 MG in SYRINGE 1 EACH IV SCH (15:17)
[2017-05-15] MEDS: FAT EMULSION 20% 250 ML IV SCH (15:17)
[2017-05-15] MEDS: ALPRAZolam 0.25 MG TABLET PO SCH ×2 (15:18→22:03)
[2017-05-15] MEDS: oxyCODONE/ACETAMINOPHEN 5-325 MG TABLET PO SCH ×2 (15:18→22:03)
[2017-05-15] MEDS: TRACE ELEMENTS (5) 1 ML, MULTIVITAMIN INJ 10 ML in AMINO ACIDS/DEXT/LYTE 4.25-15% 2,000 ML IV SCH (17:29)
[2017-05-15] MEDS: ONDANSETRON 4 MG/2 ML VIAL IV PRN (23:52)
[2017-05-16] MEDS: INSULIN REGULAR 100 UNIT/ML SUBCUT SCH ×4 (00:03→17:25)
[2017-05-16] MEDS: ALBUTEROL/IPRATROPIUM 3 ML NEB RESP TX SCH ×4 (03:45→15:50)
[2017-05-16] MEDS: metroNIDAZOLE INJ 250 MG in IV BAG 1 EACH IV SCH ×3 (05:32→17:56)
[2017-05-16] MEDS: KETOROLAC 15 MG/1 ML VIAL IV SCH ×2 (05:32→12:19)
[2017-05-16] MEDS: ALPRAZolam 0.25 MG TABLET PO SCH ×4 (08:17→23:44)
[2017-05-16] MEDS: oxyCODONE/ACETAMINOPHEN 5-325 MG TABLET PO SCH ×3 (08:17→23:14)
[2017-05-16] MEDS: MIDODRINE 5 MG TABLET PO SCH (08:17)
[2017-05-16] MEDS: METOPROLOL TARTRATE 25 MG TABLET PO SCH ×2 (08:17→22:57)
[2017-05-16] MEDS: ASPIRIN EC 81 MG TABLET PO SCH (08:18)
[2017-05-16] MEDS: POTASSIUM CHLORIDE 20 MEQ TABLET PO SCH (08:18)
[2017-05-16] MEDS: methylPREDNISolone SOD SUC 40 MG/1 ML VIAL IV SCH ×4 (08:19→22:58)
[2017-05-16] MEDS: DOCUSATE SODIUM 100 MG CAPSULE PO SCH ×2 (08:19→22:58)
[2017-05-16] MEDS: FEXOFENADINE 60 MG TABLET PO SCH (08:20)
[2017-05-16] MEDS: LIDOCAINE 5% PATCH TRANSDERM SCH (08:20)
[2017-05-16] MEDS: FLUTICASONE 50 MCG NASAL SPRAY 16 GM BOTTLE BOTH NARES SCH ×2 (08:20→22:59)
[2017-05-16] MEDS: DEXILANT 60 MG PO SCH (08:21)
[2017-05-16] MEDS: POLYETHYLENE GLYCOL POWDER 17 GM PACK PO SCH (08:53)
[2017-05-16] MEDS: BISACODYL 10 MG SUPP RECTAL SCH (08:53)
[2017-05-16] MEDS ORDERED: FUROSEMIDE 40 MG/4 ML VIAL IV SCH (09:00)
[2017-05-16 10:49] LABS: Calcium 8.2 MG/DL (8.5-10.1); Osmolality,Calculated 254.1 MOS/KG (273-304); Potassium 4.5 MMOL/L (3.5-5.1)
[2017-05-16 10:50] LABS: ABG Oxygen Saturation 88.6 % (95-100); ABG PCO2 41.1 MM HG (35-48); ABG PH 7.419 (7.35-7.45); ABG PO2 54.8 MM HG (80-95); ABG TCO2 23.6 MMOL/L (23-27)
[2017-05-16] MEDS ORDERED: SODIUM CHLORIDE 0.9% 1,000 ML IV SCH (11:30)
[2017-05-16] MEDS: BUDESONIDE 0.5 MG/2 ML NEB RESP TX SCH ×2 (12:13→21:08)
[2017-05-16] MEDS: ALBUMIN 25% 25 GM in PREMIX 1 EACH IV SCH ×2 (13:22→22:59)
[2017-05-16] MEDS: FORMOTEROL 20 MCG/2 ML NEB RESP TX SCH ×2 (13:44→21:07)
[2017-05-16] MEDS: FAT EMULSION 20% 250 ML IV SCH (15:23)
[2017-05-16] MEDS: cefTRIAXone 1,000 MG in SYRINGE 1 EACH IV SCH (16:03)
[2017-05-16] MEDS: TRACE ELEMENTS (5) 1 ML, MULTIVITAMIN INJ 10 ML in AMINO ACIDS/DEXT/LYTE 4.25-15% 2,000 ML IV SCH (17:25)
[2017-05-16 19:02] LABS: Osmolality,Calculated 252.1 MOS/KG (273-304); Potassium 4.5 MMOL/L (3.5-5.1)
[2017-05-17 01:01] LABS: ABG Base Excess -1.1 MMOL/L (-2.5-2.5); ABG HCO3 23.5 MMOL/L (20-26); ABG Oxygen Saturation 97.7 % (95-100); ABG PCO2 51.1 MM HG (35-48); ABG PH 7.311 (7.35-7.45); ABG TCO2 23.4 MMOL/L (23-27)
[2017-05-17] MEDS: INSULIN REGULAR 100 UNIT/ML SUBCUT SCH ×4 (01:15→17:43)
[2017-05-17 01:50] LABS: Albumin 4.2 G/DL (3.4-5.0); Bilirubin,Total 0.8 MG/DL (0.2-1.0); Calcium 8.3 MG/DL (8.5-10.1); Osmolality,Calculated 254.1 MOS/KG (273-304); Potassium 4.6 MMOL/L (3.5-5.1); Total Protein 6.6 G/DL (6.4-8.3)
[2017-05-17 01:51] LABS: Prealbumin 21.9 MG/DL (20-40)
[2017-05-17] MEDS: metroNIDAZOLE INJ 250 MG in IV BAG 1 EACH IV SCH ×4 (01:51→21:30)
[2017-05-17 04:11] LABS: ABG Base Excess 0.1 MMOL/L (-2.5-2.5); ABG HCO3 24.4 MMOL/L (20-26); ABG Oxygen Saturation 90.9 % (95-100); ABG PCO2 50.3 MM HG (35-48); ABG PH 7.334 (7.35-7.45); ABG PO2 64.3 MM HG (80-95); ABG TCO2 23.8 MMOL/L (23-27); Allen Test Positive
[2017-05-17] MEDS: methylPREDNISolone SOD SUC 40 MG/1 ML VIAL IV SCH ×4 (04:14→21:31)
[2017-05-17 05:44] LABS: Basophils % 0.1 % (0.0-0.8); Hematocrit 28.8 VOL% (42.0-52.0); Hemoglobin 10.1 GM/DL (14.0-18.0); Immature Granulocytes % 0.4 %; Immature Granulocytes Absolute 0.06 #; Lymphocytes # 0.4 10*3/uL (1.4-4.0); Lymphocytes % 2.9 % (21.2-54.2); Mean Corpuscular HGB Conc 35.1 GM/DL (32-36); Mean Corpuscular Hemoglobin 31 PG (27-34); Mean Platelet Volume 10.6 FL (9.6-12.0); Monocytes # 1.6 10*3/uL (0.11-0.8); Monocytes % 11.7 % (1.7-12.7); Neutrophils # 11.8 10*3/uL (1.4-7.4); Neutrophils % 84.9 % (38.7-73.9); Platelet Count 161 T/CUMM (130-400); Red Blood Count 3.31 MC/CUMM (3.8-5.5); Red Cell Distribution Width 13.2 % (9.3-17.3); White Blood Count 13.9 T/CUMM (4-12)
[2017-05-17 06:11] LABS: Lymphocytes 3 % (20-55); Microcytosis 1+; Ovalocytes Slight; Segmented Neutrophils 87 % (50-85); Total Cells Counted 100
[2017-05-17 06:12] LABS: Platelet Estimate Adequate
[2017-05-17 06:28] LABS: Osmolality,Calculated 255.1 MOS/KG (273-304); Potassium 4.6 MMOL/L (3.5-5.1)
[2017-05-17] MEDS: ALBUMIN 25% 25 GM in PREMIX 1 EACH IV SCH ×3 (06:30→21:31)
[2017-05-17 07:30] LABS: ABG Base Excess -2.7 MMOL/L (-2.5-2.5); ABG HCO3 22.2 MMOL/L (20-26); ABG Oxygen Saturation 99.8 % (95-100); ABG PCO2 66.2 MM HG (35-48); ABG PH 7.211 (7.35-7.45); ABG TCO2 24.6 MMOL/L (23-27)
[2017-05-17] MEDS: PROPOFOL 1,000 MG/100 ML BOTTLE IV SCH ×2 (07:30→18:50)
[2017-05-17] MEDS ORDERED: PROPOFOL 200 MG/20 ML VIAL IV ONE (07:32)
[2017-05-17 07:36] LABS: Basophils % 0.1 % (0.0-0.8); Eosinophils % 0.1 % (0.00-10.9); Hematocrit 29.2 VOL% (42.0-52.0); Hemoglobin 10.2 GM/DL (14.0-18.0); Immature Granulocytes % 2.4 %; Immature Granulocytes Absolute 0.37 #; Lymphocytes # 2.7 10*3/uL (1.4-4.0); Lymphocytes % 17.6 % (21.2-54.2); Mean Corpuscular HGB Conc 34.9 GM/DL (32-36); Mean Corpuscular Hemoglobin 30 PG (27-34); Mean Corpuscular Volume 86.4 FL (87-102); Mean Platelet Volume 10.2 FL (9.6-12.0); Monocytes # 1.8 10*3/uL (0.11-0.8); Monocytes % 11.8 % (1.7-12.7); NRBC # 0.02 10*3/uL; Neutrophils # 10.6 10*3/uL (1.4-7.4); Platelet Count 180 T/CUMM (130-400); Red Blood Count 3.38 MC/CUMM (3.8-5.5); Red Cell Distribution Width 13.4 % (9.3-17.3); White Blood Count 15.5 T/CUMM (4-12)
[2017-05-17] MEDS ORDERED: PROPOFOL 1,000 MG/100 ML BOTTLE IV ONE (07:36)
[2017-05-17] MEDS ORDERED: VECURONIUM 10 MG VIAL IV ONE ×2 (07:50→08:15)
[2017-05-17 07:51] LABS: Calcium 7.9 MG/DL (8.5-10.1); Osmolality,Calculated 264.6 MOS/KG (273-304); Potassium 4.5 MMOL/L (3.5-5.1)
[2017-05-17] MEDS: DOPamine 800 MG/250 ML PREMIX IV SCH (07:56)
[2017-05-17] MEDS: BUDESONIDE 0.5 MG/2 ML NEB RESP TX SCH ×2 (09:10→19:43)
[2017-05-17] MEDS: FORMOTEROL 20 MCG/2 ML NEB RESP TX SCH ×2 (09:10→19:43)
[2017-05-17] MEDS: MIDODRINE 5 MG TABLET PO SCH (12:05)
[2017-05-17] MEDS: POTASSIUM CHLORIDE 20 MEQ TABLET PO SCH (12:05)
[2017-05-17] MEDS: DOCUSATE SODIUM 100 MG CAPSULE PO SCH ×2 (12:05→21:32)
[2017-05-17] MEDS: ALPRAZolam 0.25 MG TABLET PO SCH ×3 (12:05→21:31)
[2017-05-17] MEDS: ASPIRIN EC 81 MG TABLET PO SCH (12:06)
[2017-05-17] MEDS: LIDOCAINE 5% PATCH TRANSDERM SCH (12:06)
[2017-05-17] MEDS: POLYETHYLENE GLYCOL POWDER 17 GM PACK PO SCH (12:06)
[2017-05-17] MEDS: BISACODYL 10 MG SUPP RECTAL SCH (12:06)
[2017-05-17] MEDS: FEXOFENADINE 60 MG TABLET PO SCH (12:06)
[2017-05-17] MEDS: FLUTICASONE 50 MCG NASAL SPRAY 16 GM BOTTLE BOTH NARES SCH ×2 (12:07→21:32)
[2017-05-17] MEDS: METOPROLOL TARTRATE 25 MG TABLET PO SCH ×2 (12:07→21:31)
[2017-05-17] MEDS: oxyCODONE/ACETAMINOPHEN 5-325 MG TABLET PO SCH ×3 (12:07→21:31)
[2017-05-17] MEDS: DEXILANT 60 MG PO SCH (12:08)
[2017-05-17] MEDS ORDERED: SODIUM CHLORIDE 3% IV ONE (13:00)
[2017-05-17] MEDS: cefTRIAXone 1,000 MG in SYRINGE 1 EACH IV SCH (17:23)
[2017-05-17] MEDS: TRACE ELEMENTS (5) 1 ML, MULTIVITAMIN INJ 10 ML in AMINO ACIDS/DEXT/LYTE 4.25-15% 2,000 ML IV SCH (17:34)
[2017-05-17] MEDS: FAT EMULSION 20% 250 ML IV SCH (17:34)
[2017-05-17] MEDS ORDERED: PROPOFOL 1,000 MG/100 ML BOTTLE IV SCH (21:00)
[2017-05-17] MEDS ORDERED: DOPamine 800 MG/250 ML PREMIX IV SCH (21:00)
[2017-05-18] MEDS: INSULIN REGULAR 100 UNIT/ML SUBCUT SCH ×4 (00:48→17:48)
[2017-05-18] MEDS: methylPREDNISolone SOD SUC 40 MG/1 ML VIAL IV SCH ×4 (02:56→21:30)
[2017-05-18] MEDS: metroNIDAZOLE INJ 250 MG in IV BAG 1 EACH IV SCH ×4 (02:56→21:29)
[2017-05-18] MEDS: PROPOFOL 1,000 MG/100 ML BOTTLE IV SCH ×2 (04:42→21:29)
[2017-05-18 05:40] LABS: ABG Base Excess 7.6 MMOL/L (-2.5-2.5); ABG HCO3 32.5 MMOL/L (20-26); ABG Oxygen Saturation 98.8 % (95-100); ABG PCO2 47.5 MM HG (35-48); ABG PH 7.453 (7.35-7.45); ABG PO2 280.7 MM HG (80-95)
[2017-05-18 06:30] LABS: Albumin 3.7 G/DL (3.4-5.0); Bilirubin,Total 0.8 MG/DL (0.2-1.0); Calcium 7.8 MG/DL (8.5-10.1); Osmolality,Calculated 279.8 MOS/KG (273-304); Potassium 4.6 MMOL/L (3.5-5.1); Total Protein 5.4 G/DL (6.4-8.3)
[2017-05-18] MEDS: ALBUMIN 25% 25 GM in PREMIX 1 EACH IV SCH ×3 (06:47→21:31)
[2017-05-18] MEDS: FORMOTEROL 20 MCG/2 ML NEB RESP TX SCH ×2 (08:03→19:40)
[2017-05-18] MEDS: BUDESONIDE 0.5 MG/2 ML NEB RESP TX SCH ×2 (08:04→19:40)
[2017-05-18] MEDS: SODIUM CHLORIDE 0.9% 1,000 ML IV SCH ×2 (08:52→23:48)
[2017-05-18] MEDS: FEXOFENADINE 60 MG TABLET PO SCH (08:54)
[2017-05-18] MEDS: MIDODRINE 5 MG TABLET PO SCH (08:54)
[2017-05-18] MEDS: ALPRAZolam 0.25 MG TABLET PO SCH ×3 (08:54→21:30)
[2017-05-18] MEDS: BISACODYL 10 MG SUPP RECTAL SCH (08:55)
[2017-05-18] MEDS: POLYETHYLENE GLYCOL POWDER 17 GM PACK PO SCH (08:55)
[2017-05-18] MEDS: oxyCODONE/ACETAMINOPHEN 5-325 MG TABLET PO SCH ×3 (08:55→21:30)
[2017-05-18] MEDS: DOCUSATE SODIUM 100 MG CAPSULE PO SCH ×2 (08:55→21:30)
[2017-05-18] MEDS: POTASSIUM CHLORIDE 20 MEQ TABLET PO SCH (08:55)
[2017-05-18] MEDS: LIDOCAINE 5% PATCH TRANSDERM SCH (08:55)
[2017-05-18] MEDS: ASPIRIN EC 81 MG TABLET PO SCH (08:55)
[2017-05-18] MEDS: METOPROLOL TARTRATE 25 MG TABLET PO SCH ×2 (08:57→21:30)
[2017-05-18] MEDS: FLUTICASONE 50 MCG NASAL SPRAY 16 GM BOTTLE BOTH NARES SCH ×2 (09:26→21:30)
[2017-05-18] MEDS: DEXILANT 60 MG PO SCH (09:26)
[2017-05-18] MEDS: ALBUTEROL/IPRATROPIUM 3 ML NEB RESP TX SCH ×2 (13:41→19:40)
[2017-05-18] MEDS: cefTRIAXone 1,000 MG in SYRINGE 1 EACH IV SCH (16:11)
[2017-05-18] MEDS: DOPamine 800 MG/250 ML PREMIX IV SCH (21:29)
[2017-05-18 23:09] VITALS: BP 112/67
== END 2017-05-18 21:56 | disposition expired | DRG 391 ==
LOC: N.ED 12:06 → N.EDINP 15:37 → N.5E 16:37 → N.CC 05-17 00:52
PROVIDERS: ADMIT Internal Medicine; ATTEND Internal Medicine